=== PATIENT | female | born 1955 | race Caucasian/White ===

== ENCOUNTER 2022-01-04 09:54 | Outpatient (CLI) | payer MEDICARE, SELFPAY ==
[2022-01-04 13:31] LABS: Basophils Absolute Auto 0.03 K/uL (0.00-0.30); Basophils Percent Auto 0.4 % (0.0-3.0); Eosinophils Percent Auto 1.5 % (0.0-7.0); Hematocrit 37.9 % (33.0-51.0); Hemoglobin* 12.3 gm/dL (12.0-16.0); Lymphocytes Absolute Auto 1.83 K/uL (0.90-2.90); Lymphocytes Percent Auto 27.1 % (20-44); Mean Corpuscular HGB Conc 33 gm/dL (32-36); Mean Corpuscular Hemoglobin 31 pg (26-34); Mean Corpuscular Volume 95 fL (80-100); Monocytes Percent Auto 6.8 % (0.0-11.0); Neutrophils Absolute Auto 4.33 K/uL (1.7-7.0); Neutrophils Percent Auto 64.2 % (42.0-72.0); Platelet Count* 259 K/uL (140-440); RDW Coefficient of Variation % 12.2 % (11.5-15.5); Red Blood Count 3.99 m/uL (4.00-5.20); White Blood Count* 6.75 K/uL (4.50-11.00)
[2022-01-04 13:34] LABS: Slide Review Reflex No
== END 2022-01-04 09:55 | disposition home or self-care (01) ==
LOC: KYNREF 10:20
PROVIDERS: PCP Nurse Practitioner Family; Visit Provider Nurse Practitioner Family
DX: R53.83 Other fatigue (principal)
CPT/HCPCS: 36415; 85025

== ENCOUNTER 2022-07-15 11:11 | Outpatient (CLI) | payer MEDICARE, SELFPAY ==
[2022-07-15 13:23] LABS: Chloride* 103 mmol/L (96-114); Potassium* 4.1 mmol/L (3.6-5.1); Sodium* 139 mmol/L (135-149)
[2022-07-15 13:25] LABS: Basophils Absolute Auto 0.07 K/uL (0.00-0.30); Eosinophils Percent Auto 1.4 % (0.0-7.0); Hematocrit 41.1 % (33.0-51.0); Hemoglobin* 13.2 gm/dL (12.0-16.0); Lymphocytes Absolute Auto 2.03 K/uL (0.90-2.90); Lymphocytes Percent Auto 27.9 % (20-44); Mean Corpuscular HGB Conc 32 gm/dL (32-36); Mean Corpuscular Hemoglobin 31 pg (26-34); Mean Corpuscular Volume 96 fL (80-100); Monocytes Percent Auto 8.2 % (0.0-11.0); Neutrophils Absolute Auto 4.48 K/uL (1.7-7.0); Neutrophils Percent Auto 61.5 % (42.0-72.0); Platelet Count* 255 K/uL (140-440); Red Blood Count 4.28 m/uL (4.00-5.20); White Blood Count* 7.28 K/uL (4.50-11.00)
[2022-07-15 13:26] LABS: Carbon Dioxide* 30 mmol/L (20-32); Creatinine* 0.7 mg/dL (0.5-1.5); Estimated Glomerular Filt Rate 95 ml/min
[2022-07-15 13:27] LABS: Blood Urea Nitrogen* 21 mg/dL (7-30); Calcium* 9.7 mg/dL (8.4-10.6); Glucose* 107 mg/dL (60-115)
[2022-07-15 13:36] LABS: Slide Review Reflex No
[2022-07-15 13:43] LABS: Troponin I* < 0.01 ng/mL (0.01-0.04)
[2022-07-15 13:50] LABS: Vitamin D 25 Hydroxy* 15 ng/mL (30-80)
== END 2022-07-15 11:12 | disposition home or self-care (01) ==
PROVIDERS: PCP Nurse Practitioner Family; Visit Provider Nurse Practitioner Family
DX: R53.83 Other fatigue (principal); R07.9 Chest pain, unspecified; E03.9 Hypothyroidism, unspecified; Z79.899 Other long term (current) drug therapy; I10 Essential (primary) hypertension; F41.9 Anxiety disorder, unspecified
CPT/HCPCS: 80048; 82306; 84443; 84484; 85025

== ENCOUNTER 2022-09-01 15:09 | Outpatient (CLI) | payer MEDICARE, SELFPAY ==
--- NOTE | 2022-09-01 15:20 | CRLHL7_ITS ---
For Patients: As a result of the Cures Act, medical imaging exams and procedure reports are released immediately into your electronic medical record. You may view this report before your referring provider. If you have questions, please contact your health care provider. BILATERAL SCREENING MAMMOGRAM WITH COMPUTER-AIDED DETECTION AND TOMOSYNTHESIS TECHNIQUE: CC and MLO views were obtained. These mammographic images have been obtained using full-field digital technique. These mammographic images were interpreted with the benefit of computer-aided detection. Breast tomosynthesis was used in this interpretation. COMPARISON FILM: 06/24/21; 01/17/20; 10/21/17. FINDINGS: There are scattered areas of fibroglandular density. IMPRESSION: There is no radiographic evidence for malignancy. ASSESSMENT: BI-RADS Category 1: Negative RECOMMENDATION: Routine screening mammogram in 1 year. A lay language report of this examination will be provided to the patient. ASCENCION GRAHAM M.D. Diagnostic Radiologist [email or web address] Transcribed: 09/02/2022, 2:[address]/Dictated by: Ascencion Graham MD @ 09/02/2022 8:52:00 AM (Electronically Signed)
== END 2022-09-01 15:10 | disposition home or self-care (01) ==
LOC: MAMMO 15:10
PROVIDERS: PCP Nurse Practitioner Family; Visit Provider Nurse Practitioner Family
DX: Z12.31 Encounter for screening mammogram for malignant neoplasm of breast (principal)
CPT/HCPCS: 77063; 77067

== ENCOUNTER 2023-03-17 09:59 | Outpatient (CLI) | payer MEDICARE, SELFPAY ==
[2023-03-17 14:22] LABS: SARS PCR* Negative SARS-CoV-2 (Negative)
== END 2023-03-17 10:00 | disposition home or self-care (01) ==
LOC: KYNREF 09:59
PROVIDERS: PCP Nurse Practitioner Family; Visit Provider Nurse Practitioner Family
DX: J11.1 Influenza due to unidentified influenza virus with other respiratory manifestations (principal); R53.83 Other fatigue
CPT/HCPCS: 87635

== ENCOUNTER 2023-07-04 14:51 | Outpatient (CLI) | payer MEDICARE, SELFPAY ==
--- OUTSIDE RECORDS SUMMARY | 2023-07-04 14:57 | XMS_ITS | Encounter Summary ---
Author Name Unknown Organization [facility] Address [address] [place] [address] Care Team Providers Care Hoof And Shoe Inspector Name Role Phone Elsewhere, Pcp Primary Care Provider Unavailabl e Reason for Visit * Reason Comments Med Refill Encounter Details Date Type Department Care Team (Late st Contact Info) Description 07/03/2022 Refill Department of Family Medicine, [facility], in [place], [place] [address] [place] [address] Navi Nguyen, Malathi-Trae., P.A. [address] [place] [address] Med Refill Social History Tobacco Use Types Packs/Day Years Used Date Smoking Tobacco: Never Smokeless Tobacco: Never Alcohol Use Standard Drinks/Week Comments No 0 (1 standard drink = 0.6 oz pur e alcohol) rare Humiliation, Afraid, Rape, and Kick questionnair e Answer Date Recorded Within the last year, have y ou been afraid of your partner or ex-partner? No 06/24/2021 Within the last year, have y ou been humiliated or emotionally abused in other ways by your partner or ex-partner? No Within the last year, have y ou been kicked, hit, slapped, or otherwise physically hurt by your partner or ex-partner? No 06/24/2021 Within the last year, have y ou been raped or forced to have any kind of sexual activity by your partner or ex-partner? No 06/24/2021 Social Connection and Isolat ion Panel [NHANES] Answer Date Recorded In a typical week, how many times do you talk on the phone with family, friends, or neighbors? More than three times a week 06/24/2021 How often do you get togethe r with friends or relatives? Three times a week 06/24/2021 How often do you attend chur ch or uatsdin services? More than 4 times per year 06/24/2021 Do you belong to any clubs o r organizations such as cheondoism groups, unions, fraternal or athletic groups, or school groups? Yes 06/24/2021 How often do you attend meet ings of the clubs or organizations you belong to? 1 to 4 times per year 06/24/2021 Are you , , di vorced, , never , or living with a partner? 06/24/2021 AUDIT-C Answer Date Recorded Q1: How often do you have a drink containing alc ohol? Never 06/24/2021 Q2: How many drinks containi ng alcohol do you have on a typical day when you are drinking? 1 or 2 06/24/2021 Q3: How often do you have six or more drinks on one occasion? Never 06/24/2021 Overall Financial Resource Strain (CARDIA) Answe r Date Recorded How hard is it for you to pa y for the very basics like food, housing, medical care, and heating? Not hard at all 06/24/2021 PHQ-2 Answer Date Recorded PHQ-2 Score 1 03/25/2021 [facility] Answer Date Recorded Do you feel stress - tense, restless, nervous, or anxious, or unable to sleep at night because your mind is troubled all the time - these days? To some extent 06/24/2021 Exercise Vital Sign Answer Date Recorde d On average, how many days pe r week do you engage in moderate to strenuous exercise (like a brisk walk)? 3 days 06/24/2021 On average, how many minutes do you engage in exercise at this level? 30 min 06/24/2021 Hunger Vital Sign Answer Date Recorded Within the past 12 months, y ou worried that your food would run out before you got the money to buy more. Never true 06/24/19 Within the past 12 months, t he food you bought just didn't last and you didn't have money to get more. Never true 06/24/2021 PRAPARE - Transportation Answer Date Re corded In the past 12 months, has l ack of transportation kept you from medical appointments or from getting medications? No 06/13 In the past 12 months, has l ack of transportation kept you from meetings, work, or from getting things needed for daily living? No 06/24/2021 Housing Stability Vital Sign Answer Tony e Recorded In the last 12 months, was t here a time when you were not able to pay the mortgage or rent on time? No 06/24/2021 In the last 12 months, how many places have you lived? 1 06/24/2021 In the last 12 months, was t here a time when you did not have a steady place to sleep or slept in a long term (including now)? No 06/24/2021 Depression Answer Date Recor ded PHQ-9 Total Score (max 27) 7 03/25 Nutrition Answer Date Recorded Nutrition: EVOO Fat Source Yes 06/24 On average, how many serving s of fruits and vegetables do you eat per day (serving size is equal to 1 cup or approximately the size of a tennis ball)? 2-3 06/24/2021 Dental Answer Date Recorded Dental: Regular Dentist Yes 12/11/19 Employment Answer Date Recorded Employment status Retired 06/24/2021 Education Answer Date Recorded What is the highest level of school you have completed or the highest degree you have received? 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
--- OUTSIDE RECORDS SUMMARY | 2023-07-04 14:57 | XMS_ITS | Encounter Summary ---
Author Name Unknown Organization [facility] Address [address] [place] [address] Care Team Providers Care Spring Layer Name Role Phone Elsewhere, Pcp Primary Care Provider Unavailabl e Reason for Referral * MRI/CAT/PET Scan (Routine) - Closed Specialty Diagnoses / Procedures Referred By Contac t Referred To Contact Radiology Diagnoses Nodules Pulmonary Multiple Procedures CT Chest without IV Contrast LA CT THORAX WO CNTRST LA 3D WO IND WORKSTATION Sravanthi Atkins M.D. [address] [place] [phone] [facility] Referral ID Status Reason Start Date Expiration Date Visits Re quested Visits Authorized [id number] Closed 08/30/2022 08/30/2023 1 1 Reason for Visit * MRI/CAT/PET Scan (Routine) - Closed Specialty Diagnoses / Procedures Referred By Contac t Referred To Contact Radiology Diagnoses Nodules Pulmonary Multiple Procedures CT Chest without IV Contrast LA CT THORAX WO CNTRST LA 3D WO IND WORKSTATION Sravanthi Atkins M.D. [address] [place] [phone] [facility] Referral ID Status Reason Start Date Expiration Date Visits Re quested Visits Authorized [id number] Closed 08/30/2022 08/30/2023 1 1 Encounter Details Date Type Department Care Team (Latest Contact Info) Description 11/30/2022 8:56 AM CDT - 11/30/2022 11:59 PM CDT Hospital Encounter Department of Radiology, [facility], in [place], [place] [address] [place] [address] Sravanthi Atkins M.D. [address] [place] [address] Nodules Pulmonary Multiple Discharge Disposition: Home or Self Care Social History Tobacco Use Types Packs/Day Years [...] 06/24/2021 How often do you attend chur or bahai services? More than 4 times per year 06/24/2021 Do you belong to any clubs o r organizations such as druze groups, unions, fraternal or athletic groups, or [...] Answer Date Recorded PHQ-2 Score 1 03/25/2021 [facility] - Occupational Stress Questionnaire Answer Date Recorded [...] money to buy more. Never true 06/24/19 22 Within the past 12 months, t he [...] place to sleep or slept in a half-way (including now)? No 06/24/2021 Depression Answer Date [...] Date Recorded Dental: Regular Dentist Yes 12/11/19 21 Employment Answer Date Recorded Employment status Retired 06/24/2021 Education Answer Date Recorded What is the highest level of school you have completed or the highest degree you have received? 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 0 08/27/2014 hydroCHLOROthiazide (HYDRODIURIL) 25 mg tablet Take 1 tablet (25 mg total) by mouth daily. 90 tablet 0 04/07/2022 ibuprofen (for_ADVIL,MOTRIN) 200 mg tablet Take 1-2 tablets by mouth as needed. 0 01/03/2012 levothyroxine (SYNTHROID, LEVOTHROID) 75 mcg tablet Take 1 tablet (75 mcg total) by mouth daily with breakfast. 90 tablet 0 04/07/2022 omeprazole (PriLOSEC) [address] capsule Take 1 capsule (40 mg total) by mouth every morning before breakfast. 90 capsule 0 04/07/2022 sertraline (ZOLOFT) 100 mg tablet Take 1.5 tablets (150 mg total) by mouth daily. 135 tablet 3 07/05/2022 Ventolin HFA inhaler INHALE TWO PUFFS BY MOUTH EVERY 6 HOURS NEEDED FOR WHEEZING 1 Inhaler 3 06/24/2020 documented as of this encounter Plan of Treatment Not on file documented as of this encounter Procedures Procedure Name Priority Date/Time Associated Diagnosis Comments CT CHEST WITHOUT IV CONTRAST RAD - Routine (most inpatients and all outpatients) 11/30/2022 9:09 AM CDT Nodules Pulmonary Multiple documented in this encounter Results * CT Chest without IV Contrast (11/30/2022 9:09 AM CDT) Anatomical Region Laterality Modality Chest, Thoracic RST LOS, Tho racic ARZ LOS, Thoracic FLA LOS N/A Computed Tomography, Compute d Tomography 11/30/2022 2:55 PM CDT Impressions 11/30/2022 3:17 PM CDT Unchanged pulmonary nodules. Narrative 11/30/2022 3:17 PM CDT EXAM: CT CHEST WITHOUT IV CONTRAST COMPARISON: CT chest with IV contrast 08/30/2022. FINDINGS: Multiple bilateral noncalcified solid pulmonary nodules are unchanged in size and number. Nodules measure between sub-3 mm (example in the peripheral left upper lobe anterior segment on series 3, image 184) and 13 mm x 9 mm (average 11 mm in the central right middle lobe medial segment on series 3, image 329 and remeasured as 13 mm x 9 mm on prior series 3, image 342). Unchanged part solid pulmonary nodule measuring 11 mm greatest dimension part solid pulmonary nodule with 4 mm noncalcified solid component in the peripheral anterior right apex (series 3, images 67 and 68). Similar mild diffuse bronchial wall thickening and mosaic attenuation of the lungs compatible with small airway disease, however, no expiratory images obtained today to confirm air trapping. No pleural effusion or pneumothorax. Similar trace simple fluid in the superior pericardial recesses that should be physiologic. Mild multivessel coronary artery calcification by qualitative assessment. Similar fusiform ectasia of the thoracic aorta with mild calcification. Left-sided aortic arch with normal variant common origin of the innominate left common carotid arteries. Similar fusiform ectasia of the thoracic aortic arch branches. Main pulmonary artery measures upper limits of normal in caliber. Similar small sliding esophageal hiatal hernia. Nondilated upstream thoracic esophagus. No pneumomediastinum. No lymphadenopathy. Redemonstration of calcified subcarinal mediastinal lymph nodes consistent with remote granulomatous disease. Negative adrenal glands. Unchanged simple appearing hepatic cyst. Similar mild atrophy of the partially visualized proximal pancreas. Unchanged simple appearing intramuscular lipoma in the medial left pectoralis major muscle. Procedure Note Therese Andrade M.D. - 11/30/2022 EXAM: CT CHEST WITHOUT IV CONTRAST COMPARISON: CT chest with IV contrast 08/30/2022. FINDINGS: Multiple bilateral noncalcified solid pulmonary nodules are unchanged insize and number. Nodules measure between sub-3 mm (example in the peripheral left upper lobeanterior segment on series 3, image 184) and 13 mm x 9 mm (average 11 mm in the central right middlelobe medial segment on series 3, image 329 and remeasured as 13 mm x 9 mm on prior series 3, [id number]). Unchanged part solid pulmonary nodule measuring 11 mm greatest dimensionpart solid pulmonary nodule with 4 mm noncalcified solid component in the peripheral anterior rightapex (series 3, images 67 and 68). Similar mild diffuse bronchial wall thickening and mosaic attenuation ofthe lungs compatible with small airway disease, however, no expiratory images obtained today toconfirm air trapping. No pleural effusion or pneumothorax. Similar trace simple fluid in the superior pericardial recesses thatshould be physiologic. Mild multivessel coronary artery calcification by qualitative assessment.Similar fusiform ectasia of the thoracic aorta with mild calcification. Left-sided aortic arch with normalvariant common origin of the innominate left common carotid arteries. Similar fusiform ectasia ofthe thoracic aortic arch branches. Main pulmonary artery measures upper limits of normal incaliber. Similar small sliding esophageal hiatal hernia. Nondilated upstreamthoracic esophagus. No pneumomediastinum. No lymphadenopathy. Redemonstration of calcified subcarinal mediastinallymph nodes consistent with remote granulomatous disease. Negative adrenal glands. Unchanged simple appearing hepatic cyst. Similarmild atrophy of the partially visualized proximal pancreas. Unchanged simple appearing intramuscular lipoma in the medial leftpectoralis major muscle. IMPRESSION: Unchanged pulmonary nodules. Sravanthi RAYA CT PROCEDURES documented in this encounter Visit Diagnoses Diagnosis Nodules Pulmonary Multiple documented in this encounter Additional Health Concerns Assessment Noted Time PHQ-9 Depression Total Score: 7 03/25/20 21 1:02 PM CDT documented as of this encounter Care Teams Spring Layer Relationship Specialty Start Date End Date Elsewhere, Pcp PCP - General Internal Medicine 02/01/22 documented as of this encounter
--- OUTSIDE RECORDS SUMMARY | 2023-07-04 14:57 | XMS_ITS | Encounter Summary ---
Author Name Unknown Organization [facility] Address [address] [place] [address] Care Team Providers Care Boom Cat Operator Name Role Phone Elsewhere, Pcp Primary Care Provider Unavailabl e Reason for Referral * Outpatient (Routine) - Authorized Specialty Diagnoses / Procedures Referred By Farida arreola Referred To Contact Ophthalmology David Pinon Jr., M.D. [address], [place] [address] [facility] Region Referral ID Status Reason Start Date Expiration Date V isits Requested Visits Authorized [id number] Authorized 01/31/2023 01/30/2026 1 1 Reason for Visit * Reason Comments Eye Exam * Appointment Request (Routine) - Closed Specialty Diagnoses / Procedures Referred By Farida arreola Referred To Contact Ophthalmology Diagnoses Eye Examination Normal Referral ID Status Reason Start Date Expiration Date Visits Re quested Visits Authorized [id number] Closed 2022 2023 1 1 Encounter Details Date Type Department Care Team (Latest Contact Info) Description 01/31/2023 10:45 AM CDT Comprehensive Visit Department of Ophthalmology in [place], [place] [address], [place] [address] David Pinon Jr., M.D. [address], [place] [address] Preglaucoma Bilateral (Primary Dx); Sinusitis Acute Frontal Social History Tobacco Use Types Packs/Day Years [...] week 06/24/2021 How often do you attend [facility] or sikhism services? More than 4 times per year 06/24/2021 Do you belong to any clubs o r organizations such as confucianism groups, unions, fraternal or athletic groups, or [...] Answer Date Recorded PHQ-2 Score 1 03/25/2021 [facility] - Occupational Stress [...] place to sleep or slept in a [place] [facility] [place] (including now)? 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 - 01/31/2023 10:45 AM CDT Margaret Castillo was seen today for Eye Exam #1 Preglaucoma Bilateral #2 Sinusitis Acute Frontal OCT stable, but watch intraocular pressure #2 Keflex 500 QID po x 10 days If not better, new glasses RTO 1 year documented in this encounter Plan of Treatment Scheduled Referrals Name Type Priority Associated Diagnoses Order Schedule Ophthalmology office visit (clinic) Outpatient Referral Routine Expected: 02/01/2024 (Approximate), Expires: 05/03/2024 documented as of this encounter Procedures Procedure Name Priority Date/Time Associated Diagnosis Comments OPTICAL COHERENCE TOMOGRAPHY (OCT) - OPTIC NERVE - OU - BOTH EYES Routine 01/31/2023 11:39 AM CDT Preglaucoma Bilateral documented in this encounter Results * Optical Coherence Tomography - Optic Nerve - OU - Both Eyes (01/31/2023 11:39 AM CDT) Narrative OPHTHALMOLOGY IMAGING EXAM - 01/31/2023 11:39 AM CDT Pattern unchanged, RNFL thickness unchanged, cup-to-disc ratio unchanged. David Pinon Jr., M.D. OPHTH TOMOGRAPH Y OPHTHALMOLOGY IMAGING EXAM documented in this encounter Visit Diagnoses Diagnosis Preglaucoma Bilateral- Primary Sinusitis Acute Frontal documented in this encounter Additional Health Concerns Assessment Noted Time PHQ-9 Depression Total Score: 7 03/25/20 21 1:02 PM CDT documented as of this encounter Care Teams Boom Cat Operator Relationship Specialty Start Date End Date Elsewhere, Pcp PCP - General Internal Medicine 02/01/22 documented as of this encounter
--- OUTSIDE RECORDS SUMMARY | 2023-07-04 14:57 | XMS_ITS ---
Author Name Unknown Organization [facility] Address [address] [place] [address] Care Team Providers Care Assurance Analyst Name Role Phone Unavailable Unavailable Unavailable Surgery Details Not on file Complications Check Surgery Details section. Procedure Estimated Blood Loss Check Surgery Details section. Procedure Findings Check Surgery Details section. Procedure Specimens Taken Check Surgery Details section.
--- OUTSIDE RECORDS SUMMARY | 2023-07-04 14:57 | XMS_ITS | Referral Summary ---
Author Name Unknown Organization [facility] Address [address] [place] [address] Care Team Providers Care Food Safety Specialist Name Role Phone Elsewhere, Pcp Primary Care Provider Unavailabl e Source Comments Patient records contain information from all sites at [facility]. For routine questions regarding patient records, call [phone] during business hours, M-F 8:00 AM - 5:00 PM Central Time. Record requests for emergency care only can be directed to [phone] at any time.[facility] Allergies Active Allergy Reactions Criticality Noted Date Comments Hydrocortisone Other (see comments) Medium 01/31/2012 Throat tightening Triamcinolone Other (see comments) Medium 01/31/2012 Unclear symptoms and many years ago. Has tried other steroid formulations without recurrent or severe intolerances. Medications Medication Sig Dispensed Refills Start Date End Date Status acetaminophen (TYLENOL EXTRA STRENGTH) 500 mg tablet Take 1 tablet by mouth every 6 (six) hours as needed. 0 08/27/2014 Active ibuprofen (for_ADVIL,MOTRIN) 200 mg tablet Take 1-2 tablets by mouth as needed. 0 01/03/2012 Active ipratropium-albute rol (DUO-NEB) 0.5-2.5 mg/3 mL nebulizer solution Take 3 mL by nebulization 4 (four) times a day as needed for wheezing or shortness of breath (shortness of breath, wheezing). 360 mL 11 06/19/2018 Active Ventolin HFA inhaler INHALE TWO PUFFS BY MOUTH EVERY 6 HOURS NEEDED FOR WHEEZING 1 Inhaler 3 06/24/2020 Active hydroCHLOROthiazid e (HYDRODIURIL) 25 mg tablet Take 1 tablet (25 mg total) by mouth daily. 90 tablet 0 04/07/2022 Active levothyroxine (SYNTHROID, LEVOTHROID) 75 mcg tablet Take 1 tablet (75 mcg total) by mouth daily with breakfast. 90 tablet 0 04/07/2022 Active omeprazole (PriLOSEC) [address] capsule Take 1 capsule (40 mg total) by mouth every morning before breakfast. 90 capsule 0 04/07/2022 Active sertraline (ZOLOFT) 100 mg tablet Take 1.5 tablets (150 mg total) by mouth daily. 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, unspecified Asthma NOS 07/08/2009 Overview: Asthma Chronic Asthma Chronic 04/23/2009 Resolved Problems Problem Noted Date Diagnosed Date Resolved Date Nevi Multiple 09/30/2017 01/19/2021 Need Vaccine Immunization 05/26/2017 Hypertension Chronic 06/09/2012 021 Immunizations Name Administration Dates Next Due DTP 03/21/1962,06/13/1956 DTaP (Infanrix, Tripedia) 03/12/2009 HepB, Unspecified 10/06/1992,05/15/1992,04/04/19 92 Influenza (IM) Preservative Free 05/08/2013 Influenza, Seasonal, Injectable 04/30/2008 Influenza, Unspecified 03/12/2009,05/31/2007 OPV 05/09/1973,06/13/1957,06/13/1956 PPSV23 01/19/2021,04/23/2009 SARS-COV-2 (COVID-19) - PFIZ ER (12 years or older) 10/07/2020,09/03/2020 Td (Adult), adsorbed 03/21/1990,06/13/1964 Td Preservative Free (TENIVA C, DECAVAC) 01/02/2020 Td, (Adult) Unspecified 11/25/1997,05/09/1993 Tdap 03/12/2009,04/30/2008 influenza vaccine quad (FLUZONE/FLUARIX) (6 months and older)(PF) 03/26/2020,05/26/2017,07/26/2016,2013 Social History Tobacco Use Types Packs/Day Years Used Date Smoking Tobacco: Never Smokeless Tobacco: Never Tobacco Cessation:Counseling Given: Yes Alcohol Use Standard Drinks/Week Comments No 0 [...] How often do you attend chur or orthodox services? More than 4 times per year 06/24/2021 Do you belong to any clubs o r organizations such as jain groups, unions, fraternal or athletic groups, or [...] Answer Date Recorded PHQ-2 Score 1 03/25/2021 [facility] - Occupational Stress [...] place to sleep or slept in a prison (including now)? 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 Gender Identity Female 01/12/2018 9:08 AM CDT Sexual Orientation Straight 01/12/2018 9: 08 AM CDT Last Filed Vital Signs Vital Sign Reading Time Taken Comments Blood Pressure 121/66 01/19/2021 11:15 AM CDT Pulse 65 01/19/2021 11:15 AM CDT Temperature 36.5 ??C (97.7 ??F) 01/19/2021 11:15 AM C DT Respiratory Rate 16 01/19/2021 11:15 AM CDT Oxygen Saturation 96% 01/19/2021 11:15 AM CDT Inhaled Oxygen Concentration - - Weight 89 kg (196 lb 3.4 oz) 01/19/2021 11:15 AM CDT Height 160 cm (5' 2.99) 01/19/2021 11:15 AM CDT Body Mass Index 34.77 01/19/2021 11:15 AM CDT Plan of Treatment Not on file Care Teams Food Safety Specialist Relationship Specialty Start Date End Date Elsewhere, Pcp PCP - General Internal Medicine 02/01/22
--- OUTSIDE RECORDS SUMMARY | 2023-07-04 14:57 | XMS_ITS | Encounter Summary ---
Author Name Unknown Organization [facility] Address [address] [place] [address] Care Team Providers Care Cinder Worker Name Role Phone Elsewhere, Pcp Primary Care Provider Unavailabl e Encounter Details Date Type Department Care Team (Late st Contact Info) Description 01/31/2023 11:30 AM CDT Silent Schedule Department of Ophthalmology in [place], [place] [address] [phone] David Pinon Jr., M.D. [address] [address] Social History Tobacco Use Types Packs/Day Years [...] often do you attend chur ch or gnosticism services? More than 4 times per year 06/24/2021 Do you belong to any clubs o r organizations such as jainism groups, unions, fraternal or athletic groups, or [...] Answer Date Recorded PHQ-2 Score 1 03/25/2021 [facility] Questionnaire Answer Date Recorded [...] place to sleep or slept in a senior care (including now)? 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
--- OUTSIDE RECORDS SUMMARY | 2023-07-04 14:57 | XMS_ITS | Encounter Summary ---
Author Name Unknown Organization [facility] Address [address] [place] [address] Care Team Providers Care Mine Car Mechanic Name Role Phone Elsewhere, Pcp Primary Care Provider Unavailabl e Reason for Visit * Reason Comments Med Refill Encounter Details Date Type Department Care Team (Late st Contact Info) Description 07/05/2022 Refill Department of Family Medicine, [facility], in [place], [place] [address] [place] [address] Navi Nguyen, Malathi-Trae., P.A. [address] [place] [address] Med Refill Social History Tobacco [...] often do you attend chur ch or judaism services? More than 4 times per year 06/24/2021 Do you belong to any clubs o r organizations such as yarsanism groups, unions, fraternal or athletic groups, or [...] Answer Date Recorded PHQ-2 Score 1 03/25/2021 [facility] Questionnaire Answer Date [...] place to sleep or slept in a [facility] (including now)? 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
--- OUTSIDE RECORDS SUMMARY | 2023-07-04 14:57 | XMS_ITS | Clinical Summary ---
Author Name Unknown Organization [facility] Address [address] [place] [address] Care Team Providers Care Slurry Tank Tender Name Role Phone Elsewhere, Pcp Primary Care Provider Unavailabl e Source Comments Patient records contain information from all sites at [facility]. For routine questions regarding patient records, call [phone] during business hours, M-F 8:00 AM - 5:00 PM Central Time. Record requests for emergency care only can be directed to [phone] at any time.[facility] Allergies Active Allergy Reactions Criticality Noted Date [...] quad (FLUZONE/FLUARIX) (6 months and older)(PF) 03/26/2020,05/26/2017,07/26/2016,2013 Family History Medical History Relation Name Comments No Known Problems Brother 1 Colon cancer Brother 2 Diabetes Brother 3 Lung cancer Brother 4 Smoker Brother 4 No Known Problems Brother 5 COPD Father Diabetes Father Hypertension Father Smoker Father Stroke Father Breast cancer Father's Sister Cataracts Mother Coronary artery disease Mother Diabetes Mother Endometrial cancer Mother Heart attack Mother stents Hip fracture Mother Hypertension Mother Lung cancer Mother secondhand smok e exposure No Known Problems Sister 1 No Known Problems Sister 2 Relation Name Status Comments Brother 1 (Age 42) Brother 2 Alive Brother 3 Alive Brother 4 Alive Brother 5 Alive Father (Age 81) Father's Sister Maternal Grandfather Maternal Grandmother Mother (Age 83) Paternal Grandfather Paternal Grandmother Sister 1 Alive Sister 2 Alive Social History Tobacco Use Types Packs/Day Years [...] often do you attend chur ch or episcopal services? More than 4 times per year 06/24/2021 Do you belong to any clubs o r organizations such as jew groups, unions, fraternal or athletic groups, or [...] Answer Date Recorded PHQ-2 Score 1 03/25/2021 [facility] - Occupational [...] Sex Assigned at Female 06/24/2021 3:47 PM BODY HANGER Gender Identity Female 01/12/2018 9:08 AM CDT [...] 01/19/2021 11:15 AM CDT Plan of Treatment Health Maintenance Due Date Last Done Comments Bone Density Scan (Osteoporo sis Screen) 1955 CT Colonography 1955 Cologuard 1955 Office Visit for Blood Press ure Check / Re-check 1955 Zoster Vaccines (1 of 2) 08/23/2005 Colonoscopy 07/14/2017 07/14/2012 (Perf ormed elsewhere), 05/14/2008 Colorectal Cancer Surveillance 07/14/2017 Mammogram 01/16/2021 01/17/2020, 05/0 06/2017, 07/22/2016, Additional history exists Depression Monitoring (PHQ-9) 07/26/2021 03/25/2021 Creatinine Level (Kidney Fun ction Test) 12/18/2021 12/18/2020, 05/12/2020, 01/17/2020, Additional history exists Lipid (Cholesterol) Screening 12/18/2021, 01/17/2020, 09/29/2017, Additional history exists Potassium Level 12/18/2021 12/18/2020, 04/15, 01/17/2020, Additional history exists Sodium Level 12/18/2021 12/18/2020, 04/15, 01/17/2020, Additional history exists Thyroid Stimulating Hormone (TSH) test for thyroid function 12/18/2021 12/18/2020, 01/17/2020, 09/29/2017, Additional history exists Pneumococcal vaccine (65+ ye ars) (2 of 2 - PCV) 01/19/2022 01/19/2021, 04/23/2009 COVID-19 Vaccine (4 - 2022-2 4 season) 2023 05/09/2021, 10/07/2020, 09/03/2020 Influenza Vaccine (#1) 2023 , 03/26/2020, 05/26/2017, Additional history exists Fall Risk Screen (Annual) 06/13/2023 Fasting Glucose for Diabetes Screening 12/19/2023 12/18/2020, 05/12/2020, 01/17/2020, Additional history exists DTaP,Tdap,and Td Vaccines (9 - Td or Tdap) 04/16/2031 04/16/2021, 01/02/2020, 03/12/2009, Additional history exists Hepatitis B Vaccines Completed 10/06/1992, 05/15/1992, 04/04/1992 Hepatitis C Screening Completed 09/29/2017 Care Teams Slurry Tank Tender Relationship Specialty Start Date End Date Elsewhere, Pcp PCP - General Internal Medicine 02/01/22
--- OUTSIDE RECORDS SUMMARY | 2023-07-04 14:57 | XMS_ITS | Encounter Summary ---
Author Name Unknown Organization [facility] Address [address] [place] [address] Care Team Providers Care Credit And Collections Analyst Name Role Phone Elsewhere, Pcp Primary Care Provider Unavailabl e Reason for Referral * MRI/CAT/PET Scan (Routine) - Closed Specialty Diagnoses / Procedures Referred By Elinaac t Referred To Contact Radiology Diagnoses Nodules Pulmonary Multiple Procedures CT Chest without IV Contrast Sravanthi Atkins M.D. [address] [place] [phone] [facility] Referral ID Status Reason Start Date Expiration Date Visits Re quested Visits Authorized [id number] Closed 02/08/2022 02/08/2023 1 1 Reason for Visit * MRI/CAT/PET Scan (Routine) - Closed Specialty Diagnoses / Procedures Referred By Farida arreola Referred To Contact Radiology Diagnoses Nodules Pulmonary Multiple Procedures CT Chest without IV Contrast Sravanthi Atkins M.D. [address] [place] [phone] [facility] Referral ID Status Reason Start Date Expiration Date Visits Re quested Visits Authorized [id number] Closed 02/08/2022 02/08/2023 1 1 Encounter Details Date Type Department Care Team (Latest Contact Info) Description 08/30/2022 9:48 AM CDT - 08/30/2022 11:59 PM CDT Hospital Encounter Department of Radiology, [facility] in [place], [place] [address] [place] [phone] Sravanthi Atkins M.D. [address] [place] [address] Nodules Pulmonary Multiple Discharge Disposition: Home or [...] week 06/24/2021 How often do you attend [facility] or [facility] services? More than 4 times per year 06/24/2021 Do you belong to any clubs o r organizations such as episcopal groups, unions, fraternal or athletic groups, or [...] Answer Date Recorded PHQ-2 Score 1 03/25/2021 [facility] - Occupational Stress Questionnaire Answer Date Recorded [...] place to sleep or slept in a assisted (including now)? 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 2. ??Slow increase in size of part solid nodule in the right apex, suspicious for low-grade adenocarcinoma. Continued CT follow-up suggested. 3. ??Multiple other bilateral lung nodules are unchanged from recent prior exams, but have increased in size since 2012. Narrative 08/30/2022 10:48 AM CDT EXAM: CT CHEST WITHOUT IV CONTRAST COMPARISON: CT chest 02/08/2022, 06/16/2021 and 2012 FINDINGS: Multiple noncalcified pulmonary solid nodules bilaterally, overall not significantly changed since outside exam 02/08/2022. For example a 12 x 9 mm nodule in the right middle lobe (series 3, image 346), a 5 mm nodule in the right lower lobe (series 3, images 294) and a 4 mm nodule in the left lower lobe (series 3, image 251). Several of the nodules have increased in size compared with the earlier exam from 2012. Slow increase in size of the part solid pulmonary nodule in the right apex. It now measures 11 x 6 mm with a 4 mm solid component (series 3, image 84) compared to 6 x 5 mm with a 3 mm solid component on 06/16/2021 and a 5 mm groundglass nodule on 2012. A 7 x 5 mm nodule in the right lower lobe anteriorly near the major fissure (3/279) has increased from 5 x 4 mm in 2013. A 12 x 9 mm nodule In the right middle lobe medially (3/346) has increased from 10 x 6 mm in 2013. A 5 mm nodule in the right lower lobe laterally (3/294) has increased from 3 mm in 2013. No definite new nodule. Bilateral calcified granulomas with calcified mediastinal node Stable subtle bronchial wall thickening. Mosaic attenuation with moderate air trapping on expiratory images. No pleural effusion. Mild coronary artery calcifications. Unchanged left pectoralis major intramuscular lipoma. Mild degenerative changes of the spine. No suspicious osseous lesions. Small esophageal hiatal hernia. Normal adrenal glands. Stable hepatic cyst. Left renal cyst. Procedure Note Anil Lopes M.D. - 08/30/2022 EXAM: CT CHEST WITHOUT IV CONTRAST COMPARISON: CT chest 02/08/2022, 06/16/2021 and 2012 FINDINGS: Multiple noncalcified pulmonary solid nodules bilaterally, overall notsignificantly changed since outside exam 02/08/2022. For example a 12 x 9 mm nodule in the right middlelobe (series 3, image 346), a 5 mm nodule in the right lower lobe (series 3, images 294) and a 4mm nodule in the left lower lobe (series 3, image 251). Several of the nodules have increased in size compared with the earlierexam from 2012. Slow increase in size of the part solid pulmonary nodule in the right apex. Itnow measures 11 x 6 mm with a 4 mm solid component (series 3, image 84) compared to 6 x 5 mm witha 3 mm solid component on 06/16/2021 and a 5 mm groundglass nodule on 2012. A 7 x 5 mm nodulein the right lower lobe anteriorly near the major fissure (3/279) has increased from 5 x 4 mm [id number]. A 12 x 9 mm nodule In the right middle lobe medially (3/346) has increased from 10 x 6 mm [id number]. A 5 mm nodule in the right lower lobe laterally (3/294) has increased from 3 mm in 2013. No definite new nodule. Bilateral calcified granulomas with calcifiedmediastinal node Stable subtle bronchial wall thickening. Mosaic attenuation with moderateair trapping on expiratory images. No pleural effusion. Mild coronary artery calcifications. Unchanged left pectoralis major intramuscular lipoma. Mild degenerativechanges of the spine. No suspicious osseous lesions. Small esophageal hiatal hernia. Normal adrenal glands. Stable hepaticcyst. Left renal cyst. IMPRESSION: 1. 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 2. Slow increase in size of part solid nodule in the right apex,suspicious for low-grade adenocarcinoma. Continued CT follow-up suggested. 3. Multiple other bilateral lung nodules are unchanged from recent priorexams, but have increased in size since 2013. Sravanthi Atkins M.D. IMG CT PROCEDURES documented in this encounter Visit Diagnoses Diagnosis Nodules Pulmonary Multiple documented in this encounter Additional Health Concerns Assessment Noted Time PHQ-9 Depression Total Score: 7 03/25/20 21 1:02 PM CDT documented as of this encounter Care Teams Credit And Collections Analyst Relationship Specialty Start Date End Date Elsewhere, Pcp PCP - General Internal Medicine 02/01/22 documented as of this encounter
--- OUTSIDE RECORDS SUMMARY | 2023-07-04 14:58 | XMS_ITS | Clinical Summary ---
Author Name Unknown Organization [facility] Address [place], [place] [address] Care Team Providers Care Certified Nurses Aide Name Role Phone Tiffany Fowler NP Primary Care Provider [phone] Allergies No known active allergies Medications Medication Sig Dispensed Refills Start Date End Date Status Levothyroxine 75 mcg cap Take by mouth. 0 Active omeprazole (PRILOSEC) 40 mg Delayed-Release capsuleIndications: heartburn Take 40 mg by mouth once daily. Indications: HEARTBURN 0 Active metoprolol (LOPRESSOR) 25 mg tabletIndications:h ypertension Take 25 mg by mouth 2 times daily. Indications: HYPERTENSION 0 Active hydrochlorothiazide (HCTZ) 25 mg tabletIndications:e angela Take 25 mg by mouth once daily. Indications: EDEMA 0 Active predniSONE (DELTASONE) 10 mg tablet Take 4 pills today and then decrease by 1 pill each day. 10 tablet 0 09/23/2014 Active rx albuterol HFA (PROVENTIL; VENTOLIN) (90 mcg each actuation) inhaler (ED DC MED) Inhale 2 Puffs by mouth 4 times daily. 1 canister 0 09/23/2014 Active rx albuterol HFA (PROVENTIL; VENTOLIN) (90 mcg each actuation) inhaler (ED DC MED)Indications:Mil d persistent asthma without complication Inhale 2 Puffs by mouth 4 times daily. 1 canister 0 02/20/2016 Active albuterol HFA 90 mcg/actuation inhalerIndications: Mild persistent asthma without complication Inhale 2 Puffs by mouth 4 times daily if needed. 1 Inhaler 0 02/20/2016 Active cyclobenzaprine (FLEXERIL) 5 mg tabletIndications:D orsalgia Take 1 tablet by mouth at bedtime if needed for muscle spasms. 30 tablet 0 03/27/2018 Active famotidine (PEPCID) 20 mg tabletIndications:G astroesophageal reflux disease, unspecified whether esophagitis present Take 1 Tablet (20 mg) by mouth 2 times daily if needed for GI Upset or Heartburn. 60 Tablet 0 07/03/2023 Active Active Problems Problem Noted Date Diagnosed Date Personal history of colonic polyps 07/13/2012 Encounters Date Type Department Care Team Description 07/03/2023 10:34 PM HOT KETTLE TENDER - 07/03/2023 11:30 PM HOT KETTLE TENDER Emergency [facility] [address] [place] [address] L[address] [place] PA Gastroesophageal reflux disease, unspecified whether esophagitis present (Primary Dx) Discharge Disposition: Home Self Care 07/03/2023 Travel from Last 3 Months Social History Tobacco Use Types Packs/Day Years Used Date Smoking Tobacco: Never Alcohol Use Standard Drinks/Week Comments No 0 (1 standard drink = 0.6 oz pur e alcohol) Sex and Gender Information Value Date Recorded Sex Assigned at Not on file Gender Identity Not on file Sexual Orientation Not on file Obstetrics History Last Filed Vital Signs Vital Sign Reading Time Taken Comments Blood Pressure 122/84 07/03/2023 11:20 PM HOT KETTLE TENDER Pulse 71 07/03/2023 11:20 PM HOT KETTLE TENDER Temperature 36.6 ??C (97.8 ??F) 07/03/2023 10:[address] Respiratory Rate 16 07/03/2023 10:39 PM HOT KETTLE TENDER Oxygen Saturation 94% 07/03/2023 11:20 PM HOT KETTLE TENDER Inhaled Oxygen Concentration - - Weight 86.4 kg (190 lb 7.6 oz) 07/03/2023 10:39 PM HOT KETTLE TENDER Height 162.6 cm (5' 4) 07/03/2023 10:39 PM HOT KETTLE TENDER Body Mass Index 32.7 07/03/2023 10:39 PM HOT KETTLE TENDER Plan of Treatment Health Maintenance Due Date Last Done Comments Tdap 08/23/1966 Depression screening for age 12+ 1967 BMI (ht and wt on same day) for age 18+ 08/23/1973 Hepatitis C screening for age 18-79 08/23/1973 Tetanus booster 1975 Lipids for age 45-75 08/23/2000 Mammogram for age 45-75 08/23/2000 Zoster (shingles) series for age 50+ (1 of 2) 08/23/2005 Colonoscopy through age 75 07/04/2017 07/04/2012, DEXA/DXA scan for age 65+ 08/23/2020 Pneumococcal series for age 65+ (1 of 1 - PCV) 08/23/2020 COVID-19 vaccine series ( season) 2023 05/09/2021, 10/07/2020, 09/03/2020 Influenza for age 65+ 02/11/2023 Care Teams Certified Nurses Aide Relationship Specialty Start Date End Date Tiffany Fowler NP [address] [place], [place] [address] PCP - General Emergency Medicine 07/03/23
== END 2023-07-04 14:52 | disposition home or self-care (01) ==
PROVIDERS: PCP Nurse Practitioner Family; Visit Provider Nurse Practitioner Family
DX: R10.13 Epigastric pain (principal); K62.5 Hemorrhage of anus and rectum
CPT/HCPCS: 80053; 82150; 83690; 84484

== ENCOUNTER 2023-07-14 07:39 | Outpatient (CLI) | payer MEDICARE, SELFPAY ==
--- OUTSIDE RECORDS SUMMARY | 2023-07-14 07:42 | XMS_ITS | Encounter Summary ---
Author Name Unknown Organization [facility] Address [address] [place] [address] Care Team Providers Care Loader Name Role Phone Elsewhere, Pcp Primary Care Provider Unavailabl e Reason for Referral * MRI/CAT/PET Scan (Routine) - Closed Specialty Diagnoses / Procedures Referred By Elinaac t Referred To Contact Radiology Diagnoses Nodules Pulmonary Multiple Procedures CT Chest without IV Contrast Sravanthi Atkins M.D. [address] [place] [phone] [facility] Referral ID Status Reason Start Date Expiration Date Visits Re quested Visits Authorized [id number] Closed 02/08/2022 02/08/2023 1 1 Reason for Visit * MRI/CAT/PET Scan (Routine) - Closed Specialty Diagnoses / Procedures Referred By Farida arreola Referred To Contact Radiology Diagnoses Nodules Pulmonary Multiple Procedures CT Chest without IV Contrast Sravanthi Atkins M.D. [address] [place] [phone] [facility] Referral ID Status Reason Start Date Expiration Date Visits Re quested Visits Authorized [id number] Closed 02/08/2022 02/08/2023 1 1 Encounter Details Date Type Department Care Team (Latest Contact Info) Description 08/30/2022 9:48 AM CDT - 08/30/2022 11:59 PM CDT Hospital Encounter Department of Radiology, [facility] in [address] [place] [phone] Sravanthi Atkins M.D. [address] [place] [address] Nodules Pulmonary Multiple Discharge Disposition: Home or [...] week 06/24/2021 How often do you attend [facility] or mormon services? More than 4 times per year 06/24/2021 Do you belong to any clubs o r organizations such as scientologist groups, unions, fraternal or athletic groups, or [...] Answer Date Recorded PHQ-2 Score 1 03/25/2021 [facility] - Occupational Stress Questionnaire Answer Date [...] place to sleep or slept in a chcf (including now)? 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 A 12 x 9 mm nodule In the right middle lobe medially (3/346) has increased from 10 x 6 mm [id number]. A 5 mm nodule in the right [...] documented as of this encounter Care Teams Loader Relationship Specialty Start Date End Date Elsewhere, Pcp PCP - General Internal Medicine 02/01/22 documented as of this encounter
--- OUTSIDE RECORDS SUMMARY | 2023-07-14 07:42 | XMS_ITS | Encounter Summary ---
Author Name Unknown Organization [facility] Address [address] [place] [address] Care Team Providers Care Assistant Drafter Name Role Phone Elsewhere, Pcp Primary Care Provider Unavailabl e Reason for Referral * Outpatient (Routine) - Authorized Specialty Diagnoses / Procedures Referred By Farida arreola Referred To Contact Ophthalmology David Pinon Jr., M.D. [address], [place] [address] [facility] Region Referral ID Status Reason Start Date Expiration Date V isits Requested Visits Authorized [id number] Authorized 01/31/2023 01/30/2026 1 1 Reason for Visit * Reason Comments Eye Exam * Appointment Request (Routine) - Closed Specialty Diagnoses / Procedures Referred By Farida arreola Referred To Contact Ophthalmology Diagnoses Eye Examination Normal Referral ID Status Reason Start Date Expiration Date Visits Re quested Visits Authorized [id number] Closed 2022 2023 1 1 Encounter Details Date Type Department Care Team (Latest Contact Info) Description 01/31/2023 10:45 AM CDT Comprehensive Visit Department of Ophthalmology in [place], [place] [address], [place] [address] David Pinon Jr., M.D. [address], [place] [address] Preglaucoma Bilateral (Primary Dx); Sinusitis [...] week 06/24/2021 How often do you attend [facility] or buddhist services? 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
--- OUTSIDE RECORDS SUMMARY | 2023-07-14 07:42 | XMS_ITS ---
Author Name Unknown Organization [facility] Address [address] [place] [address] Care Team Providers Care Sales Representative Girls' Apparel Name Role Phone Unavailable Unavailable Unavailable Surgery Details Not on file Complications Check Surgery Details section. Procedure Estimated Blood Loss Check Surgery Details section. Procedure Findings Check Surgery Details section. Procedure Specimens Taken Check Surgery Details section.
--- OUTSIDE RECORDS SUMMARY | 2023-07-14 07:42 | XMS_ITS | Referral Summary ---
Author Name Unknown Organization [facility] Address [address] [place] [address] Care Team Providers Care Sheet Metal Duct Installer Helper Name Role Phone Elsewhere, Pcp Primary Care Provider Unavailabl e Source Comments Patient records contain information from all sites at [facility]. For routine questions regarding patient records, call [phone] during business hours, M-F 8:00 AM - 5:00 PM Central Time. Record requests for emergency care only can be directed to [phone] at any time.[facility] Allergies Active Allergy Reactions Criticality Noted Date [...] Injectable 04/30/2008 Influenza, Unspecified 03/12/2009,05/31/2007 OPV 05/09/1973,06/13/1957,06/13/1956 PPSV23(Discontinued) 01/19/2021,04/23/2009 SARS-COV-2 (COVID-19) - PFIZ ER (Discontinued)(12 years or older) 10/07/2020,09/03/2020 Td (Adult), adsorbed [...] often do you attend chur ch or congregational services? More than 4 times per year 06/24/2021 Do you belong to any clubs o r organizations such as tenriism groups, unions, fraternal or athletic groups, or [...] Answer Date Recorded PHQ-2 Score 1 03/25/2021 [facility] of Occupat ional Health - Occupational Stress [...] place to sleep or slept in a fdc (including now)? No 06/24/2021 Depression Answer Date [...] Sex Assigned at Female 06/24/2021 3:47 PM DIGITAL PHOTOGRAPHIC PRINTER Gender Identity Female 01/12/2018 9:08 AM CDT [...] of Treatment Not on file Care Teams Sheet Metal Duct Installer Helper Relationship Specialty Start Date End Date Elsewhere, Pcp PCP - General Internal Medicine 02/01/22
--- OUTSIDE RECORDS SUMMARY | 2023-07-14 07:42 | XMS_ITS | Clinical Summary ---
Author Name Unknown Organization [facility] Address [address] [place] [address] Care Team Providers Care Grinding Room Supervisor Name Role Phone Elsewhere, Pcp Primary Care Provider Unavailabl e Source Comments Patient records contain information from all sites at [facility]. For routine questions regarding patient records, call [phone] during business hours, M-F 8:00 AM - 5:00 PM Central Time. Record requests for emergency care only can be directed to [phone] at any time.[facility] Allergies Active Allergy Reactions Criticality Noted [...] often do you attend chur ch or islam services? More than 4 times per year 06/24/2021 Do you belong to any clubs o r organizations such as evangelical groups, unions, fraternal or athletic groups, or [...] Answer Date Recorded PHQ-2 Score 1 03/25/2021 [facility] of Occupat ional Health - Occupational [...] place to sleep or slept in a detention (including now)? No 06/24/2021 Depression Answer Date [...] Sex Assigned at Female 06/24/2021 3:47 PM FURNACE COMBUSTION ANALYST Gender Identity Female 01/12/2018 9:08 AM CDT [...] Colorectal Cancer Surveillance 07/14/2017 Mammogram 01/16/2021 01/17/2020, 06/2017, 07/22/2016, Additional history exists Depression Monitoring [...] Hepatitis C Screening Completed 09/29/2017 Care Teams Grinding Room Supervisor Relationship Specialty Start Date End Date Elsewhere, Pcp PCP - General Internal Medicine 02/01/22
--- OUTSIDE RECORDS SUMMARY | 2023-07-14 07:42 | XMS_ITS | Encounter Summary ---
Author Name Unknown Organization [facility] Address [address] [place] [address] Care Team Providers Care Fisher Diver Net Name Role Phone Elsewhere, Pcp Primary Care Provider Unavailabl e Reason for Visit * Reason Comments Med Refill Encounter Details Date Type Department Care Team (Late st Contact Info) Description 07/03/2022 Refill Department of Family Medicine, [facility], in [place], [place] [address] [place] [address] Navi Nguyen, Malathi-Trae., P.A. [address] [place] [address] Med Refill Social History Tobacco [...] often do you attend chur ch or amish services? More than 4 times per year 06/24/2021 Do you belong to any clubs o r organizations such as taoism groups, unions, fraternal or athletic groups, or [...] Answer Date Recorded PHQ-2 Score 1 03/25/2021 [facility] Questionnaire Answer Date [...] place to sleep or slept in a intermediate (including now)? No 06/24/2021 Depression Answer Date [...] Sex Assigned at Female 06/24/2021 3:47 PM HOME HEALTH CLINICIAN Gender Identity Female 01/12/2018 9:08 AM CDT Sexual Orientation Straight 01/12/2018 9: 08 AM CDT documented as of this encounter Plan of Treatment Not on file documented as of this encounter Visit Diagnoses Not on filedocumented in this encounter Additional Health Concerns Assessment Noted Time PHQ-9 Depression Total Score: 7 03/25/20 21 1:02 PM CDT documented as of this encounter Care Teams Fisher Diver Net Relationship Specialty Start Date End Date Elsewhere, Pcp PCP - General Internal Medicine 02/01/22 documented as of this encounter
--- OUTSIDE RECORDS SUMMARY | 2023-07-14 07:42 | XMS_ITS | Encounter Summary ---
Author Name Unknown Organization [facility] Address [address] [place] [address] Care Team Providers Care Membership Administrator Name Role Phone Elsewhere, Pcp Primary Care Provider Unavailabl e Encounter Details Date Type Department Care Team (Late st Contact Info) Description 01/31/2023 11:30 AM CDT Silent Schedule Department of Ophthalmology in [place], [place] [address] [address] David Pinon Jr., M.D. [address], [place] [address] Social History Tobacco Use Types [...] often do you attend chur ch or quaker services? More than 4 times per year 06/24/2021 Do you belong to any clubs o r organizations such as scientology groups, unions, fraternal or athletic groups, or [...] Answer Date Recorded PHQ-2 Score 1 03/25/2021 [facility] Questionnaire Answer Date [...] place to sleep or slept in a nursing home (including now)? No 06/24/2021 Depression Answer Date [...] Sex Assigned at Female 06/24/2021 3:47 PM HAND CLOTH CUTTER Gender Identity Female 01/12/2018 9:08 AM CDT [...] documented as of this encounter Care Teams Membership Administrator Relationship Specialty Start Date End Date Elsewhere, Pcp PCP - General Internal Medicine 02/01/22 documented as of this encounter
--- OUTSIDE RECORDS SUMMARY | 2023-07-14 07:42 | XMS_ITS | Encounter Summary ---
Author Name Unknown Organization [facility] Address [address] [place] [address] Care Team Providers Care Stake Setter Name Role Phone Elsewhere, Pcp Primary Care Provider Unavailabl e Reason for Referral * MRI/CAT/PET Scan (Routine) - Closed Specialty Diagnoses / Procedures Referred By Contac t Referred To Contact Radiology Diagnoses Nodules Pulmonary Multiple Procedures CT Chest without IV Contrast IL CT THORAX WO CNTRST IL 3D WO IND WORKSTATION Sravanthi Atkins M.D. [address] [place] [phone] [facility] Referral ID Status Reason Start Date Expiration Date Visits Re quested Visits Authorized [id number] Closed 08/30/2022 08/30/2023 1 1 Reason for Visit * MRI/CAT/PET Scan (Routine) - Closed Specialty Diagnoses / Procedures Referred By Contac t Referred To Contact Radiology Diagnoses Nodules Pulmonary Multiple Procedures CT Chest without IV Contrast IL CT THORAX WO CNTRST IL 3D WO IND WORKSTATION Sravanthi Atkins M.D. [address] [place] [phone] [facility] Referral ID Status Reason Start Date Expiration Date Visits Re quested Visits Authorized [id number] Closed 08/30/2022 08/30/2023 1 1 Encounter Details Date Type Department Care Team (Latest Contact Info) Description 11/30/2022 8:56 AM CDT - 11/30/2022 11:59 PM CDT Hospital Encounter Department of Radiology, [facility], in [place], [place] [address] [place] [address] Sravanthi Atkins M.D. [address] [place] [address] Nodules Pulmonary Multiple Discharge Disposition: Home or [...] How often do you attend chur or faith services? More than 4 times per year 06/24/2021 Do you belong to any clubs o r organizations such as christianity groups, unions, fraternal or athletic groups, or [...] Answer Date Recorded PHQ-2 Score 1 03/25/2021 [facility] of Occupat ional Health - Occupational Stress [...] Sex Assigned at Female 06/24/2021 3:47 PM DYER HELPER Gender Identity Female 01/12/2018 9:08 AM CDT [...] x 9 mm on prior series 3, [id number]). Unchanged part solid pulmonary nodule measuring 11 [...] documented as of this encounter Care Teams Stake Setter Relationship Specialty Start Date End Date Elsewhere, Pcp PCP - General Internal Medicine 02/01/22 documented as of this encounter
--- OUTSIDE RECORDS SUMMARY | 2023-07-14 07:43 | XMS_ITS | Clinical Summary ---
Author Name Unknown Organization [facility] Address [place], [place] [address] Care Team Providers Care Stock Dealer Name Role Phone Tiffany Fowler NP Primary Care Provider [phone] Allergies No known active allergies Medications Medication [...] Department Care Team Description 07/03/2023 10:34 PM SUPERVISOR VEGETABLE FARMING - 07/03/2023 11:30 PM SUPERVISOR VEGETABLE FARMING Emergency [facility] [address] [place] [address] Ld Dalal PA Gastroesophageal reflux disease, unspecified [...] Comments Blood Pressure 122/84 07/03/2023 11:20 PM SUPERVISOR VEGETABLE FARMING Pulse 71 07/03/2023 11:20 PM SUPERVISOR VEGETABLE FARMING Temperature 36.6 ??C (97.8 ??F) 07/03/2023 10:[address] Respiratory Rate 16 07/03/2023 10:39 PM SUPERVISOR VEGETABLE FARMING Oxygen Saturation 94% 07/03/2023 11:20 PM SUPERVISOR VEGETABLE FARMING Inhaled Oxygen Concentration - - Weight 86.4 kg (190 lb 7.6 oz) 07/03/2023 10:39 PM SUPERVISOR VEGETABLE FARMING Height 162.6 cm (5' 4) 07/03/2023 10:39 PM SUPERVISOR VEGETABLE FARMING Body Mass Index 32.7 07/03/2023 10:39 PM SUPERVISOR VEGETABLE FARMING Plan of Treatment Health Maintenance Due Date [...] Influenza for age 65+ 02/11/2023 Care Teams Stock Dealer Relationship Specialty Start Date End Date Tiffany Fowler NP [address] [place], [place] [phone] PCP - General Emergency Medicine 07/03/23
--- NOTE | 2023-07-14 09:52 | W.ANESCHARGE ---
Anesthesia Charges Start Date/Time Anesthesia Start Date: 07/14/23 Anesthesia Start Time: 08:49 Stop Date/Time Anesthesia Stop Date: 07/14/23 Anesthesia Stop Time: 09:48
--- NOTE | 2023-07-14 12:39 | W.ANESCHARGE ---
Anesthesia Charges Start Date/Time Anesthesia Start Date: 07/14/23 Anesthesia Start Time: 08:49 Stop Date/Time Anesthesia Stop Date: 07/14/23 Anesthesia Stop Time: 09:48
== END 2023-07-14 07:40 | disposition home or self-care (01) ==
LOC: OP CLINIC 07:40
PROVIDERS: PCP Nurse Practitioner Family; Visit Provider Surgery
DX: Z12.11 Encounter for screening for malignant neoplasm of colon (principal); K64.9 Unspecified hemorrhoids; K63.5 Polyp of colon; Z80.0 Family history of malignant neoplasm of digestive organs; K44.9 Diaphragmatic hernia without obstruction or gangrene; K31.89 Other diseases of stomach and duodenum; K21.9 Gastro-esophageal reflux disease without esophagitis; R10.13 Epigastric pain
CPT/HCPCS: 00813; 43239; 45385; 88305; J2704

== ENCOUNTER 2023-07-29 08:59 | Outpatient (CLI) | payer MEDICARE, SELFPAY ==
--- OUTSIDE RECORDS SUMMARY | 2023-07-29 09:04 | XMS_ITS | Encounter Summary ---
Author Name Unknown Organization [facility] Address [address] [place] [address] Care Team Providers Care Grader Meat Name Role Phone Elsewhere, Pcp Primary Care Provider Unavailabl e Encounter Details Date Type Department Care Team (Late st Contact Info) Description 01/31/2023 11:30 AM CDT Silent Schedule Department of Ophthalmology in [place], [place] [address] [address] David Pinon Jr., M.D. [address], [place] [address] Social History Tobacco Use Types [...] often do you attend chur ch or taoism services? More than 4 times per year [...] Answer Date Recorded PHQ-2 Score 1 03/25/2021 [facility]ational [facility] Questionnaire Answer Date [...] place to sleep or slept in a mcc (including now)? No 06/24/2021 Depression Answer Date [...] Sex Assigned at Female 06/24/2021 3:47 PM HEALTH ANALYTICS CONSULTANT Gender Identity Female 01/12/2018 9:08 AM CDT [...] documented as of this encounter Care Teams Grader Meat Relationship Specialty Start Date End Date Elsewhere, Pcp PCP - General Internal Medicine 02/01/22 documented as of this encounter
--- OUTSIDE RECORDS SUMMARY | 2023-07-29 09:04 | XMS_ITS | Clinical Summary ---
Author Name Unknown Organization [facility] Address [address] [place] [address] Care Team Providers Care Account Executive Sales Representative Name Role Phone Elsewhere, Pcp Primary Care Provider Unavailabl e Source Comments Patient records contain information from all sites at [facility]. For routine questions regarding patient records, call [phone] during business hours, M-F 8:00 AM - 5:00 PM Central Time. Record requests for emergency care only can be directed to [phone] at any time.[facility] Allergies Active Allergy Reactions Criticality Noted [...] often do you attend chur ch or roman catholic services? More than 4 times per year 06/24/2021 Do you belong to any clubs o r organizations such as jewish groups, unions, fraternal or athletic groups, or [...] Answer Date Recorded PHQ-2 Score 1 03/25/2021 [facility] of Occupat ional Health - [...] Sex Assigned at Female 06/24/2021 3:47 PM BOW MACHINE OPERATOR Gender Identity Female 01/12/2018 9:08 [...] Hepatitis C Screening Completed 09/29/2017 Care Teams Account Executive Sales Representative Relationship Specialty Start Date End Date Elsewhere, Pcp PCP - General Internal Medicine 02/01/22
--- OUTSIDE RECORDS SUMMARY | 2023-07-29 09:04 | XMS_ITS | Clinical Summary ---
Author Name Unknown Organization [facility] Address [place], [place] [address] Care Team Providers Care Wheelchair Driver Name Role Phone Tiffany Fowler NP Primary Care Provider [phone]- [phone] Allergies No known active allergies Medications Medication [...] Encounters Date Type Department Care Team Description 07/14/2023 Lab Requisition [facility] [phone] Rashad Sanchez MD 07/03/2023 10:34 PM HUMAN MACHINE INTERFACE ENGINEER - 07/03/2023 11:30 PM HUMAN MACHINE INTERFACE ENGINEER Emergency [address] [address] dL [place] Gastroesophageal reflux disease, unspecified whether [...] Comments Blood Pressure 122/84 07/03/2023 11:20 PM HUMAN MACHINE INTERFACE ENGINEER Pulse 71 07/03/2023 11:20 PM HUMAN MACHINE INTERFACE ENGINEER Temperature 36.6 ??C (97.8 ??F) 07/03/2023 10:[address] Respiratory Rate 16 07/03/2023 10:39 PM HUMAN MACHINE INTERFACE ENGINEER Oxygen Saturation 94% 07/03/2023 11:20 PM HUMAN MACHINE INTERFACE ENGINEER Inhaled Oxygen Concentration - - Weight 86.4 kg (190 lb 7.6 oz) 07/03/2023 10:39 PM HUMAN MACHINE INTERFACE ENGINEER Height 162.6 cm (5' 4) 07/03/2023 10:39 PM HUMAN MACHINE INTERFACE ENGINEER Body Mass Index 32.7 07/03/2023 10:39 PM HUMAN MACHINE INTERFACE ENGINEER Plan of Treatment Health Maintenance Due Date [...] - PCV) 08/23/2020 COVID-19 vaccine series ( - 2022- season) 2023 05/09/2021, 10/07/2020, 09/03/2020 Influenza for age 65+ 02/11/2023 Procedures Procedure Name Priority Date/Time Associated Diagnosis Comments LAB TRACKING EVENT Routine 07/14/2023 9: 10 AM HUMAN MACHINE INTERFACE ENGINEER PATH TISSUE EXAM Routine 07/14/2023 9:10 AM HUMAN MACHINE INTERFACE ENGINEER from Last 3 Months Results * LAB TRACKING EVENT (07/14/2023 9:10 AM HUMAN MACHINE INTERFACE ENGINEER) Other (Other) Client Collect / Unknown 07/14/2023 9:10 AM HUMAN MACHINE INTERFACE ENGINEER 07/14/2023 9:00 PM HUMAN MACHINE INTERFACE ENGINEER Rashad Sanchez MD LAB BILL ONLY [facility] [address] [place] [address], * PATH TISSUE EXAM (07/14/2023 9:10 AM HUMAN MACHINE INTERFACE ENGINEER) Case Report Pathology Report ?Case: [id number] ? Authorizing Provider: ??Rashad Sanchez MD ?Collected: ? 07/14/2023 0910 ? Ordering Location: ? [facility] ?Received: ?07/14/2023 2108 ? Pathologist: ? Eriberto, Stiven Boyd ? IV, MD ? Specimens: ?? A) - Stomach Biopsy ? B) - Distal Esophagus Biopsy ? C) - Mid Esophagus Biopsy ? D) - Cecal Polyp ? E) - Cecal Polyp ? F) - Ascending Colon Polyp ? 07/15/2023 11:03 AM HUMAN MACHINE INTERFACE ENGINEER [facility] ENTRAL LABORATORY Final Diagnosis A) STOMACH, BIOPSY: 1. Normal gastric antral and body mucosae 2. Negative for Helicobacter B) ESOPHAGUS, DISTAL, BIOPSY: 1. Inflammatory changes consistent with reflux esophagitis 2. Negative for eosinophilic esophagitis 3. Negative for columnar mucosa C) ESOPHAGUS, MID, BIOPSY: 1. Inflammatory changes consistent with reflux esophagitis 2. Negative for eosinophilic esophagitis 3. Negative for columnar mucosa D) COLON, APPENDICEAL ORIFICE, POLYPECTOMY: 1. Tubular adenoma 2. Negative for high grade dysplasia 3. Per the colonoscopy report: ?? a. Polyp size: 3 mm ?? b. Resection: Complete ?? c. Retrieval: Complete E) COLON, CECUM, BIOPSY: 1. Normal colonic mucosa; a lymphoid aggregate is present (clinically,1 polyp) 2. Negative for serrated change, dysplasia, and malignancy F) COLON, ASCENDING, POLYPECTOMY: 1. Tubular adenoma 2. Negative for high grade dysplasia 3. Per the colonoscopy report: ?? a. Polyp size: 3 mm ?? b. Resection: Complete ?? c. Retrieval: Complete 07/15/2023 11:03 AM HUMAN MACHINE INTERFACE ENGINEER [facility] LABORAT[facility] Clinical Information Ms. Castillo is a 67 y.o. who presents with dysphagia, as well as reflux symptoms. EGD findings include: -Irregular Z-line at 32 cm - Small hiatus hernia -Antral erythema -Normal duodenum Colonoscopy, done for screening shows: -1, 3 mm appendiceal orifice polyp -1, 2 mm cecal polyp -1, 3 mm ascending polyp 07/15/2023 11:03 AM HUMAN MACHINE INTERFACE ENGINEER [facility] LAB[facility]AT[facility] Gross Description A) Received in formalin are 6 carpenter mucosal fragments averaging 3 mm in greatest dimension, which are entirely submitted in one cassette. It is labeled with the patient's name and designated random stomach. B) Received in formalin are 5 carpenter mucosal fragments averaging 2 mm in greatest dimension, which are entirely submitted in one cassette. It is labeled with the patient's name and designated distal esophagus. C) Received in formalin are 5 carpenter mucosal fragments averaging 3 mm in greatest dimension, which are entirely submitted in one cassette. It is labeled with the patient's name and designated mid esophagus. D) Received in formalin is a carpenter mucosal fragment measuring 13 mm in greatest dimension, which is entirely submitted in one cassette. It is labeled with the patient's name and designated appendiceal orifice polyp. E) Received in formalin is a 25 x 3 mm aggregate of carpenter mucosa. Submitted in one cassette. It is labeled with the patient's name and designated colon-cecum. F) Received in formalin are 4 carpenter mucosal fragments averaging 2 mm in greatest dimension, which are entirely submitted in one cassette. It is labeled with the patient's name and designated colon-ascendin g. Kevyn Napoles 07/14/2023 9:10 PM 07/15/2023 11:03 AM HUMAN MACHINE INTERFACE ENGINEER [facility]AL LABORATORY Microscopic Description The final diagnosis is based on microscopic examination of appropriate sections of all specimens. 07/15/2023 11:03 AM HUMAN MACHINE INTERFACE ENGINEER [facility] LAB[facility]AT[facility] Additional Information Interpreted at [facility], Central Laboratory - [address], [place] [address] 07/15/2023 11:03 AM HUMAN MACHINE INTERFACE ENGINEER [facility] Other (Stomach Biopsy) 07/14/2023 9:10 AM HUMAN MACHINE INTERFACE ENGINEER 07/14/2023 9:08 PM HUMAN MACHINE INTERFACE ENGINEER Specimen (specimen) (Distal Esophagus Biopsy) 07/14/2023 9:10 AM HUMAN MACHINE INTERFACE ENGINEER 07/14/2023 9:08 PM HUMAN MACHINE INTERFACE ENGINEER Specimen (specimen) (Mid Esophagus Biopsy) 07/14/2023 9:10 AM HUMAN MACHINE INTERFACE ENGINEER 07/14/2023 9:08 PM HUMAN MACHINE INTERFACE ENGINEER Specimen (specimen) (Cecal Polyp) 07/14/2023 9:10 AM HUMAN MACHINE INTERFACE ENGINEER 07/14/2023 9:08 PM HUMAN MACHINE INTERFACE ENGINEER Specimen (specimen) (Cecal Polyp) 07/14/2023 9:10 AM HUMAN MACHINE INTERFACE ENGINEER 07/14/2023 9:08 PM HUMAN MACHINE INTERFACE ENGINEER Specimen (specimen) (Ascending Colon Polyp) 07/14/2023 9:10 AM HUMAN MACHINE INTERFACE ENGINEER 07/14/2023 9:08 PM HUMAN MACHINE INTERFACE ENGINEER Rashad Sanchez MD PATHOLOGY/CYTOLOGY [facility]-CENTRAL LABORATORY [address] [place] [address], from Last 3 Months Care Teams Wheelchair Driver Relationship Specialty Start Date End Date Tiffany Fowler NP [address] [place] [address] PCP - General Emergency Medicine 07/03/23
--- OUTSIDE RECORDS SUMMARY | 2023-07-29 09:04 | XMS_ITS | Encounter Summary ---
Author Name Unknown Organization [facility] Address [address] [place] [address] Care Team Providers Care Forestry Technician Name Role Phone Elsewhere, Pcp Primary Care Provider Unavailabl e Reason for Visit * Reason Comments Med Refill Encounter Details Date Type Department Care Team (Late st Contact Info) Description 07/03/2022 Refill Department of Family Medicine, [facility], in [place], [place] [address] [place] [address] Navi Nguyen, Malathi-Trae., P.A. [address] [place] [address] Med Refill Social History Tobacco [...] often do you attend chur ch or jainism services? More than 4 times per year 06/24/2021 Do you belong to any clubs o r organizations such as shinto groups, unions, fraternal or athletic groups, or [...] Recorded PHQ-2 Score 1 03/25/2021 [facility] Answer Date [...] place to sleep or slept in a long-term (including now)? No 06/24/2021 Depression Answer Date [...] Sex Assigned at Female 06/24/2021 3:47 PM REHABILITATION PHYSICIAN Gender Identity Female 01/12/2018 9:08 AM CDT Sexual Orientation Straight 01/12/2018 9: 08 AM CDT documented as of this encounter Plan of Treatment Not on file documented as of this encounter Visit Diagnoses Not on filedocumented in this encounter Additional Health Concerns Assessment Noted Time PHQ-9 Depression Total Score: 7 03/25/20 21 1:02 PM CDT documented as of this encounter Care Teams Forestry Technician Relationship Specialty Start Date End Date Elsewhere, Pcp PCP - General Internal Medicine 02/01/22 documented as of this encounter
--- OUTSIDE RECORDS SUMMARY | 2023-07-29 09:04 | XMS_ITS | Encounter Summary ---
Author Name Unknown Organization [facility] Address [address] [place] [address] Care Team Providers Care Tie Tape Machine Operator Name Role Phone Elsewhere, Pcp Primary Care Provider Unavailabl e Reason for Referral * MRI/CAT/PET Scan (Routine) - Closed Specialty Diagnoses / Procedures Referred By Elinaac t Referred To Contact Radiology Diagnoses Nodules Pulmonary Multiple Procedures CT Chest without IV Contrast Sravanthi Atkins M.D. [address] [place] [phone] [facility] Referral ID Status Reason Start Date Expiration Date Visits Re quested Visits Authorized [id number] Closed 02/08/2022 02/08/2023 1 1 Reason for Visit * MRI/CAT/PET Scan (Routine) - Closed Specialty Diagnoses / Procedures Referred By Farida arreola Referred To Contact Radiology Diagnoses Nodules Pulmonary Multiple Procedures CT Chest without IV Contrast Sravanthi Atkins M.D. [address] [place] [phone] [facility] Referral ID Status Reason Start Date Expiration Date Visits Re quested Visits Authorized [id number] Closed 02/08/2022 02/08/2023 1 1 Encounter Details Date Type Department Care Team (Latest Contact Info) Description 08/30/2022 9:48 AM CDT - 08/30/2022 11:59 PM CDT Hospital Encounter Department of Radiology, [facility] in [place], [place] [address] [place] [phone] Sravanthi Atkins M.D. [address] [place] [address] Nodules Pulmonary Multiple Discharge Disposition: Home or [...] week 06/24/2021 How often do you attend [facility] or religion services? More than 4 times per year 06/24/2021 Do you belong to any clubs o r organizations such as yarsani groups, unions, fraternal or athletic groups, or [...] Answer Date Recorded PHQ-2 Score 1 03/25/2021 [facility] - Occupational Stress Questionnaire Answer Date [...] place to sleep or slept in a correction (including now)? No 06/24/2021 Depression Answer Date [...] Sex Assigned at Female 06/24/2021 3:47 PM MUSIC SPECIALIST Gender Identity Female 01/12/2018 9:08 AM CDT [...] has increased from 5 x 4 mm [id number]. A 12 x 9 mm nodule In the right middle lobe medially (3/346) has increased from 10 x 6 mm [id number]. A 5 mm nodule in the right [...] documented as of this encounter Care Teams Tie Tape Machine Operator Relationship Specialty Start Date End Date Elsewhere, Pcp PCP - General Internal Medicine 02/01/22 documented as of this encounter
--- OUTSIDE RECORDS SUMMARY | 2023-07-29 09:04 | XMS_ITS | Encounter Summary ---
Author Name Unknown Organization [facility] Address [address] [place] [address] Care Team Providers Care Heat And Frost Insulator Helper Name Role Phone Elsewhere, Pcp Primary Care Provider Unavailabl e Reason for Referral * Outpatient (Routine) - Authorized Specialty Diagnoses / Procedures Referred By Farida arreola Referred To Contact Ophthalmology David Pinon Jr., M.D. [address], [place] [address] [facility] Region Referral ID Status Reason Start Date Expiration Date V isits Requested Visits Authorized [id number] Authorized 01/31/2023 01/30/2026 1 1 Reason for Visit * Reason Comments Eye Exam * Appointment Request (Routine) - Closed Specialty Diagnoses / Procedures Referred By Farida arreola Referred To Contact Ophthalmology Diagnoses Eye Examination Normal Referral ID Status Reason Start Date Expiration Date Visits Re quested Visits Authorized [id number] Closed 2022 2023 1 1 Encounter Details Date Type Department Care Team (Latest Contact Info) Description 01/31/2023 10:45 AM CDT Comprehensive Visit Department of Ophthalmology in [place], [place] [address], [place] [address] David Pinon Jr., M.D. [address], [place] [address] Preglaucoma Bilateral (Primary Dx); Sinusitis [...] week 06/24/2021 How often do you attend [facility] or church services? More than 4 times per year 06/24/2021 Do you belong to any clubs o r organizations such as worship groups, unions, fraternal or athletic groups, or [...] Answer Date Recorded PHQ-2 Score 1 03/25/2021 [facility]at ional Health - [...] Sex Assigned at Female 06/24/2021 3:[address] WORKER Gender Identity Female 01/12/2018 9:08 AM [...] documented as of this encounter Care Teams Heat And Frost Insulator Helper Relationship Specialty Start Date End Date Elsewhere, Pcp PCP - General Internal Medicine 02/01/22 documented as of this encounter
--- OUTSIDE RECORDS SUMMARY | 2023-07-29 09:04 | XMS_ITS | Encounter Summary ---
Author Name Unknown Organization [facility] Address [address] [place] [address] Care Team Providers Care Dimensional Integration Engineer Name Role Phone Elsewhere, Pcp Primary Care Provider Unavailabl e Reason for Referral * MRI/CAT/PET Scan (Routine) - Closed Specialty Diagnoses / Procedures Referred By Contac t Referred To Contact Radiology Diagnoses Nodules Pulmonary Multiple Procedures CT Chest without IV Contrast HI CT THORAX WO CNTRST HI 3D WO IND WORKSTATION Sravanthi Atkins M.D. [address] [place] [phone] [facility] Referral ID Status Reason Start Date Expiration Date Visits Re quested Visits Authorized [id number] Closed 08/30/2022 08/30/2023 1 1 Reason for Visit * MRI/CAT/PET Scan (Routine) - Closed Specialty Diagnoses / Procedures Referred By Contac t Referred To Contact Radiology Diagnoses Nodules Pulmonary Multiple Procedures CT Chest without IV Contrast HI CT THORAX WO CNTRST HI 3D WO IND WORKSTATION Sravanthi Atkins M.D. [address] [place] [phone] [facility] Referral ID Status Reason Start Date Expiration Date Visits Re quested Visits Authorized [id number] Closed 08/30/2022 08/30/2023 1 1 Encounter Details Date Type Department Care Team (Latest Contact Info) Description 11/30/2022 8:56 AM CDT - 11/30/2022 11:59 PM CDT Hospital Encounter Department of Radiology, [facility], in [place], [place] 200 [place] [address] Sravanthi Atkins M.D. [address] [place] [address] Nodules Pulmonary Multiple Discharge Disposition: Home or [...] How often do you attend chur or taoist services? More than 4 times per year [...] Answer Date Recorded PHQ-2 Score 1 03/25/2021 [facility] ional [facility] - Occupational [...] Sex Assigned at Female 06/24/2021 3:47 PM AUTOMATIC GLOVE FORMER Gender Identity Female 01/12/2018 9:08 AM CDT [...] x 9 mm on prior series 3, ). Unchanged part solid pulmonary nodule measuring 11 [...] documented as of this encounter Care Teams Dimensional Integration Engineer Relationship Specialty Start Date End Date Elsewhere, Pcp PCP - General Internal Medicine 02/01/22 documented as of this encounter
--- OUTSIDE RECORDS SUMMARY | 2023-07-29 09:04 | XMS_ITS ---
Author Name Unknown Organization [facility] Address [address] [place] [address] Care Team Providers Care Extractor Tender Raw Stock Name Role Phone Unavailable Unavailable Unavailable Surgery Details Not on file Complications Check Surgery Details section. Procedure Estimated Blood Loss Check Surgery Details section. Procedure Findings Check Surgery Details section. Procedure Specimens Taken Check Surgery Details section.
--- OUTSIDE RECORDS SUMMARY | 2023-07-29 09:04 | XMS_ITS | Referral Summary ---
Author Name Unknown Organization [facility] Address [address] [place] [address] Care Team Providers Care Cloth Neutralizer Name Role Phone Elsewhere, Pcp Primary Care Provider Unavailabl e Source Comments Patient records contain information from all sites at [facility]. For routine questions regarding patient records, call [phone] during business hours, M-F 8:00 AM - 5:00 PM Central Time. Record requests for emergency care only can be directed to [phone] at any time.[facility] Allergies Active Allergy Reactions Criticality Noted [...] often do you attend chur ch or shinto services? More than 4 times per year 06/24/2021 Do you belong to any clubs o r organizations such as sikh groups, unions, fraternal or athletic groups, or [...] Answer Date Recorded PHQ-2 Score 1 03/25/2021 [facility] Occupat ional Health - Occupational Stress [...] place to sleep or slept in a usp (including now)? No 06/24/2021 Depression Answer Date [...] Sex Assigned at Female 06/24/2021 3:47 PM ENGRAVER COPPERPLATE Gender Identity Female 01/12/2018 9:08 AM CDT [...] of Treatment Not on file Care Teams Cloth Neutralizer Relationship Specialty Start Date End Date Elsewhere, Pcp PCP - General Internal Medicine 02/01/22
== END 2023-07-29 09:00 | disposition home or self-care (01) ==
PROVIDERS: PCP Nurse Practitioner Family; Visit Provider Nurse Practitioner Family
DX: R07.89 Other chest pain (principal); R10.13 Epigastric pain
CPT/HCPCS: 80053; 82150; 83690; 84484; 85025

== ENCOUNTER 2023-08-03 16:42 | Outpatient (CLI) | payer MEDICARE, SELFPAY ==
--- OUTSIDE RECORDS SUMMARY | 2023-08-03 16:44 | XMS_ITS | Encounter Summary ---
Author Name Unknown Organization [facility] Address [address] [place] [address] Care Team Providers Care Production Welder Name Role Phone Elsewhere, Pcp Primary Care Provider Unavailabl e Reason for Referral * Outpatient (Routine) - Authorized Specialty Diagnoses / Procedures Referred By Farida arreola Referred To Contact Ophthalmology David Pinon Jr., M.D. [address] [address] [facility] Region Referral ID Status Reason Start Date Expiration Date V isits Requested Visits Authorized [id number] Authorized 01/31/2023 01/30/2026 1 1 Reason for Visit * Reason Comments Eye Exam * Appointment Request (Routine) - Closed Specialty Diagnoses / Procedures Referred By Farida arreola Referred To Contact Ophthalmology Diagnoses Eye Examination Normal Referral ID Status Reason Start Date Expiration Date Visits Re quested Visits Authorized [id number] Closed 2022 2023 1 1 Encounter Details Date Type Department Care Team (Latest Contact Info) Description 01/31/2023 10:45 AM CDT Comprehensive Visit Department of Ophthalmology in [place], [place] [address], [place] [address] David Pinon Jr., M.D. [address] [address] Preglaucoma Bilateral (Primary Dx); Sinusitis [...] week 06/24/2021 How often do you attend [facility] or latter day services? More than 4 times per year 06/24/2021 Do you belong to any clubs o r organizations such as gnosticism groups, unions, fraternal or athletic groups, or [...] Answer Date Recorded PHQ-2 Score 1 03/25/2021 [facility] of Occupat ional Health - Occupational [...] place to sleep or slept in a care home (including now)? No 06/24/2021 Depression Answer [...] Sex Assigned at Female 06/24/2021 3:47 PM LEAK INSPECTOR Gender Identity Female 01/12/2018 9:08 AM CDT [...] documented as of this encounter Care Teams Production Welder Relationship Specialty Start Date End Date Elsewhere, Pcp PCP - General Internal Medicine 02/01/22 documented as of this encounter
--- OUTSIDE RECORDS SUMMARY | 2023-08-03 16:44 | XMS_ITS | Encounter Summary ---
Author Name Unknown Organization [facility] Address [address] [place] [address] Care Team Providers Care Photograph Finisher Name Role Phone Elsewhere, Pcp Primary Care Provider Unavailabl e Encounter Details Date Type Department Care Team (Late st Contact Info) Description 01/31/2023 11:30 AM CDT Silent Schedule Department of Ophthalmology in [place], [place] [address] [phone] David Pinon Jr., M.D. [address] [address] Social History Tobacco Use Types [...] often do you attend chur ch or latter-day services? More than 4 times per year 06/24/2021 Do you belong to any clubs o r organizations such as rastafarian groups, unions, fraternal or athletic groups, or [...] Answer Date Recorded PHQ-2 Score 1 03/25/2021 [facility] Answer [...] place to sleep or slept in a fci (including now)? No 06/24/2021 Depression Answer Date [...] Sex Assigned at Female 06/24/2021 3:47 PM ORNAMENT STITCHER Gender Identity Female 01/12/2018 9:08 AM CDT [...] documented as of this encounter Care Teams Photograph Finisher Relationship Specialty Start Date End Date Elsewhere, Pcp PCP - General Internal Medicine 02/01/22 documented as of this encounter
--- OUTSIDE RECORDS SUMMARY | 2023-08-03 16:44 | XMS_ITS ---
Author Name Unknown Organization [facility] Address [address] [place] [address] Care Team Providers Care Infantry Assaultman Name Role Phone Unavailable Unavailable Unavailable Surgery Details Not on file Complications Check Surgery Details section. Procedure Estimated Blood Loss Check Surgery Details section. Procedure Findings Check Surgery Details section. Procedure Specimens Taken Check Surgery Details section.
--- OUTSIDE RECORDS SUMMARY | 2023-08-03 16:44 | XMS_ITS | Clinical Summary ---
Author Name Unknown Organization [facility] Address [address] [place] [address] Care Team Providers Care Jd Edwards Name Role Phone Elsewhere, Pcp Primary Care Provider Unavailabl e Source Comments Patient records contain information from all sites at [facility]. For routine questions regarding patient records, call [phone] during business hours, M-F 8:00 AM - 5:00 PM Central Time. Record requests for emergency care only can be directed to [phone] at any time.[facility] Allergies Active Allergy Reactions Criticality Noted Date [...] often do you attend chur ch or muslim services? More than 4 times per year [...] Answer Date Recorded PHQ-2 Score 1 03/25/2021 [facility] of Occupat ional Health - [...] Sex Assigned at Female 06/24/2021 3:47 PM PSYCHOLOGY TEACHER Gender Identity Female 01/12/2018 9:08 AM CDT [...] Hepatitis C Screening Completed 09/29/2017 Care Teams Jd Edwards Relationship Specialty Start Date End Date Elsewhere, Pcp PCP - General Internal Medicine 02/01/22
--- OUTSIDE RECORDS SUMMARY | 2023-08-03 16:44 | XMS_ITS | Referral Summary ---
Author Name Unknown Organization [facility] Address [address] [place] [address] Care Team Providers Care Winch Truck Operator Name Role Phone Elsewhere, Pcp Primary Care Provider Unavailabl e Source Comments Patient records contain information from all sites at [facility]. For routine questions regarding patient records, call [phone] during business hours, M-F 8:00 AM - 5:00 PM Central Time. Record requests for emergency care only can be directed to [phone] at any time.[facility] Allergies Active Allergy Reactions Criticality Noted [...] often do you attend chur ch or buddhist services? More than 4 times per year 06/24/2021 Do you belong to any clubs o r organizations such as christian groups, unions, fraternal or athletic groups, or [...] Answer Date Recorded PHQ-2 Score 1 03/25/2021 [facility] [place] [facility] Occupat [facility] - Occupational Stress [...] Assigned at Female 06/24/2021 3:47 PM HOME CARE SPECIALIST Gender Identity Female 01/12/2018 9:08 AM [...] of Treatment Not on file Care Teams Winch Truck Operator Relationship Specialty Start Date End Date Elsewhere, Pcp PCP - General Internal Medicine 02/01/22
--- OUTSIDE RECORDS SUMMARY | 2023-08-03 16:45 | XMS_ITS | Encounter Summary ---
Author Name Unknown Organization [facility] Address [address] [place] [id number] Care Team Providers Care Instructional Support Technician Name Role Phone Elsewhere, Pcp Primary Care Provider Unavailabl e Reason for Referral * MRI/CAT/PET Scan (Routine) - Closed Specialty Diagnoses / Procedures Referred By Contac t Referred To Contact Radiology Diagnoses Nodules Pulmonary Multiple Procedures CT Chest without IV Contrast MD CT THORAX WO CNTRST MD 3D WO IND WORKSTATION Sravanthi Atkins M.D. [address] [place] [phone] [facility] Referral ID Status Reason Start Date Expiration Date Visits Re quested Visits Authorized [id number] Closed 08/30/2022 08/30/2023 1 1 Reason for Visit * MRI/CAT/PET Scan (Routine) - Closed Specialty Diagnoses / Procedures Referred By Contac t Referred To Contact Radiology Diagnoses Nodules Pulmonary Multiple Procedures CT Chest without IV Contrast MD CT THORAX WO CNTRST MD 3D WO IND WORKSTATION Sravanthi Atkins M.D. [address] [place] [phone] [facility] Referral ID Status Reason Start Date Expiration Date Visits Re quested Visits Authorized [id number] Closed 08/30/2022 08/30/2023 1 1 Encounter Details Date Type Department Care Team (Latest Contact Info) Description 11/30/2022 8:56 AM CDT - 11/30/2022 11:59 PM CDT Hospital Encounter Department of Radiology, [facility], in [place], [place] 200 [place] [address] Sravanthi Atkins M.D. 200 [place] [address] Nodules Pulmonary Multiple Discharge Disposition: Home or [...] How often do you attend chur or synagogue services? More than 4 times per year 06/24/2021 Do you belong to any clubs o r organizations such as samaritan groups, unions, fraternal or athletic groups, or [...] Answer Date Recorded PHQ-2 Score 1 03/25/2021 [facility]at ional [facility] - [...] Sex Assigned at Female 06/24/2021 3:47 PM HEAT AND VENT AIRCRAFT MECHANIC Gender Identity Female 01/12/2018 9:08 AM CDT [...] documented as of this encounter Care Teams Instructional Support Technician Relationship Specialty Start Date End Date Elsewhere, Pcp PCP - General Internal Medicine 02/01/22 documented as of this encounter
--- OUTSIDE RECORDS SUMMARY | 2023-08-03 16:45 | XMS_ITS | Encounter Summary ---
Author Name Unknown Organization [facility] Address [address] [place] [address] Care Team Providers Care Drop Wire Aliner Name Role Phone Elsewhere, Pcp Primary Care Provider Unavailabl e Reason for Referral * MRI/CAT/PET Scan (Routine) - Closed Specialty Diagnoses / Procedures Referred By Elinaac t Referred To Contact Radiology Diagnoses Nodules Pulmonary Multiple Procedures CT Chest without IV Contrast Sravanthi Atkins M.D. [address] [place] [phone] [facility] Referral ID Status Reason Start Date Expiration Date Visits Re quested Visits Authorized [id number] Closed 02/08/2022 02/08/2023 1 1 Reason for Visit * MRI/CAT/PET Scan (Routine) - Closed Specialty Diagnoses / Procedures Referred By Farida arreola Referred To Contact Radiology Diagnoses Nodules Pulmonary Multiple Procedures CT Chest without IV Contrast Sravanthi Atkins M.D. [address] [place] [phone] [facility] Referral ID Status Reason Start Date Expiration Date Visits Re quested Visits Authorized [id number] Closed 02/08/2022 02/08/2023 1 1 Encounter Details Date Type Department Care Team (Latest Contact Info) Description 08/30/2022 9:48 AM CDT - 08/30/2022 11:59 PM CDT Hospital Encounter Department of Radiology, [facility] in [place], [place] [address] [place] [phone] Sravanthi Atkins M.D. [address] [place] [address] Nodules Pulmonary Multiple Discharge Disposition: Home or [...] week 06/24/2021 How often do you attend [facility] or buddhism services? More than 4 times per year 06/24/2021 Do you belong to any clubs o r organizations such as islam groups, unions, fraternal or athletic groups, or [...] Answer Date Recorded PHQ-2 Score 1 03/25/2021 [facility] - Occupational Stress Questionnaire Answer Date [...] place to sleep or slept in a alf (including now)? No 06/24/2021 Depression Answer Date [...] Sex Assigned at Female 06/24/2021 3:47 PM LOOM SETTER FOURDRINIER Gender Identity Female 01/12/2018 9:08 AM CDT [...] has increased from 5 x 4 mm [id number]. A 12 x 9 mm nodule In the right middle lobe medially (3/346) has increased from 10 x 6 mm [id number]. A 5 mm nodule in the right [...] documented as of this encounter Care Teams Drop Wire Aliner Relationship Specialty Start Date End Date Elsewhere, Pcp PCP - General Internal Medicine 02/01/22 documented as of this encounter
--- OUTSIDE RECORDS SUMMARY | 2023-08-03 16:45 | XMS_ITS | Encounter Summary ---
Author Name Unknown Organization [facility] Address [address] [place] [address] Care Team Providers Care Horse Trainer Name Role Phone Elsewhere, Pcp Primary Care Provider Unavailabl e Reason for Visit * Reason Comments Med Refill Encounter Details Date Type Department Care Team (Late st Contact Info) Description 07/03/2022 Refill Department of Family Medicine, [facility], in [place], [place] [address] [place] [address] Navi Nguyen, Malathi-Trae., P.A. [address] [place] [address] Med Refill Social History Tobacco [...] often do you attend chur ch or temple services? More than 4 times per year 06/24/2021 Do you belong to any clubs o r organizations such as latter day groups, unions, fraternal or athletic groups, or [...] Answer Date Recorded PHQ-2 Score 1 03/25/2021 [facility] Questionnaire Answer Date [...] place to sleep or slept in a halfway (including now)? No 06/24/2021 Depression Answer Date [...] Sex Assigned at Female 06/24/2021 3:47 PM TELEVISION MAINTENANCE MAN Gender Identity Female 01/12/2018 9:08 AM CDT Sexual Orientation Straight 01/12/2018 9: 08 AM CDT documented as of this encounter Plan of Treatment Not on file documented as of this encounter Visit Diagnoses Not on filedocumented in this encounter Additional Health Concerns Assessment Noted Time PHQ-9 Depression Total Score: 7 03/25/20 21 1:02 PM CDT documented as of this encounter Care Teams Horse Trainer Relationship Specialty Start Date End Date Elsewhere, Pcp PCP - General Internal Medicine 02/01/22 documented as of this encounter
--- OUTSIDE RECORDS SUMMARY | 2023-08-03 16:45 | XMS_ITS | Clinical Summary ---
Author Name Unknown Organization [facility] Address [place], [place] [address] Care Team Providers Care Guest Services Ambassador Name Role Phone Tiffany Fowler NP Primary Care Provider [phone]- [phone] Allergies No known active allergies Medications Medication [...] Department Care Team Description 07/14/2023 Lab Requisition [facility] [phone] Rashad Sanchez MD 07/03/2023 10:34 PM DIRECTOR COLLEGE - 07/03/2023 11:30 PM DIRECTOR COLLEGE Emergency [address] [address] [place] Gastroesophageal reflux disease, unspecified [...] Comments Blood Pressure 122/84 07/03/2023 11:20 PM DIRECTOR COLLEGE Pulse 71 07/03/2023 11:20 PM DIRECTOR COLLEGE Temperature 36.6 ??C (97.8 ??F) 07/03/2023 10:[address] Respiratory Rate 16 07/03/2023 10:39 PM DIRECTOR COLLEGE Oxygen Saturation 94% 07/03/2023 11:20 PM DIRECTOR COLLEGE Inhaled Oxygen Concentration - - Weight 86.4 kg (190 lb 7.6 oz) 07/03/2023 10:39 PM DIRECTOR COLLEGE Height 162.6 cm (5' 4) 07/03/2023 10:39 PM DIRECTOR COLLEGE Body Mass Index 32.7 07/03/2023 10:39 PM DIRECTOR COLLEGE Plan of Treatment Health Maintenance Due Date [...] TRACKING EVENT Routine 07/14/2023 9: 10 AM DIRECTOR COLLEGE PATH TISSUE EXAM Routine 07/14/2023 9:10 AM DIRECTOR COLLEGE from Last 3 Months Results * LAB TRACKING EVENT (07/14/2023 9:10 AM DIRECTOR COLLEGE) Other (Other) Client Collect / Unknown 07/14/2023 9:10 AM DIRECTOR COLLEGE 07/14/2023 9:00 PM DIRECTOR COLLEGE Rashad Sanchez MD LAB BILL ONLY [facility] [address] [place] [address], * PATH TISSUE EXAM (07/14/2023 9:10 AM DIRECTOR COLLEGE) Case Report Pathology Report ?Case: [id number] ? Authorizing Provider: ??Rashad Sanchez MD ?Collected: ? 07/14/2023 0910 ? Ordering Location: ? [facility] ?Received: ?07/14/2023 2108 ? Pathologist: ? [place], Stiven Boyd ? IV, MD ? Specimens: ?? A) - Stomach Biopsy ? B) - Distal Esophagus Biopsy ? C) - Mid Esophagus Biopsy ? D) - Cecal Polyp ? E) - Cecal Polyp ? F) - Ascending Colon Polyp ? 07/15/2023 11:03 AM DIRECTOR COLLEGE [facility] Final Diagnosis A) STOMACH, [...] ?? c. Retrieval: Complete 07/15/2023 11:03 AM DIRECTOR COLLEGE [facility] Clinical Information Ms. Castillo is a 67 y.o. who presents with dysphagia, as well as reflux symptoms. EGD findings include: -Irregular Z-line at 32 cm - Small hiatus hernia -Antral erythema -Normal duodenum Colonoscopy, done for screening shows: -1, 3 mm appendiceal orifice polyp -1, 2 mm cecal polyp -1, 3 mm ascending polyp 07/15/2023 11:03 AM DIRECTOR COLLEGE [facility] Gross Description A) Received [...] Napoles 07/14/2023 9:10 PM 07/15/2023 11:03 AM DIRECTOR COLLEGE [facility] Microscopic Description The final diagnosis is based on microscopic examination of appropriate sections of all specimens. 07/15/2023 11:03 AM DIRECTOR COLLEGE [facility] Additional [facility] - [address] [address] 07/15/2023 11:03 AM DIRECTOR COLLEGE [facility] Other (Stomach Biopsy) 07/14/2023 9:10 AM DIRECTOR COLLEGE 07/14/2023 9:08 PM DIRECTOR COLLEGE Specimen (specimen) (Distal Esophagus Biopsy) 07/14/2023 9:10 AM DIRECTOR COLLEGE 07/14/2023 9:08 PM DIRECTOR COLLEGE Specimen (specimen) (Mid Esophagus Biopsy) 07/14/2023 9:10 AM DIRECTOR COLLEGE 07/14/2023 9:08 PM DIRECTOR COLLEGE Specimen (specimen) (Cecal Polyp) 07/14/2023 9:10 AM DIRECTOR COLLEGE 07/14/2023 9:08 PM DIRECTOR COLLEGE Specimen (specimen) (Cecal Polyp) 07/14/2023 9:10 AM DIRECTOR COLLEGE 07/14/2023 9:08 PM DIRECTOR COLLEGE Specimen (specimen) (Ascending Colon Polyp) 07/14/2023 9:10 AM DIRECTOR COLLEGE 07/14/2023 9:08 PM DIRECTOR COLLEGE Rashad Sanchez MD PATHOLOGY/CYTOLOGY [facility] LAB[facility] [address] [place] [phone], from Last 3 Months Care Teams Guest Services Ambassador Relationship Specialty Start Date End Date Tiffany Fowler NP [address] [facility] [place] [address] PCP - General Emergency Medicine 07/03/23
--- NOTE | 2023-08-03 17:00 | US_ITS ---
Final Report Patient: SINDY HANKINS Facility:?[facility] Patient ID:?[id number] Site Patient ID:?[id number] Site :?[id number] Study:?US Abdomen RUQ-08/03/2023 8:39:29 AM Ordering Physician:JAMESON JOVEL Final Report: INDICATION: Right upper quadrant and chest pain COMPARISON: 06/16/2021 TECHNIQUE: Real time arguello scale imaging and color Doppler analysis was performed of the right upper quadrant. FINDINGS: Simple circumscribed cyst within the right hepatic lobe measures 3.4 x 3.6 x 4.0 cm. No suspicious intrahepatic mass. The liver measures 16.7 cm additional smaller cyst within the left hepatic lobe measuring 7 x 10 x 8 millimeters. There is a normal appearance of the hepatic IVC and proximal abdominal aorta. There is no evidence of ascites. The gallbladder is of normal size and there is an echogenic focus associated with the non dependent wall measuring 8 x 7 x 9 millimeters. Layering sludge is also present. The gallbladder wall measures 1 mm in thickness. The common bile duct is of normal size and measures 5.2 mm in diameter at the level of the kymberly hepatis. The pancreas appears normal. There is a hyperechoic focus within the right kidney measuring 8 millimeters x 5 millimeters x 10 millimeters. 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 No hydronephrosis. The right kidney measures 11.8 cm in length. IMPRESSION: Simple intrahepatic cysts. No suspicious hepatic mass or ascites. 9 millimeter gallbladder polyp. Layering sludge in the gallbladder lumen. Surgical consultation suggested. Dictated by Ascencion Borges MD @ 08/04/2023 8:46:05 AM (Electronic Signature)
== END 2023-08-03 16:43 | disposition home or self-care (01) ==
LOC: US 16:43
PROVIDERS: PCP Nurse Practitioner Family; Visit Provider Nurse Practitioner Family
DX: R07.89 Other chest pain (principal); K76.89 Other specified diseases of liver; K82.4 Cholesterolosis of gallbladder; R10.11 Right upper quadrant pain
CPT/HCPCS: 76705

== ENCOUNTER 2023-08-18 07:03 | Day surgery (SDC) | payer MEDICARE, SELFPAY ==
[2023-08-18] VITALS (12 sets, daily range): BP systolic 113–151; BP diastolic 69–88; PULSE 58–68; RESP 16; TEMP 36.6–36.8; O2SAT 92–100; BMI 32.8
[2023-08-18] MEDS: SODIUM CHLORIDE 0.9 % (FLUSH) 10 ML SYRINGE IVF (07:29)
[2023-08-18] MEDS: LACTATED RINGERS 1000 ML 1,000 ML 100 ML IV (07:29)
--- NOTE | 2023-08-18 08:27 | W.PM.H&PU ---
History & Physical Update History & Physical Update H&P Reviewed and patient assessed: No changes noted
[2023-08-18] MEDS: CLINDAMYCIN 900 MG/50 ML-D5W IVPB (09:01)
[2023-08-18] MEDS: BUPIVACAINE 0.5% 30 ML INJECTION (09:44)
--- NOTE | 2023-08-18 09:54 | PM.GSPRC ---
Operative Note Date of procedure: 08/18/23 Pre-op diagnosis: Biliary colic Post-op diagnosis: Same Type of Procedure: Laparoscopic cholecystectomy Indications: Patient is a 67-year-old female who presented to clinic with complaints and clinical workup consistent with biliary colic. Risks and benefits of operative intervention were discussed at length with the patient. Risks included but was not limited to: Bleeding, infection, risk of damage to surrounding structures, possible need for additional procedures, possible need to convert to an open operation and postoperative complications such as pneumonia, pulmonary emboli or DC. All questions and concerns were addressed with the patient agreeing to proceed. Procedure Description: After discussing the risks and benefits of the procedure, the patient signed informed consent.? The operative site was marked and the patient was brought to the operating room and placed on the operating table in supine position.? Care was taken to pad the patient's pressure points.?? The patient was then intubated by anesthesia.?? The operative site was then prepped and draped in the usual sterile fashion.? A time-out was then performed. Entrance to the abdomen was gained via a 5 mm Visiport in the left upper quadrant. The abdomen was insufflated and briefly surveyed for signs of injury. There was none. 11 mm umbilical port was placed as well as 2 working ports along the right costal margin. Patient was then placed in reverse Trendelenburg position with the right side up. The liver was very fatty in appearance. The gallbladder fundus was grasped and retracted cephalad. The infundibulum was grasped. A combination of hook cautery and blunt dissection was used to carefully dissect out the cystic duct and artery until they could clearly be seen entering the gallbladder without any intervening structures. The gallbladder was dissected off the cystic plate to achieve the critical view. Once this was achieved the cystic duct and artery were each clipped with 2 clips proximally and 1 clip distally and transected with the scissors. The gallbladder was then taken off of the liver bed. A small tear of the liver was appreciated just medial to the gallbladder fossa. No underlying hematoma or injury to the parenchyma identified. This likely occurred with retraction. This was evaluated under decreased insufflation with no evidence of active bleeding. The gallbladder was then removed from the abdomen using an Endo-Catch bag. The gallbladder bed was again surveyed for hemostasis, which was excellent. The umbilical port fascia was closed with 0 Vicryl via the Jeremi-Bao. All other ports removed under direct visualization. The skin was closed with absorbable subcuticular suture. Sterile dressings were applied. Instrument sponge and needle counts were correct at the end of the case. The patient was then woken and transferred to the PACU in stable condition. Findings: Cholelithiasis. Anesthesia: GETA Surgeon: Sarita Alvarez MD Estimated blood loss (mL): 5 Specimen: Gallbladder Condition: stable Disposition: PACU
--- NOTE | 2023-08-18 10:06 | W.ANESCHARGE ---
Anesthesia Charges Start Date/Time Anesthesia Start Date: 08/18/23 Anesthesia Start Time: 08:47 Stop Date/Time Anesthesia Stop Date: 08/18/23 Anesthesia Stop Time: 10:02
--- NOTE | 2023-08-18 12:36 | SUR.PHASEII ---
right upper site steri strip dropped. site was quite wet underneath, incision intact. replaced steri strips
== END 2023-08-18 12:40 | disposition home or self-care (01) ==
PROVIDERS: PCP Nurse Practitioner Family; Visit Provider Surgery
PROC: 0FT44ZZ Resection of Gallbladder, Percutaneous Endoscopic Approach (ICD-10-PCS; CPT 47562; principal; 2023-08-18 08:30)
DX: K80.20 Calculus of gallbladder without cholecystitis without obstruction (principal)
CPT/HCPCS: 47562; 00790; 88304; J0665; J0736; J1100; J1630; J1885; J2405; J2704; J3010; J3490; J7120

== ENCOUNTER 2023-08-30 16:34 | Outpatient (CLI) | payer MEDICARE, SELFPAY | END 2023-08-30 16:35 | disposition home or self-care (01) | PROVIDERS: PCP Nurse Practitioner Family; Visit Provider Nurse Practitioner Family | DX: R00.2 Palpitations (principal); R19.7 Diarrhea, unspecified; E55.9 Vitamin D deficiency, unspecified; E78.5 Hyperlipidemia, unspecified; R53.83 Other fatigue; E03.9 Hypothyroidism, unspecified; I10 Essential (primary) hypertension | CPT/HCPCS: 80053; 80061; 82306; 83735; 84443; 84484; 85025; 87493 ==

== ENCOUNTER 2023-09-07 09:50 | Outpatient (CLI) | payer MEDICARE, SELFPAY | END 2023-09-07 09:51 | disposition home or self-care (01) | LOC: RAD 09:51 | PROVIDERS: PCP Nurse Practitioner Family; Visit Provider Nurse Practitioner Family | DX: R00.2 Palpitations (principal) | CPT/HCPCS: 93225; 93226; 93306 ==

== ENCOUNTER 2023-11-04 13:16 | Outpatient (CLI) | payer MEDICARE, SELFPAY ==
--- OUTSIDE RECORDS SUMMARY | 2023-11-04 13:18 | XMS_ITS | Clinical Summary ---
Author Organization [facility] Address [address] [place] [address] Care Team Providers Care Mine Motor Operator Name Role Phone Elsewhere, Pcp Primary Care Provider Unavailabl e Source Comments Patient records contain information from all sites at [facility]. For routine questions regarding patient records, call [phone] during business hours, M-F 8:00 AM - 5:00 PM Central Time. Record requests for emergency care only can be directed to [phone] at any time.[facility] Allergies Active Allergy Reactions Criticality Noted Date [...] mouth every 6 (six) hours as needed. 08/27/2014 Active ibuprofen (for_ADVIL,MOTRIN) 200 mg tablet Take 1-2 tablets by mouth as needed. 01/03/2012 Active ipratropium-albute rol (DUO-NEB) 0.5-2.5 mg/3 [...] mg total) by mouth daily. 90 tablet 04/07/2022 Active levothyroxine (SYNTHROID, LEVOTHROID) 75 mcg tablet Take 1 tablet (75 mcg total) by mouth daily with breakfast. 90 tablet 04/07/2022 Active omeprazole (PriLOSEC) [address] capsule Take 1 capsule (40 mg total) by mouth every morning before breakfast. 90 capsule 04/07/2022 Active sertraline (ZOLOFT) 100 mg tablet [...] Vaccine Immunization 05/26/2017 Hypertension Chronic 06/09/2012 021 Encounters Date Type Department Care Team Description 09/21/2023 Refill Department of Family Medicine, [facility], in [address] [phone] Navi Nguyen, PMarkA.-Trae., P.A. Med Refill from Last 3 Months Immunizations Name Administration Dates Next Due DTP 03/21/1962,06/13/1956 DTaP (Infanrix, Tripedia) 03/12/2009 HepB, Unspecified 10/06/1992,05/15/1992,04/04/19 92 Influenza (IM) Preservative Free 05/08/2013 Influenza, Seasonal, Injectable 04/30/2008 Influenza, Unspecified 03/12/2009,05/31/2007 OPV 05/09/1973,06/13/1957,06/13/1956 PPSV23 01/19/2021,04/23/2009 SARS-COV-2 (COVID-19) - PFIZ ER (Discontinued)(12 [...] How often do you attend chur or jewish services? More than 4 times per year 06/24/2021 Do you belong to any clubs o r organizations such as hoahaoism groups, unions, fraternal or athletic groups, or [...] Score 1 03/25/2021 [facility] - Occupational [...] Assigned at Female 06/24/2021 3:47 PM BODY ARTIST Gender Identity Female 01/12/2018 9:08 AM CDT [...] ure Check / Re-check 1955 Zoster Vaccines (2 of 2) 01/25/2017 11/30/2016 Colonoscopy 07/14/2017 07/14/2012 (Perf ormed elsewhere), 05/14/2008, 05/14/2008 Colorectal Cancer Surveillance 07/14/2017 Mammogram 01/16/2021 [...] 05/15/1992, 04/04/1992 Hepatitis C Screening Completed 09/29/2017 Procedures Procedure Name Priority Date/Time Associated Diagnosis Comments LIPID PANEL, S Routine 12/18/2020 9:24 AM CDT Hypertension Essential Primary Hyperlipidemia Hypothyroidism Insomnia THYROID-STIMULATING HORMONE-SENSITIVE (S-TSH) Routine 12/18/2020 9:24 AM CDT Hypertension Essential Primary Hyperlipidemia Hypothyroidism Insomnia COMPREHENSIVE METABOLIC PANEL, S/P Routine 12/18/2020 9:24 AM CDT Hypertension Essential Primary Hyperlipidemia Hypothyroidism Insomnia BI BREAST SCREENING BILATERAL WITH TOMOSYNTHESIS RAD - Routine (most inpatients and all outpatients) 01/17/2020 8:32 AM CDT Screening Mammogram Average Risk Patient HCV AB SCRN W/REFLEX TO HCV PCR, S Routine 09/29/2017 10:53 AM CDT Screening Test Laboratory from Last 3 Months or Most Recently Relevant to Health Maintenance Results * (ABNORMAL) Lipid Panel (12/18/2020 9:24 AM CDT) Pathologist [facility] Cholesterol, Total 224(H) mg/dL 2020 11:14 AM CDT [facility] Comment: ----REFERENCE VALUE---- Desirable: < 200 Borderline high: 200 - 239 High: > or = 240 Triglycerides 147 mg/dL 12/18/2020 11:14 AM CDT [facility] Comment: ----REFERENCE VALUE---- Normal: <150 Borderline high: 150-199 High: 200-499 Very high: > or =500 Cholesterol, HDL 41(L) >=50 mg/dL 12/19/19 11:14 AM CDT [facility] Calculated LDL 154(H) mg/dL 12/18/2020 11:14 AM CDT [facility] Comment: ----REFERENCE VALUE---- Desirable: <100 Above Desirable: 100-129 Borderline high: 130-159 High: 160-189 Very high: > or =190 Cholesterol, Non-HDL, Calculated 183(H) mg/dL 12/18/2020 11:14 AM CDT [facility] Comment: ----REFERENCE VALUE---- Desirable: <130 Above Desirable: 130-159 Borderline high: 160-189 High: 190-219 Very high: > or =220 Blood (Blood, Venous) 12/18/2020 9:24 AM CDT 12/18/2020 10:29 AM CDT Navi Nguyen P.A.-C., P.A. LAB BLOO D ADD-ON Performing Organization Address City/[facility]/ZIP Co de Phone Number [facility] [address] [place] [address], [facility] OWAT [facility] [place] [address] [place] [address] * S-TSH (Thyroid-Stimulating Hormone - Sensitive) (12/18/2020 9:24 AM CDT) TSH, Sensitive 1.2 0.3 - 4.2 mIU/L 12/18/2020 11:04 AM CDT [facility] Blood (Blood, Venous) 12/18/2020 9:24 AM CDT 12/18/2020 10:30 AM CDT Navi Nguyen P.A.-C., P.A. LAB BLOO D ADD-ON [facility] [address] [place], [place] [address], [place] [address], [place] OWAT [facility] [place] [address] [place] [address] * (ABNORMAL) Comprehensive Metabolic Panel (12/18/2020 9:24 AM CDT) Potassium, P 4.0 3.6 - 5.2 mmol/L 12/18/2020 11:14 AM CDT [facility] Sodium, P 140 135 - 145 mmol/L 12/18/2020 11:14 AM CDT [facility] Chloride, P 101 98 - 107 mmol/L 12/18/2020 11:14 AM CDT [facility] Bicarbonate, P 30(H) 22 - 29 mmol/L 12/18/2020 11:14 AM CDT [facility] Anion Gap, P 9 7 - 15 12/18/2020 11:14 AM CDT [facility] BUN (Blood Urea Nitrogen), P 20 6 - 21 mg/dL 12/18/2020 11:14 AM CDT [facility] Creatinine 0.82 0.59 - 1.04 mg/dL 12/18/2020 11:14 AM CDT [facility] eGFR-Black/ 87 >=60 mL/min/BS A 12/18/2020 11:14 AM CDT [facility] Comment: ----ADDITIONAL INFORMATION---- Estimated GFR calculated using the 2009 CKD_EPI creatinine equation. eGFR Non-Black/ 75 >=60 mL/min/BS A 12/18/2020 11:14 AM CDT [facility] Comment: ----ADDITIONAL INFORMATION---- Estimated GFR calculated using the 2009 CKD_EPI creatinine equation. Calcium, Total, P 9.5 8.8 - 10.2 mg/dL 12/18/2020 11:14 AM CDT [facility] Glucose, P 89 70 - 140 mg/dL 12/18/2020 11:14 AM CDT [facility] Protein, Total, P 6.7 6.3 - 7.9 g/dL 12/18/2020 11:14 AM CDT [facility] Albumin, P 4.3 3.5 - 5.0 g/dL 12/18/2020 11:14 AM CDT [facility] Aspartate Aminotransferase (AST), P 40 8 - 43 U/L 12/18/2020 11:14 AM CDT [facility] Alkaline Phosphatase, P 64 35 - 104 U/L 12/18/2020 11:14 AM CDT [facility] Alanine Aminotransferase (ALT), P 16 7 - 45 U/L 12/18/2020 11:14 AM CDT [facility] Bilirubin, Total, P 0.4 <=1.2 mg/dL 12/18/2020 11:14 AM CDT [facility] Blood (Blood, Venous) 12/18/2020 9:24 AM CDT 12/18/2020 10:29 AM CDT Navi Nguyen P.A.-C., PKarli LAB BLOO D ADD-ON [facility] [address] [place] [address], [facility] OWAT [facility] [place] [address] [place] [address] * BI Breast Screening Bilateral with Tomosynthesis (01/17/2020 8:32 AM CDT) Anatomical Region Laterality Modality Breast, Breast Imaging RST L OS, Breast Imaging ARZ LOS, Breast Imaging FLA LOS Bilateral Mammography 01/17/2020 8:51 AM CDT Impressions 01/17/2020 8:52 AM CDT Negative. RECOMMENDATION: ??Annual Screening Mammogram ASSESSMENT: ??BI-RADS: 1: Negative. Narrative 01/17/2020 8:52 AM CDT EXAM: ??BI BREAST SCREENING BILATERAL WITH TOMOSYNTHESIS Current study was evaluated with a Computer Aided Detection (CAD) system. INDICATION: ??Screening mammogram. COMPARISON: ??Prior exam(s) were available and reviewed for comparison. DENSITY: ??c. The breast(s) are heterogeneously dense, which may obscure small masses. FINDINGS: ??No mammographic findings of malignancy. Procedure Note Bernabe Wilks M.D. - 01/17/2020 EXAM: BI BREAST SCREENING BILATERAL WITH TOMOSYNTHESIS Current study was evaluated with a Computer Aided Detection (CAD) system. INDICATION: Screening mammogram. COMPARISON: Prior exam(s) were available and reviewed for comparison. DENSITY: c. The breast(s) are heterogeneously dense, which may obscuresmall masses. FINDINGS: No mammographic findings of malignancy. IMPRESSION: Negative. RECOMMENDATION: Annual Screening Mammogram ASSESSMENT: BI-RADS: 1: Negative. Agustin Stuart M.D. IMG BI PROCEDURES * HCV Ab Scrn w/Reflex to HCV PCR (09/29/2017 10:53 AM CDT) HCV Ab Screen, S Negative Negative 09/30/2017 8:33 AM CDT [facility] Comment:Levicr-fs-gbbtxg rat io is <1.00. Blood (Blood, Venous) 09/29/2017 10:53 AM CDT 09/30/2017 7:24 AM CDT Agustin Stuart M.D. LAB MICROBIOLOGY - B LOOD ORDERABLES [facility] [address] [place] [address] from Last 3 Months or Most Recently Relevant to Health Maintenance Care Teams Mine Motor Operator Relationship Specialty Start Date End Date Elsewhere, Pcp PCP - General Internal Medicine 02/01/22
--- OUTSIDE RECORDS SUMMARY | 2023-11-04 13:18 | XMS_ITS | Referral Summary ---
Author Organization [facility] Address [address] [place] [address] Care Team Providers Care Device Sales Consultant Name Role Phone Elsewhere, Pcp Primary Care Provider Unavailabl e Source Comments Patient records contain information from all sites at [facility]. For routine questions regarding patient records, call [phone] during business hours, M-F 8:00 AM - 5:00 PM Central Time. Record requests for emergency care only can be directed to [phone] at any time.[facility] Encounters Date Type Department Care Team Description 09/21/2023 Refill Department of Family Medicine, [facility], in [place] [address] [place] [address] Navi Nguyen, PLoulou.-Trae., P.A. Med Refill from Last 3 Months Allergies Active Allergy Reactions Criticality Noted Date [...] How often do you attend [facility] or protestant services? More than 4 times per year 06/24/2021 Do you belong to any clubs o r organizations such as mandaeism groups, unions, fraternal or athletic groups, or [...] Answer Date Recorded PHQ-2 Score 1 03/25/2021 [facility] - Occupational Stress Questionnaire Answer Date Recorded [...] Sex Assigned at Female 06/24/2021 3:47 PM FIELD CAPTAIN Gender Identity Female 01/12/2018 9:08 AM CDT [...] CDT Plan of Treatment Not on file Procedures Procedure Name Priority Date/Time Associated Diagnosis [...] (ABNORMAL) Lipid Panel (12/18/2020 9:24 AM CDT) Cholesterol, Total 224(H) mg/dL 2020 11:14 AM [...] LAB BLOO D ADD-ON Performing Organization Address [facility] Co de Phone Number [facility] [address] [address], [facility] OWAT [facility] [place] [address] [place] [address] * S-TSH (Thyroid-Stimulating Hormone - Sensitive) (12/18/2020 9:24 AM CDT) TSH, Sensitive 1.2 0.3 - 4.2 mIU/L 12/18/2020 11:04 AM CDT [facility] Blood (Blood, Venous) 12/18/2020 9:24 AM CDT 12/18/2020 10:30 AM CDT Navi Nguyen P.A.-C., P.A. LAB BLOO D ADD-ON Performing Organization Address [facility] Co de Phone Number [facility] [address] [place] [address], [facility] [place] [address] [place] [address] * (ABNORMAL) Comprehensive Metabolic Panel (12/18/2020 9:24 [...] Nguyen P.A.-C., P.A. LAB BLOO D ADD-ON [facility] [address] [place] [address], [facility] [place] [address] [place] [address] * BI Breast Screening Bilateral with Tomosynthesis [...] S Negative Negative 09/30/2017 8:33 AM CDT [facility] Comment:Pbnurg-oi-cnldwa rat io is <1.00. Blood (Blood, Venous) 09/29/2017 10:53 AM CDT 09/30/2017 7:24 AM CDT Agustin Stuart M.D. LAB MICROBIOLOGY - B LOOD ORDERABLES [facility] [address] [place] [address] from Last 3 Months or Most Recently Relevant to Health Maintenance Care Teams Device Sales Consultant Relationship Specialty Start Date End Date Elsewhere, Pcp PCP - General Internal Medicine 02/01/22
--- OUTSIDE RECORDS SUMMARY | 2023-11-04 13:18 | XMS_ITS ---
Author Organization [facility] Address [address] [place] [address] Care Team Providers Care Grain Sampler Name Role Phone Unavailable Unavailable Unavailable Surgery Details Not on file Complications Check Surgery Details section. Procedure Estimated Blood Loss Check Surgery Details section. Procedure Findings Check Surgery Details section. Procedure Specimens Taken Check Surgery Details section.
--- OUTSIDE RECORDS SUMMARY | 2023-11-04 13:18 | XMS_ITS | Clinical Summary ---
Author Organization [facility] Address [place], [place] [address] Care Team Providers Care Caramel Cutter Helper Name Role Phone Lilly Fowler NP Primary Care Provider [phone]- [phone] Allergies No known active allergies Medications Medication Sig Dispensed Refills Start Date End Date Status Levothyroxine 75 mcg cap Take by mouth. Active omeprazole (PRILOSEC) 40 mg Delayed-Release capsuleIndications: heartburn Take 40 mg by mouth once daily. Indications: HEARTBURN Active metoprolol (LOPRESSOR) 25 mg tabletIndications:h ypertension Take 25 mg by mouth 2 times daily. Indications: HYPERTENSION Active hydrochlorothiazide (HCTZ) 25 mg tabletIndications:e angela Take 25 mg by mouth once daily. Indications: EDEMA Active predniSONE (DELTASONE) 10 mg tablet Take [...] if needed for muscle spasms. 30 tablet 03/27/2018 Active famotidine (PEPCID) 20 mg tabletIndications:G astroesophageal reflux disease, unspecified whether esophagitis present Take 1 Tablet (20 mg) by mouth 2 times daily if needed for GI Upset or Heartburn. 60 Tablet 07/03/2023 Active Active Problems Problem Noted Date Diagnosed Date Personal history of colonic polyps 07/13/2012 Encounters Date Type Department Care Team Description 09/23/2023 10:43 AM CDT - 09/23/2023 11:59 PM CDT Hospital Encounter [facility] [address] [place] [address] Farrah Fowler, Lilly Trujillo, MARVIN 09/23/[address] [facility] [address] [place] [address] Brandy Gates 1 scan: (1-Ord) Holter Report ([id number]) 09/07/2023 10:00 AM CDT Ancillary Procedure [address] [address] 08/18/2023 Lab Requisition [facility] [phone] Sarita Alvarez MD from Last 3 Months Social History Tobacco [...] Comments Blood Pressure 122/84 07/03/2023 11:20 PM OCEAN FORWARDER Pulse 71 07/03/2023 11:20 PM OCEAN FORWARDER Temperature 36.6 ??C (97.8 ??F) 07/03/2023 10:[address] Respiratory Rate 16 07/03/2023 10:39 PM OCEAN FORWARDER Oxygen Saturation 94% 07/03/2023 11:20 PM OCEAN FORWARDER Inhaled Oxygen Concentration - - Weight 86.4 kg (190 lb 7.6 oz) 07/03/2023 10:39 PM OCEAN FORWARDER Height 162.6 cm (5' 4) 07/03/2023 10:39 PM OCEAN FORWARDER Body Mass Index 32.7 07/03/2023 10:39 PM OCEAN FORWARDER Plan of Treatment Health Maintenance Due Date [...] 1 - PCV) 08/23/2020 COVID-19 vaccine series (4 - 2022- season) 2023 05/09/2021, 10/07/2020, 09/03/2020 Influenza for age 65+ 02/12/2024 Procedures Procedure Name Priority Date/Time Associated Diagnosis Comments HOLTER MONITOR 48 HOURS Routine 09/23/2023 12:00 AM CDT Palpitations ECHO TTE COMPLETE WO CONTRAST Routine 09/07/2023 10:31 AM CDT Palpitations LAB TRACKING EVENT Routine 08/18/2023 12 :00 PM OCEAN FORWARDER PATH TISSUE EXAM Routine 08/18/2023 9:36 AM OCEAN FORWARDER SCAN-COLONOSCOPY 05/14/2008 12:0 0 AM OCEAN FORWARDER from Last 3 Months or Most Recently Relevant to Health Maintenance Results * HOLTER MONITOR 48 HOURS (09/23/2023 12:00 AM CDT) Lilyl Fowler NP CARDIAC SERVICES O RD * ECHO TTE COMPLETE WO CONTRAST (09/07/2023 10:31 AM CDT) AORTIC VALVE MEAN PG 5 mmHg EJECTION FRACTION 68 % PEAK TR VELOCITY 2.2 m/s LVEDD 3.7 cm Anatomical Region Laterality Modality Ultrasound 09/07/2023 10:0 7 AM CDT Narrative 09/07/2023 11:38 AM CDT ECHOCARDIOGRAM SINDY CASTILLO ? Accession#: ?? [id number] : ?1955 68 years Study Date: ?? 09/07/2023 10:07:05 AM Gender: F ?BP: ? 137/80 mmHg Height: 163.00 cm ?BSA: ?1.90 m? ? ? Weight: 84.00 kg ? Tech: ? MJS ? Referring MD: LILLY FOWLER Site: ? [facility] Reading Location: Mobile OP Patient Location: Outpatient. Procedure: 2D, Color Doppler and Spectral Doppler. Indication for study: Palpitations Cardiac Rhythm: Normal sinus.Study quality: Good. Final Impressions: 1. Normal left ventricular size, normal wall thickness, normal global systolic function, calculated EF of 68 %. 2. Right ventricular cavity size is normal, global systolic RV function is normal. Comparison There are no prior studies on this patient for comparison purposes. Chamber Sizes and Function Normal left ventricular size, normal wall thickness, normal global systolic function, calculated EF of 68 %. Left atrial size is normal. Left atrial pressure is normal. Right ventricular cavity size is normal, global systolic RV function is normal. The right atrium is normal. Right atrial area is 13 cm? ? ?. The pulmonary artery is of normal size and origin. The sinus of Valsalva is normal sized. The ascending aorta is normal sized. Valves, RV Pressures and Diastolic Function The aortic valve is normal in structure and trileaflet, no stenosis and mild regurgitation. The mitral valve is normal in structure, trace mitral regurgitation. Normal diastolic function. The tricuspid valve is normal in structure. Tricuspid regurgitation is mild regurgitation. The tricuspid regurgitant velocity is 2.2 m/s, the estimated right ventricular systolic pressure is 19 mmHg plus right atrial pressure. There is normal estimated pulmonary pressure by tricuspid regurgitation velocity and right atrial pressure. The pulmonic valve is normal. No pulmonary regurgitation. TTE images do not appear adequate for transcather intervention with patient supine. Masses, Effusion, Shunts There is no pericardial effusion. The inferior vena cava is normal sized, respiratory size variation greater than 50%. No left to right shunting was detected by limited color flow Doppler interrogation of the interatrial septum. MEASUREMENTS AND CALCULATIONS 2-D Measurements and LV Function: LVID (d) 3.7 cm Planimetered EF 68 % LVID (s) 2.5 cm LV FS% (2D) ? 31 % IVS (d) ??1.0 cm LVOT diameter ?? 2.1 cm LVPW (d) 1.0 cm HR ?61 bpm Ao Sinus 3.6 cm LA Vol index ?23 ml/m2 Asc Ao ?? 3.9 cm RA area ? 13 cm?RV Max 4C (d) ?? 3.8 cm Diastology: Mitral ?Tissue Doppler E Peak 0.9 m/s ??e', Septum ? 0.08 m/s A Peak 0.8 m/s ??e', Lateral ?0.11 m/s E/A ?1.1 ?E/e' Average ?? 9.25 DT ? 211 msec Aortic Valve: Vmax ? 1.4 m/s ??VANESA (V) ?? 3.16 cm? ? ? VTI ?0.37 m ?? VANESA (I) ?? 2.99 cm? ? ? LVOT V max 1.3 m/s ??Max PG ?8 mmHg LVOT VTI ?? 0.32 m ?? Mean PG ?? 5 mmHg SV ? 109 ml ?? Dim Index 0.87 SV index ?? 58 ml/m? ? ? CO ?6.7 l/min ?CI ?3.5 l/min/m? ? ? Mitral Valve: MVA ?3.6 cm? ? ? MV P 1/2 61 msec Tricuspid Valve and estimated PA pressures: TR Vmax 2.2 m/s TAPSE 2.4 cm TR maxG 19 mmHg . This study was interpreted by an [facility] accredited facility. CC: HIM (med records) [facility]. ??Final ?? Procedure Note Sheng Nagel MD - 09/07/2023 ECHOCARDIOGRAM SINDY CASTILLO : 1955 68 years Study Date: 09/07/2023 10:07:05 AM Gender: F BP: 137/80 mmHg Height: 163.00 cm BSA: 1.90 m? ? ? Weight: 84.00 kg Tech: [facility] Referring MD: LILLY FOWLER Site: [facility] Reading Location: Mobile OP Patient Location: Outpatient. Procedure: 2D, Color Doppler and Spectral Doppler. Indication for study: Palpitations Cardiac Rhythm: Normal sinus.Study quality: Good. Final Impressions: 1. Normal left ventricular size, normal wall thickness, normal globalsystolic function, calculated EF of 68 %. 2. Right ventricular cavity size is normal, global systolic RV functionis normal. Comparison There are no prior studies on this patient for comparison purposes. Chamber Sizes and Function Normal left ventricular size, normal wall thickness, normal globalsystolic function, calculated EF of 68 %. Left atrial size is normal. Leftatrial pressure is normal. Right ventricular cavity size is normal, globalsystolic RV function is normal. The right atrium is normal. Right atrialarea is 13 cm? ? ?. The pulmonary artery is of normal size and origin. Thesinus of Valsalva is normal sized. The ascending aorta is normal sized. Valves, RV Pressures and Diastolic Function The aortic valve is normal in structure and trileaflet, no stenosis andmild regurgitation. The mitral valve is normal in structure, trace mitralregurgitation. Normal diastolic function. The tricuspid valve is normal instructure. Tricuspid regurgitation is mild regurgitation. The tricuspidregurgitant velocity is 2.2 m/s, the estimated right ventricular systolicpressure is 19 mmHg plus right atrial pressure. There is normal estimatedpulmonary pressure by tricuspid regurgitation velocity and right atrialpressure. The pulmonic valve is normal. No pulmonary regurgitation. TTEimages do not appear adequate for transcather intervention with patientsupine. Masses, Effusion, Shunts There is no pericardial effusion. The inferior vena cava is normal sized,respiratory size variation greater than 50%. No left to right shunting wasdetected by limited color flow Doppler interrogation of the interatrialseptum. MEASUREMENTS AND CALCULATIONS 2-D Measurements and LV Function: LVID (d) 3.7 cm Planimetered EF 68 % LVID (s) 2.5 cm LV FS% (2D) 31 % IVS (d) 1.0 cm LVOT diameter 2.1 cm LVPW (d) 1.0 cm HR 61 bpm Ao Sinus 3.6 cm LA Vol index 23 ml/m2 Asc Ao 3.9 cm RA area 13 cm? ? ? RV Max 4C (d) 3.8 cm Diastology: Mitral Tissue Doppler E Peak 0.9 m/s e', Septum 0.08 m/s A Peak 0.8 m/s e', Lateral 0.11 m/s E/A 1.1 E/e' Average 9.25 DT 211 msec Aortic Valve: Vmax 1.4 m/s VANESA (V) 3.16 cm? ? ? VTI 0.37 m VANESA (I) 2.99 cm? ? ? LVOT V max 1.3 m/s Max PG 8 mmHg LVOT VTI 0.32 m Mean PG 5 mmHg SV 109 ml Dim Index 0.87 SV index 58 ml/m? ? ? CO 6.7 l/min CI 3.5 l/min/m? ? ? Mitral Valve: MVA 3.6 cm? ? ? MV P 1/2 61 msec Tricuspid Valve and estimated PA pressures: TR Vmax 2.2 m/s TAPSE 2.4 cm TR maxG 19 mmHg . This study was interpreted by an [facility] accredited facility. CC: HIM (med records) [facility]. Final Lilly Fowler INCLUSION SPECIALIST ECHO ORD * LAB TRACKING EVENT (08/18/2023 12:00 PM OCEAN FORWARDER) Other (Other) Client Collect / Unknown 08/18/2023 12:00 PM OCEAN FORWARDER 08/18/2023 8:56 PM OCEAN FORWARDER Sarita Alvarez MD LAB BILL ONLY [facility] [address] [place] [address], * PATH TISSUE EXAM (08/18/2023 9:36 AM OCEAN FORWARDER) Case Report Pathology Report ?Case: [id number] ? Authorizing Provider: ??Sarita Alvarez MD ??Collected: ? 08/18/2023 0936 ? Ordering Location: ? [facility] ?Received: ?08/19/2023 0944 ? Pathologist: ? Roldan Bliss, ? MD ? Specimen: ?Gallbladder ? 08/22/2023 1:39 PM CDT [facility] Final Diagnosis A) GALLBLADDER, CHOLECYSTECTOMY: 1. Chronic cholecystitis 2. Cholelithiasis 3. Negative for dysplasia and malignancy 08/22/2023 1:39 PM CDT [facility] Clinical Information Cholecystectomy left 08/22/2023 1:39 PM CDT [facility] Gross Description A) Received in formalin, labeled with the patient's name and gallbladder, is a 9.0 x 4.5 x 3.2 cm intact gallbladder. ??There are multiple black gallstones identified. There are no mucosal lesions identified. The average wall thickness is 0.3 cm. There is no abnormal wall thickening identified. No cystic duct lymph node is identified. Outcome Analyst sections are submitted in one cassette. TMO 08/19/2023 08/22/2023 1:39 PM CDT [facility] Microscopic Description The final diagnosis is based on microscopic examination of appropriate sections of all specimens. 08/22/2023 1:39 PM CDT [facility] Additional Information Interpreted at [facility] - [address], [place] [address] 08/22/2023 1:39 PM CDT [facility] Other SPECIMEN FROM GALLBLADDER / Unknown 08/18/2023 9:36 AM OCEAN FORWARDER 08/19/2023 9:44 AM OCEAN FORWARDER Sarita Alvarez MD PATHOLOGY/CYTOLO G[facility] [address] [place] [address], * SCAN-COLONOSCOPY (05/14/2008 12:00 AM OCEAN FORWARDER) Narrative Procedure Note Scanner - 05/14/2008 12:00 AM OCEAN FORWARDER Scanner OTHER from Last 3 Months or Most Recently Relevant to Health Maintenance Care Teams Caramel Cutter Helper Relationship Specialty Start Date End Date Lilly Fowler NP [address] [place] [address] PCP - General Emergency Medicine 07/03/23
--- OUTSIDE RECORDS SUMMARY | 2023-11-04 13:18 | XMS_ITS | Encounter Summary ---
Author Organization [facility] Address [address] [place] [address] Care Team Providers Care Conveyor Feeder Offbearer Name Role Phone Elsewhere, Pcp Primary Care Provider Unavailabl e Reason for Visit * Reason Comments Med Refill Encounter Details Date Type Department Care Team (Late st Contact Info) Description 09/21/2023 Refill Department of [facility] in [place], [place] [address] [place] [address] Navi Nguyen, Quinn., P.A. [address] [place] [address] Med Refill Social History Tobacco [...] any clubs o r organizations such as religion groups, unions, fraternal or athletic groups, or [...] Answer Date Recorded PHQ-2 Score 1 03/25/2021 [facility] Answer Date Recorded [...] place to sleep or slept in a jail (including now)? No 06/24/2021 Depression Answer Date [...] Sex Assigned at Female 06/24/2021 3:47 PM ARMATURE WINDER HELPER REPAIR Gender Identity Female 01/12/2018 9:08 AM CDT Sexual Orientation Straight 01/12/2018 9: 08 AM CDT documented as of this encounter Miscellaneous Notes * Telephone Encounter - Margaret Adair - 09/22/2023 7:50 AM CDT No PCP listed at [facility] documented in this encounter Plan of Treatment Not on file documented as of this encounter Visit Diagnoses Not on filedocumented in this encounter Additional Health Concerns Assessment Noted Time PHQ-9 Depression Total Score: 7 03/25/20 21 1:02 PM CDT documented as of this encounter Care Teams Conveyor Feeder Offbearer Relationship Specialty Start Date End Date Elsewhere, Pcp PCP - General Internal Medicine 02/01/22 documented as of this encounter
--- NOTE | 2023-11-04 13:20 | CRLHL7_ITS ---
For Patients: As a result of the Century Cures Act, medical imaging exams and procedure reports are released immediately into your electronic medical record. You may view this report before your referring provider. If you have questions, please contact your health care provider. BILATERAL SCREENING MAMMOGRAM WITH COMPUTER-AIDED DETECTION AND TOMOSYNTHESIS TECHNIQUE: CC and MLO views were obtained. These mammographic images have been obtained using full-field digital technique. These mammographic images were interpreted with the benefit of computer-aided detection. Breast Tomosynthesis was used in this interpretation. COMPARISON FILM: 09/01/2022, 06/24/2021, 01/17/2020. FINDINGS: There are scattered areas of fibroglandular density IMPRESSION: There is no radiographic evidence for malignancy. ASSESSMENT: BI-RADS Category 2: Benign RECOMMENDATION: Routine screening mammogram in 1 year. A lay language report of this examination will be provided to the patient. Ascencion Borges M.D. Diagnostic Radiologist [email or web address] RORY/Dictated by: Ascencion Borges MD @ 11/09/2023 10:09:00 AM (Electronically Signed)
== END 2023-11-04 13:17 | disposition home or self-care (01) ==
LOC: MAMMO 13:17
PROVIDERS: PCP Nurse Practitioner Family; Visit Provider Nurse Practitioner Family
DX: Z12.31 Encounter for screening mammogram for malignant neoplasm of breast (principal)
CPT/HCPCS: 77063; 77067

== ENCOUNTER 2024-01-10 08:42 | Emergency (ER) | payer MEDICARE, SELFPAY ==
[2024-01-10 08:45] VITALS: BP 115/75; PULSE 72; RESP 18; TEMP 36.4; O2SAT 95; BMI 30.9
--- NOTE | 2024-01-10 09:27 | CRLHL7_ITS ---
For Patients: As a result of the Cures Act, medical imaging exams and procedure reports are released immediately into your electronic medical record. You may view this report before your referring provider. If you have questions, please contact your health care provider. INDICATION: Cough. TECHNIQUE: Chest 2 views. COMPARISON: Chest radiographs dated 07/04/2023. FINDINGS: Cardiovascular and mediastinum: Heart size is normal. Unremarkable mediastinum. Lungs and pleural spaces: Lungs are clear. No sign of infiltrate or mass. No sign of pleural effusion. No pneumothorax. Bones and soft tissues: No significant findings. IMPRESSION: No acute findings and no significant changes from the prior exam. Dictated by Fidel Costa MD @ 01/10/2024 9:52:15 AM (Electronically Signed)
--- NOTE | 2024-01-10 10:27 | ED.GENADULT ---
HPI - General Adult General Date Seen: 01/10/24 Chief complaint: Cough Stated complaint: cough 1 month Time Seen by Provider: 01/10/24 10:27 History of Present Illness HPI narrative: This is a 68-year-old female with a past medical history of GERD, previous GI bleeding, anxiety/depression, hypertension, hypothyroidism, who presents to the ER this morning with concern for cough. It is productive of yellow sputum. She has had a cough ongoing for more than 3 weeks. She has already been seen by her doctor and put on a course of Azithromycin about a week ago but is not feeling any better. She is not having any fevers. She has already tested for COVID and was negative. Medical record indicates that she was seen 5 days ago on 01/04. She complained of productive cough, also some vomiting and diarrhea. Prescribed a Z-Giovanni, codeine with guaifenesin. She took the Z-Giovanni but is not getting better. She did not fill the prescription for codeine. She has had ongoing cough. Her doctor told her that if she does not get better after the Z-Giovanni they may have to get a chest x-ray so she came here to the ER to get the x-ray today. She is not having any worsening cough. No high fevers. No shortness of breath. No chest pain. No sore throat. No nasal congestion. She notes that her has dementia and is in the intermediate and some broad and they have been having COVID there. She tested for COVID at home last week or the week before and was negative. Related Data Home Medications ?Medication ?Instructions ?Recorded ?Confirmed melatonin 3 mg capsule 3 mg PO QDAY 01/04/22 01/05/24 Previous Rx's ?Medication ?Instructions ?Recorded levothyroxine 75 mcg tablet 75 mcg PO QDAY 90 days #90 tabs 07/04/23 esomeprazole magnesium 40 mg 40 mg PO QDAY #90 caps 07/29/23 capsule,delayed release (Nexium) sertraline 100 mg tablet 150 mg (1.5 x 100 mg) PO DAILY 09/26/23 #135 tabs codeine 10 mg-guaifenesin 100 mg/5 10 ml PO Q4-6H PRN cough #200 mL 01/05/24 mL oral liquid benzonatate 100 mg capsule 100 mg PO TID PRN cough #14 caps 01/10/24 prednisone 20 mg tablet 40 mg (2 x 20 mg) PO DAILY 5 days 01/10/24 #10 tabs Allergies Allergy/AdvReac Type Severity Reaction Status Date / Time amoxicillin Allergy Intermediate Rash Verified 01/05/24 11:09 hydrocortisone Allergy Unknown throat Verified 01/05/24 11:09 tightening triamcinolone Allergy Unknown Verified 01/05/24 11:09 clavulanic acid Allergy Verified 01/05/24 11:09 [facility] Medical History (Updated 01/10/24 @ 10:46 by Doc Mora MD) Hyperlipidemia ?E78.5 - Hyperlipidemia, unspecified (ICD-10) Subarachnoid hemorrhage ?I60.9 - Nontraumatic subarachnoid hemorrhage, unspecified (ICD-10) Stress ?F43.9 - Reaction to severe stress, unspecified (ICD-10) Onychomycosis ?B35.1 - Tinea unguium (ICD-10) Lytic lesion of bone on x-ray ?M89.9 - Disorder of bone, unspecified (ICD-10) Insomnia ?G47.00 - Insomnia, unspecified (ICD-10) Hypothyroidism ?E03.9 - Hypothyroidism, unspecified (ICD-10) Hypertension ?I10 - Essential (primary) hypertension (ICD-10) History of simple renal cyst ?Z87.448 - Personal history of other diseases of urinary system (ICD-10) History of panic attacks ?Z86.59 - Personal history of other mental and behavioral disorders (ICD-10) History of gastroesophageal reflux (GERD) ?Z87.19 - Personal history of other diseases of the digestive system (ICD-10) History of gastric ulcer ?Z87.11 - Personal history of peptic ulcer disease (ICD-10) History of eczema ?Z87.2 - Personal history of diseases of the skin and subcutaneous tissue (ICD-10) History of depression ?Z86.59 - Personal history of other mental and behavioral disorders (ICD-10) Fracture of temporal bone ?S02.19XA - Other fracture of base of skull, initial encounter for closed fracture (ICD-10) Fatigue ?R53.83 - Other fatigue (ICD-10) Cataract of both eyes ?H26.9 - Unspecified cataract (ICD-10) Anxiety ?F41.9 - Anxiety disorder, unspecified (ICD-10) Surgical History (Updated 08/30/23 @ 10:50 by Sarita Alvarez MD) History of esophagogastroduodenoscopy (EGD) ?Z98.890 - Other specified postprocedural states (ICD-10) History of colonoscopy ?Z98.890 - Other specified postprocedural states (ICD-10) History of hysterectomy ?Z90.710 - Acquired absence of both cervix and uterus (ICD-10) Family History (Updated 08/16/23 @ 11:37 by Sravanthi Fields MD) Aunt Breast cancer Mother Cataract Diabetes Fracture of hip Heart disease High blood pressure Malignant neoplasm of endometrium Lung cancer Father COPD (chronic obstructive pulmonary disease) Diabetes High blood pressure Stroke Brother Diabetes Colon cancer, Onset Age: 42 Lung cancer Social History (Updated 08/16/23 @ 11:38 by Sravanthi Fields MD) Narrative: 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 No tobacco use. What is your current living situation?: I presently have a place to live Problems where you live: no known problems In the past 12 months, utilities in danger of being shut off: no In past 12 months, lack of transportation kept you from medical appts, meetings, work, or getting things needed for daily living: no In the past 12 mos, have been you worried that your food would run out before you had money to buy more?: never true In the past 12 mos, the food you bought just didn't last and you didn't have money to buy more?: never true Smoking Status: Never smoker Do you use any of these nicotine containing products: None How often do you have a drink containing alcohol: never How often do you have six or more drinks on one occasion: Never AUDIT-C Alcohol total score: 0 Non-prescribed substance use: denies use Caffeine: No How often does anyone, including family, friends and others, physically hurt you: never How often does anyone, including family, friends and others, insult or talk down to you: never How often does anyone, including family, friends and others, threaten you with harm: never How often does anyone, including family, friends and others, scream or curse at you: never Little interest or pleasure in doing things: not at all Feeling down, depressed, or hopeless: not at all Are you using contraception or practicing any form of control: No Exam Narrative: Exam Narrative: Constitutional: Appears well-developed and well-nourished. Alert. Conversant. Non toxic. HENT: Head: Atraumatic. Nose: Nose normal. Right ear: Mastoid, pinna, canal, TM normal. Left ear: Mastoid, pinna, canal, TM normal. Mouth/Throat: Oral mucosa is clear and moist. no trismus. Pharynx normal. Tonsils surgically absent. No erythema. Eyes: Conjunctivae normal. EOM normal. Pupils equal, round, and reactive to light. No scleral icterus. Neck: Normal range of motion. Neck supple. No tracheal deviation present. Cardiovascular: Normal rate, regular rhythm. No gallop. No friction rub. No murmur heard. Symmetric radial artery pulses Pulmonary/Chest: Effort normal. No stridor. No respiratory distress. No wheezes. No rales. No rhonchi . No tenderness. Musculoskeletal: RUE: Normal range of motion. No tenderness. No deformity LUE: Normal range of motion. No tenderness. No deformity RLE: Normal range of motion. No edema. No tenderness. No deformity LLE: Normal range of motion. No edema. No tenderness. No deformity Lymph: No cervical adenopathy. Neurological: Alert and oriented to person, place, and time. Normal strength. CN II-VII intact. No sensory deficit. GCS eye subscore is 4. GCS verbal subscore is 5. GCS motor subscore is 6. Normal coordination Skin: Skin is warm and dry. No rash noted. No pallor. Normal capillary refill. Psychiatric: Normal mood. Normal affect. Const: Vital Signs, click to edit/add: Vital Signs - 24 hr 01/10/24 08:45 Temperature 97.5 F L Pulse Rate [Right Pulse Oximeter] 72 Respiratory Rate 18 Blood Pressure [Ri ght Upper Arm] 115/75 Pulse Oximetry 95 Oxygen Delivery Me thod Room Air Course Vital Signs Vital signs: Initial Vital Signs Temperature 97.5 F L 01/10/24 08:45 Temperature Source Temporal Artery Scan 01/10/24 08:45 Pulse Rate 72 01/10/24 08:45 Respiratory Rate 18 01/10/24 08:45 Blood Pressure 115/75 01/10/24 08:45 Blood Pressure Mean 88 01/10/24 08:45 Blood Pressure Position Sitting 01/10/24 08:45 Pulse Oximetry 95 07/30/24 08:45 Oxygen Delivery Method Room Air 01/10/24 08:45 Vital Signs Temperature 97.5 F L 01/10/24 08:45 Pulse Rate 72 01/10/24 08:45 Respiratory Rate 18 01/10/24 08:45 Blood Pressure 115/75 01/10/24 08:45 Pulse Oximetry 95 01/10/24 08:45 Oxygen Delivery Method Room Air 01/10/24 08:45 Temperature 97.5 F L 01/10/24 08:45 Pulse Rate 72 01/10/24 08:45 Respiratory Rate 18 01/10/24 08:45 Blood Pressure 115/75 01/10/24 08:45 Pulse Oximetry 95 01/10/24 08:45 Oxygen Delivery Method Room Air 01/10/24 08:45 Medical Decision Making MDM Narrative Medical decision making narrative: This patient presents for evaluation of a through history of cough that has been productive for the past couple of we weeks. This is consistent with an upper respiratory tract infection. Viral testing was negative for coronavirus at home. She has already been put on a course of his the mycin but has not been improving on that so came to the ER today to be rechecked. We did obtain chest x-ray today based on duration of cough and is normal. No evidence for pneumonia, lung abscess, pleural effusion, empyema, other abnormality.. There is no signs at this point of serious bacterial infection such as OM, RPA, epiglottitis, EQUIPMENT HIRE MANAGER, strep pharyngitis, pneumonia, sinusitis, meningitis, bacteremia, serious bacterial infection. She is not having any wheezing or bronchospasm. She is a nonsmoker. No history of asthma/COPD. Suspect this may be a protracted post viral cough or possibly bronchitis. Would not benefit from additional course of antibiotics at this time. She did have some vomiting and diarrhea a week ago but has no ongoing gastrointestinal symptoms at this point and no signs of dehydration. Close followup with primary care physician is indicated. Return to ED for fever > 103, protracted vomiting, confusion, or other worsening. The prescription for prednisone 40 mg daily for 5 days, Tessalon for symptomatic support. Discharge Plan Discharge Clinical Impression: Cough Patient Disposition: Home, Self-Care Condition: Stable Instructions: Acute Cough (ED) Additional Instructions: As we discussed, if you have worsening cough, trouble breathing, chest pain, or fever, please come back to the ER see your doctor right away Try the steroids for 5 days and use the cough medicine, Tessalon, if needed to help suppress your cough. Prescriptions: New prednisone 20 mg tablet 40 mg PO DAILY 5 Days Qty: 10 0RF benzonatate 100 mg capsule 100 mg PO TID PRN (Reason: cough) Qty: 14 0RF No Action esomeprazole magnesium [Nexium] 40 mg capsule,delayed release(DR/EC) 40 mg PO QDAY Qty: 90 3RF melatonin 3 mg capsule 3 mg PO QDAY codeine-guaifenesin 10-100 mg/5 mL liquid 10 ml PO Q4-6H PRN (Reason: cough) Qty: 200 0RF levothyroxine 75 mcg tablet 75 mcg PO QDAY 90 Days Qty: 90 3RF sertraline 100 mg tablet 150 mg PO DAILY Qty: 135 3RF Follow Up/Referrals: Tiffany Fowler, SENIOR PRODUCT DEVELOPMENT MANAGER, BREAD BAKER [Primary Care Provider] - Stand Alone Forms: [facility] Info Instructions
--- OUTSIDE RECORDS SUMMARY | 2024-01-10 10:49 | XMS_ITS | Encounter Summary ---
Author Organization [facility] Address [address] [place] [address] Care Team Providers Care Airport Location Manager Name Role Phone Elsewhere, Pcp Primary Care Provider Unavailabl e Encounter Details Date Type Department Care Team (Latest Contact Info) Description 11/17/2023 Clinical Communication Department of Otorhinolaryngology in [place], [place] [address] [place] [address] Provider, Unknown Social History Tobacco Use Types Packs/Day Years [...] often do you attend chur ch or druze services? More than 4 times per year 06/24/2021 Do you belong to any clubs o r organizations such as lutheran groups, unions, fraternal or athletic groups, or [...] a drink containing alc ohol? Never 06/24/2021 Average Number of Drinks Not on file 022 Frequency of Binge Drinking Not on file 06/13 Overall Financial Resource Strain (CARDIA) Answe r Date Recorded How hard is it for you to pa y for the very basics like food, housing, medical care, and heating? 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
--- OUTSIDE RECORDS SUMMARY | 2024-01-10 10:49 | XMS_ITS | Referral Summary ---
Author Organization [facility] Address [address] [place] [address] Care Team Providers Care Fire Protection Engineering Technician Name Role Phone Elsewhere, Pcp Primary Care Provider Unavailabl e Source Comments Patient records contain information from all sites at [facility]. For routine questions regarding patient records, call [phone] during business hours, M-F 8:00 AM - 5:00 PM Central Time. Record requests for emergency care only can be directed to [phone] at any time.[facility] Encounters Date Type Department Care Team Description 12/21/2023 2:09 PM CDT - 12/21/2023 11:59 PM CDT Hospital Encounter Department of Radiology, [facility], in [place], [place] [address] [place] [address] Sravanthi Atkins M.D. Nodules Pulmonary Multiple Discharge Disposition: Home or Self Care 11/17/2023 Clinical Communication Department of Otorhinolaryngology in [place], [place] [address] [place] [address] Provider, Unknown 11/15/2023 [facility] [address] [place] [address] Tiffany Fowler C.N.P. 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 More than 4 times per year [...] Answer Date Recorded PHQ-2 Score 1 03/[facility]/2021 [facility] Answer [...] place to sleep or slept in a penitentiary (including now)? 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 ??Multiple bilateral solid lung nodules are stable. 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 2. ??The part solid nodule with 4 mm solid component in the apical right upper lobe is stable. Narrative 12/21/2023 3:25 PM CDT EXAM: CT CHEST WITHOUT IV CONTRAST COMPARISON: 11/30/2022, 08/30/2022 FINDINGS: Airways, lungs, pleura: Multiple solid and part solid nodules scattered throughout both lungs are stable. The largest solid nodule is a 13 mm x 9 mm nodule in the medial right middle lobe (series 201, image 359). The largest part solid nodule is an 11 mm x 5 mm nodule with 4 mm solid component in the apical right upper lobe (series 201, image 100). No new lung nodules identified. Mild bronchial wall thickening persists. Mosaic attenuation of the lung parenchyma is compatible with air trapping from small airways disease. No pleural effusion is present. Cardiovascular: ??Mild coronary artery calcification. Right and left atrial enlargement. Mild descending thoracic aortic calcification. Lymph nodes: No enlarged lymph nodes. Calcified lymph nodes are associated with calcified lung nodules, compatible with sequelae of prior granulomatous disease. Mediastinum: Small hiatal hernia. Bones: Bones are demineralized. Lower neck: Low-attenuation of the thyroid is compatible with hypothyroidism. Upper abdomen: Liver and renal cysts are incompletely evaluated. Procedure Note Ld Maxwell M.D. - 12/21/2023 EXAM: CT CHEST WITHOUT IV CONTRAST COMPARISON: 11/30/2022, 08/30/2022 FINDINGS: Airways, lungs, pleura: Multiple solid and part solid nodules scatteredthroughout both lungs are stable. The largest solid nodule is a 13 mm x 9mm nodule in the medial right middle lobe (series 201, image 359). Thelargest part solid nodule is an 11 mm x 5 mm nodule with 4 mm solid component in the apical right upper lobe(series 201, image 100). No new lung nodules identified. Mild bronchial wall thickening persists. Mosaic attenuation of the lungparenchyma is compatible with air trapping from small airways disease. Nopleural effusion is present. Cardiovascular: Mild coronary artery calcification. Right and left atrialenlargement. Mild descending thoracic aortic calcification. Lymph nodes: No enlarged lymph nodes. Calcified lymph nodes are associatedwith calcified lung nodules, compatible with sequelae of priorgranulomatous disease. Mediastinum: Small hiatal hernia. Bones: Bones are demineralized. Lower neck: Low-attenuation of the thyroid is compatible withhypothyroidism. Upper abdomen: Liver and renal cysts are incompletely evaluated. IMPRESSION: 1. Multiple bilateral solid lung nodules are stable. The presence ofmultiple lung nodules and signs of air trapping are compatible withdiffuse idiopathic pulmonary neuroendocrine cell hyperplasia. 2. The part solid nodule with 4 mm solid component in the apical rightupper lobe is stable. Sravanthi Atkins M.D. IMG CT PROCEDURES * (ABNORMAL) Lipid Panel (12/18/2020 9:24 AM [...] CDT 12/18/2020 10:29 AM CDT Navi Nguyen P.A.-C. LAB BLOOD ADD- ON [facility] [address] [place] [address], [facility] [place] [address] [place] [address] * S-TSH (Thyroid-Stimulating Hormone - Sensitive) (12/18/2020 9:24 AM CDT) TSH, Sensitive 1.2 0.3 - 4.2 mIU/L 12/18/2020 11:04 AM CDT [facility] Blood (Blood, Venous) 12/18/2020 9:24 AM CDT 12/18/2020 10:30 AM CDT Navi Nguyen P.A.-C. LAB BLOOD ADD- ON [facility] [address] [place] [address], [facility] [place] [address] [place] [address] * (ABNORMAL) Comprehensive Metabolic Panel (12/18/2020 9:24 [...] CDT 12/18/2020 10:29 AM CDT Navi Nguyen P.A.-C. LAB BLOOD ADD- ON [facility] [address] [place] [address], [facility] [place] [address] [place] [address] * BI Breast Screening Bilateral with Tomosynthesis [...] S Negative Negative 09/30/2017 8:33 AM CDT [facility] Comment:[id number] rat io is <1.00. Blood (Blood, Venous) 09/29/2017 10:53 AM CDT 09/30/2017 7:24 AM CDT Agustin Stuart M.D. LAB MICROBIOLOGY - B LOOD ORDERABLES [facility] [address] [place] [address] from Last 3 Months or Most Recently Relevant to Health Maintenance Care Teams Fire Protection Engineering Technician Relationship Specialty Start Date End Date Elsewhere, Pcp PCP - General Internal Medicine 02/01/22
--- OUTSIDE RECORDS SUMMARY | 2024-01-10 10:49 | XMS_ITS | Clinical Summary ---
Author Organization [facility] Address [address] [place] [address] Care Team Providers Care Manager Hris Name Role Phone Elsewhere, Pcp Primary Care Provider Unavailabl e Source Comments Patient records contain information from all sites at [facility]. For routine questions regarding patient records, call [phone] during business hours, M-F 8:00 AM - 5:00 PM Central Time. Record requests for emergency care only can be directed to [phone] at any time.[facility] Allergies [...] PM CDT Hospital Encounter Department of Radiology, [facility], in [place], [place] [address] [place] [address] Sravanthi Atkins M.D. [facility] Pulmonary Multiple Discharge Disposition: Home or Self Care 11/17/2023 Clinical Communication Department of Otorhinolaryngology in [place], [place] [address] [place] [address] Provider, Unknown 11/15/2023 [facility] AND [facility] [address] [place] [address] Tiffany Fowler C.NMarkP. Pain Ear Left (Primary Dx); Hemorrhage Subarachnoid Nontraumatic (HCC); Other Abnormalities Of Gait And Mobility from Last 3 Months Immunizations Name Administration [...] How often do you attend [facility] or congregation services? More than 4 times per year 06/24/2021 Do you belong to any clubs o r organizations such as zoroastrianism groups, unions, fraternal or athletic groups, or [...] Date Recorded PHQ-2 Score 1 03/25/2021 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 Sravanthi RAYA CT PROCEDURES * (ABNORMAL) Lipid Panel (12/18/2020 9:24 AM CDT) Pathologist [facility] Cholesterol, Total 224(H) mg/dL 2020 11:14 AM [...] Navi Nguyen P.A.-C. LAB BLOOD ADD- ON Performing Organization Address [facility] Co de Phone Number [facility] [address] [address], [facility] in [place] [address] [place] [address] * S-TSH (Thyroid-Stimulating Hormone - Sensitive) (12/18/2020 9:24 AM CDT) TSH, Sensitive 1.2 0.3 - 4.2 mIU/L 12/18/2020 11:04 AM CDT OWAT Blood (Blood, Venous) 12/18/2020 9:24 AM CDT 12/18/2020 10:30 AM CDT Navi Nguyen P.A.-C. LAB BLOOD ADD- ON Performing Organization Address [facility] Co de Phone Number [facility] [address] [place] [address], [facility] in [place] [address] [place] [address] * (ABNORMAL) Comprehensive Metabolic Panel (12/18/2020 9:24 [...] Navi Nguyen P.A.-C. LAB BLOOD ADD- ON [facility] [address] [place] [address], [place] [facility] in [place] [address] [place] [address] * BI Breast Screening Bilateral with Tomosynthesis [...] S Negative Negative 09/30/2017 8:33 AM CDT [facility] Comment:Ahpyro-nt-urmqxu rat io is <1.00. Blood (Blood, Venous) 09/29/2017 10:53 AM CDT 09/30/2017 7:24 AM CDT Agustin Stuart M.D. LAB MICROBIOLOGY - B LOOD ORDERABLES [facility] [address] [place] [address] from Last 3 Months or Most Recently Relevant to Health Maintenance Care Teams Manager Hris Relationship Specialty Start Date End Date Elsewhere, Pcp PCP - General Internal Medicine 02/01/22
--- OUTSIDE RECORDS SUMMARY | 2024-01-10 10:49 | XMS_ITS ---
Author Organization [facility] Address [address] [place] [address] Care Team Providers Care Operating Theatre Technician Name Role Phone Unavailable Unavailable Unavailable Surgery Details Not on file Complications Check Surgery Details section. Procedure Estimated Blood Loss Check Surgery Details section. Procedure Findings Check Surgery Details section. Procedure Specimens Taken Check Surgery Details section.
--- OUTSIDE RECORDS SUMMARY | 2024-01-10 10:49 | XMS_ITS | Encounter Summary ---
Author Organization [facility] Address [address] [place] [address] Care Team Providers Care Building Operator Name Role Phone Elsewhere, Pcp Primary Care Provider Unavailabl e Reason for Referral * MRI/CAT/PET Scan (Routine) - Closed Specialty Diagnoses / Procedures Referred By Contac t Referred To Contact Radiology Diagnoses Nodules Pulmonary Multiple Procedures CT Chest without IV Contrast Sravanthi Atkins M.D. [address] [place] [address] [facility] Referral ID Status Reason Start Date Expiration Date Visits Re quested Visits Authorized [id number] Closed 11/30/2022 12/21/2023 1 3 Reason for Visit * MRI/CAT/PET Scan (Routine) - Closed Specialty Diagnoses / Procedures Referred By Farida arreola Referred To Contact Radiology Diagnoses Nodules Pulmonary Multiple Procedures CT Chest without IV Contrast Sravanthi Atkins M.D. [address] [place] [address] [facility] Referral ID Status Reason Start Date Expiration Date Visits Re quested Visits Authorized [id number] Closed 11/30/2022 12/21/2023 1 3 Encounter Details Date Type Department Care Team (Latest Contact Info) Description 12/21/2023 2:09 PM CDT - 12/21/2023 11:59 PM CDT Hospital Encounter Department of Radiology, [facility], in [place], [place] [address] [place] [address] Sravanthi Atkins M.D. [address] [place] [address] Nodules Pulmonary Multiple Discharge Disposition: Home or [...] How often do you attend chur or restorationism services? More than 4 times per year 06/24/2021 Do you belong to any clubs o r organizations such as mu-ism groups, unions, fraternal or athletic groups, or [...] Frequency of Binge Drinking Not on file 01/1 07/2021 Overall Financial Resource Strain (CARDIA) Answe r Date Recorded How hard is it for you to pa y for the very basics like food, housing, medical care, and heating? Not hard at all 06/24/2021 PHQ-2 Answer Date Recorded PHQ-2 Score 1 03/25/2021 [facility] - Occupational Stress Questionnaire Answer Date [...] place to sleep or slept in a fpc (including now)? No 06/24/2021 Depression Answer Date [...] Sex Assigned at Female 06/24/2021 3:47 PM RATING OFFICER Gender Identity Female 01/12/2018 9:08 AM CDT Sexual Orientation Straight 01/12/2018 9: 08 AM CDT documented as of this encounter Medications at Time of Discharge Medication Sig Dispensed Refills Start Date End Date acetaminophen (TYLENOL EXTRA STRENGTH) 500 mg tablet Take 1 tablet by mouth every 6 (six) hours as needed. 08/27/2014 hydroCHLOROthiazide (HYDRODIURIL) 25 mg tablet Take 1 tablet (25 mg total) by mouth daily. 90 tablet 04/07/2022 ibuprofen (for_ADVIL,MOTRIN) 200 mg tablet Take 1-2 tablets by mouth as needed. 01/03/2012 levothyroxine (SYNTHROID, LEVOTHROID) 75 mcg tablet Take 1 tablet (75 mcg total) by mouth daily with breakfast. 90 tablet 04/07/2022 omeprazole (PriLOSEC) [address] capsule Take 1 capsule (40 mg total) by mouth every morning before breakfast. 90 capsule 04/07/2022 sertraline (ZOLOFT) 100 mg tablet Take [...] 12/21/2023 2:50 PM CDT [facility] Pulmonary Multiple documented in this [...] lobe is stable. Sravanthi RAYA CT PROCEDURES documented in this encounter Visit Diagnoses Diagnosis Nodules Pulmonary Multiple documented in this encounter Additional Health Concerns Assessment Noted Time PHQ-9 Depression Total Score: 7 03/25/20 21 1:02 PM CDT documented as of this encounter Care Teams Building Operator Relationship Specialty Start Date End Date Elsewhere, Pcp PCP - General Internal Medicine 02/01/22 documented as of this encounter
--- OUTSIDE RECORDS SUMMARY | 2024-01-10 10:50 | XMS_ITS | Encounter Summary ---
Author Organization [facility] Address [address] [place] [address] Care Team Providers Care House Registry Rn Name Role Phone Elsewhere, Pcp Primary Care Provider Unavailabl e Encounter Details Date Type Department Care Team (Late st Contact Info) Description 11/15/2023 [facility] AND [facility] [address] [place] [address] Tiffany Fowler, C.N.P. [address] [place] [phone] Pain Ear Left (Primary Dx); Hemorrhage Subarachnoid Nontraumatic (HCC); Other Abnormalities Of Gait And Mobility Social History Tobacco Use Types Packs/Day Years [...] often do you attend chur ch or baptist services? More than 4 times per year 06/24/2021 Do you belong to any clubs o r organizations such as yazidism groups, unions, fraternal or athletic groups, or [...] 1 03/25/2021 [facility] - [...] Sex Assigned at Female 06/24/2021 3:47 PM TRUCK SPOTTER Gender Identity Female 01/12/2018 9:08 AM CDT Sexual Orientation Straight 01/12/2018 9: 08 AM CDT documented as of this encounter Plan of Treatment Not on file documented as of this encounter Visit Diagnoses Diagnosis Pain Ear Left- Primary Hemorrhage Subarachnoid Nontraumatic (HCC) Other Abnormalities Of Gait And Mobility documented in this encounter Additional Health Concerns Assessment Noted Time PHQ-9 Depression Total Score: 7 03/25/20 21 1:02 PM CDT documented as of this encounter Care Teams House Registry Rn Relationship Specialty Start Date End Date Elsewhere, Pcp PCP - General Internal Medicine 02/01/22 documented as of this encounter
--- OUTSIDE RECORDS SUMMARY | 2024-01-10 10:50 | XMS_ITS | Clinical Summary ---
Author Organization [facility] [place], [place] [address] Care Team Providers Care Combat Systems Operator Name Role Phone Tiffany Fowler NP Primary Care Provider [phone] Allergies No known active allergies Medications Medication [...] Date Personal history of colonic polyps 07/13/2012 Social History Tobacco Use Types Packs/Day Years [...] Comments Blood Pressure 122/84 07/03/2023 11:20 PM WATERPROOFING SUPERVISOR Pulse 71 07/03/2023 11:20 PM WATERPROOFING SUPERVISOR Temperature 36.6 ??C (97.8 ??F) 07/03/2023 10:[address] Respiratory Rate 16 07/03/2023 10:39 PM WATERPROOFING SUPERVISOR Oxygen Saturation 94% 07/03/2023 11:20 PM WATERPROOFING SUPERVISOR Inhaled Oxygen Concentration - - Weight 86.4 kg (190 lb 7.6 oz) 07/03/2023 10:39 PM WATERPROOFING SUPERVISOR Height 162.6 cm (5' 4) 07/03/2023 10:39 PM WATERPROOFING SUPERVISOR Body Mass Index 32.7 07/03/2023 10:39 PM WATERPROOFING SUPERVISOR Plan of Treatment Health Maintenance Due Date [...] 1 - PCV) 08/23/2020 COVID-19 vaccine series (2022-24 season) 2023 05/09/2021, 10/07/2020, 09/03/2020 Influenza for age 65+ 02/12/2024 Procedures Procedure Name Priority Date/Time Associated Diagnosis Comments SCAN-COLONOSCOPY 05/14/2008 12:0 0 AM WATERPROOFING SUPERVISOR from Last 3 Months or Most Recently Relevant to Health Maintenance Results * SCAN-COLONOSCOPY (05/14/2008 12:00 AM WATERPROOFING SUPERVISOR) Narrative Procedure Note Scanner - 05/14/2008 12:00 AM WATERPROOFING SUPERVISOR Scanner OTHER from Last 3 Months or Most Recently Relevant to Health Maintenance Care Teams Combat Systems Operator Relationship Specialty Start Date End Date Tiffany oFwler NP [address] [place] [address] MARCELO Rosales [address] PCP - General Emergency Medicine 07/03/23
== END 2024-01-10 10:52 | disposition home or self-care (01) ==
PROVIDERS: Emergency Provider Emergency Medicine; PCP Nurse Practitioner Family
DX: R05.9 Cough, unspecified (principal)
CPT/HCPCS: 71046; 99282; 99283; 99284

== ENCOUNTER 2024-08-07 08:09 | Outpatient (CLI) | payer MEDICARE, SELFPAY | END 2024-08-07 08:10 | disposition home or self-care (01) | PROVIDERS: PCP Nurse Practitioner Family; Visit Provider Nurse Practitioner Family | DX: E78.5 Hyperlipidemia, unspecified (principal); E55.9 Vitamin D deficiency, unspecified; R73.03 Prediabetes; I10 Essential (primary) hypertension; E03.9 Hypothyroidism, unspecified; Z13.1 Encounter for screening for diabetes mellitus | CPT/HCPCS: 80053; 80061; 82306; 84443; 85025 ==

== ENCOUNTER 2024-11-21 09:01 | Emergency (ER) | payer MEDICARE, SELFPAY ==
[2024-11-21] VITALS (8 sets, daily range): BP systolic 128–154; BP diastolic 77–114; PULSE 62–76; RESP 9–16; TEMP 36.4; O2SAT 94–98; BMI 33.1
--- NOTE | 2024-11-21 09:20 | CRLHL7_ITS ---
For Patients: As a result of the Century Cures Act, medical imaging exams and procedure reports are released immediately into your electronic medical record. You may view this report before your referring provider. If you have questions, please contact your health care provider. Indication: Chest pain Technique: Chest 1 view Comparison: Chest x-ray 01/26/2024 Findings/Impression: Cardiovascular and mediastinum: Heart size and vasculature are normal in caliber and appearance. Lungs and pleural space: Lungs are clear. No sign of infiltrate or mass. No sign of pleural effusion. No pneumothorax. Bones and soft tissues: No acute findings. Dictated by Dejuan Dunn MD @ 11/21/2024 9:58:34 AM (Electronically Signed)
--- NOTE | 2024-11-21 09:21 | ED.GENADULT ---
HPI - General Adult General Chief complaint: Chest Pain Stated complaint: heart problems and bleeding Time Seen by Provider: 11/21/24 09:10 History of Present Illness HPI narrative: [age] year white female woke up this morning with palpitations. Then felt some pressure in her upper chest. She has been under lot of stress with her apparently entering hospice. She also noticed some rectal bleeding. She has had that intermittently over the last few months. She had a colonoscopy a year ago where they felt that she did have a great prep but the test was completed and she reports there was no abnormalities noted. She has had no fever, chills, denies any significant is significant chest pain at this time, no shortness of breath no diaphoresis nausea or vomiting. She has had no rectal pain. Related Data Home Medications ?Medication ?Instructions ?Recorded ?Confirmed melatonin 3 mg capsule 3 mg PO QDAY 01/04/22 11/21/24 Previous Rx's ?Medication ?Instructions ?Recorded hydrochlorothiazide 25 mg tablet 25 mg PO QDAY #90 tabs 04/10/24 omeprazole 40 mg capsule,delayed 40 mg PO QDAY 90 days #90 caps 06/26/24 release levothyroxine 75 mcg tablet 75 mcg PO QDAY 90 days #90 tabs 08/07/24 sertraline 100 mg tablet 150 mg (1.5 x 100 mg) PO DAILY 08/07/24 #135 tabs Allergies Allergy/AdvReac Type Severity Reaction Status Date / Time amoxicillin Allergy Intermediate Rash Verified 08/07/24 11:22 hydrocortisone Allergy Unknown throat Verified 08/07/24 11:22 tightening triamcinolone Allergy Unknown Verified 08/07/24 11:22 clavulanic acid Allergy Verified 08/07/24 11:22 Review of Systems Status of ROS: Reports: 6 or more systems reviewed and unremarkable except as noted in History and below [facility] Medical History Hyperlipidemia ?E78.5 - Hyperlipidemia, unspecified (ICD-10) Subarachnoid hemorrhage ?I60.9 - Nontraumatic subarachnoid hemorrhage, unspecified (ICD-10) Stress ?F43.9 - Reaction to severe stress, unspecified (ICD-10) Onychomycosis ?B35.1 - Tinea unguium (ICD-10) Lytic lesion of bone on x-ray ?M89.9 - Disorder of bone, unspecified (ICD-10) Insomnia ?G47.00 - Insomnia, unspecified (ICD-10) Hypothyroidism ?E03.9 - Hypothyroidism, unspecified (ICD-10) Hypertension ?I10 - Essential (primary) hypertension (ICD-10) History of simple renal cyst ?Z87.448 - Personal history of other diseases of urinary system (ICD-10) History of panic attacks ?Z86.59 - Personal history of other mental and behavioral disorders (ICD-10) History of gastroesophageal reflux (GERD) ?Z87.19 - Personal history of other diseases of the digestive system (ICD-10) History of gastric ulcer ?Z87.11 - Personal history of peptic ulcer disease (ICD-10) History of eczema ?Z87.2 - Personal history of diseases of the skin and subcutaneous tissue (ICD-10) History of depression ?Z86.59 - Personal history of other mental and behavioral disorders (ICD-10) Fracture of temporal bone ?S02.19XA - Other fracture of base of skull, initial encounter for closed fracture (ICD-10) Fatigue ?R53.83 - Other fatigue (ICD-10) Cataract of both eyes ?H26.9 - Unspecified cataract (ICD-10) Anxiety ?F41.9 - Anxiety disorder, unspecified (ICD-10) Surgical History Status post laparoscopic cholecystectomy ?Z90.49 - Acquired absence of other specified parts of digestive tract (ICD-10) History of esophagogastroduodenoscopy (EGD) ?Z98.890 - Other specified postprocedural states (ICD-10) History of colonoscopy ?Z98.890 - Other specified postprocedural states (ICD-10) History of hysterectomy ?Z90.710 - Acquired absence of both cervix and uterus (ICD-10) Family History Aunt Breast cancer Mother Cataract Diabetes Fracture of hip Heart disease High blood pressure Malignant neoplasm of endometrium Lung cancer Father COPD (chronic obstructive pulmonary disease) Diabetes High blood pressure Stroke Brother Diabetes Colon cancer, Onset Age: 42 Lung cancer Social History Narrative: 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 No tobacco use. What is your current living situation?: I presently have a place to live Problems where you live: no known problems In the past 12 months, utilities in danger of being shut off: no In past 12 months, lack of transportation kept you from medical appts, meetings, work, or getting things needed for daily living: no In the past 12 mos, have been you worried that your food would run out before you had money to buy more?: never true In the past 12 mos, the food you bought just didn't last and you didn't have money to buy more?: never true Smoking Status: Never smoker Do you use any of these nicotine containing products: None How often do you have a drink containing alcohol: never How often do you have six or more drinks on one occasion: Never AUDIT-C Alcohol total score: 0 Non-prescribed substance use: denies use Caffeine: No How often does anyone, including family, friends and others, physically hurt you: never How often does anyone, including family, friends and others, insult or talk down to you: never How often does anyone, including family, friends and others, threaten you with harm: never How often does anyone, including family, friends and others, scream or curse at you: never Are you using contraception or practicing any form of control: No Exam Narrative: Exam Narrative: Objective: Patient's vital signs are within normal limits other than slightly elevated systolic pressure Alert orient x3 No scleral icterus, she has good color, no cyanosis HEENT is unremarkable no facial asymmetry Neck is supple Chest is clear Heart rhythm regular without murmur Abdomen benign soft nontender Rectal exam shows external hemorrhoids small non thrombosed, there may be a slight fissure noted in her anal area versus irritation, rectal exam shows minimal stool for guaiac but a attempted to get a fecal blood sample. There was no blood on this examining glove Const: Vital Signs, click to edit/add: Vital Signs - 24 hr 11/21/24 09:07 11/21/24 09:19 11/21/24 09:43 Temperature 97.5 F L Pulse Rate 66 Pulse Rate [Pulse Oximeter] 76 Respiratory Rate 16 13 Blood Pressure Blood Pressure [Ri ght Upper Arm] 148/77 H Pulse Oximetry 95 94 95 Oxygen Delivery Me thod Room Air 11/21/24 10:03 11/21/24 10:32 11/21/24 11:02 Temperature Pulse Rate 68 66 66 Pulse Rate [Pulse Oximeter] Respiratory Rate 13 11 L Blood Pressure 154/114 H 128/83 Blood Pressure [Ri ght Upper Arm] Pulse Oximetry 94 97 97 Oxygen Delivery Me thod 11/21/24 11:03 11/21/24 11:32 Temperature Pulse Rate 65 62 Pulse Rate [Pulse Oximeter] Respiratory Rate 9 L 12 Blood Pressure 138/83 153/105 H Blood Pressure [Ri ght Upper Arm] Pulse Oximetry 98 97 Oxygen Delivery Me thod Course Vital Signs Vital signs: Initial Vital Signs Temperature 97.5 F L 11/21/24 09:07 Temperature Source Temporal Artery Scan 11/21/24 09:07 Pulse Rate 76 11/21/24 09:07 Respiratory Rate 16 11/21/24 09:07 Blood Pressure 148/77 H 11/21/24 09:07 Blood Pressure Mean 100 11/21/24 09:07 Blood Pressure Position Sitting 11/21/24 09:07 Pulse Oximetry 95 11/21/24 09:07 Oxygen Delivery Method Room Air 11/21/24 09:07 Vital Signs Temperature 97.5 F L 11/21/24 09:07 Pulse Rate 76 11/21/24 09:07 Respiratory Rate 16 11/21/24 09:07 Blood Pressure 148/77 H 11/21/24 09:07 Pulse Oximetry 95 11/21/24 09:07 Oxygen Delivery Method Room Air 11/21/24 09:07 Temperature 97.5 F L 11/21/24 09:07 Pulse Rate 62 11/21/24 11:32 Respiratory Rate 12 11/21/24 11:32 Blood Pressure 153/105 H 11/21/24 11:32 Pulse Oximetry 97 11/21/24 11:32 Oxygen Delivery Method Room Air 11/21/24 09:07 Medications Administered Medications: Discontinued Medications Generic Name Dose Route Start Last Admin Trade Name Freq PRN Reason Stop Dose Admin Sodium Chloride 500 mls @ 500 mls/hr 11/21/24 09:19 11/21/24 11:50 0.9 % Sodium Chloride 500 Ml IV 11/21/24 10:18 0 mls/hr .Q1H ONE Infusion Pantoprazole Sodium 40 mg 11/21/24 10:24 11/21/24 11:13 Pantoprazole Sodium 40 Mg Inj IVP 11/21/24 10:25 40 mg ONCE ONE Administration Medical Decision Making [facility] Narrative Medical decision making narrative: [age] year white female who is on a daily aspirin presents with rectal bleeding on and off for the last few months, he had episode today, she had palpitations today. She has a history of anxiety. She has no history of known cardiac disease. Will get a cardiac enzyme. Will get chest x-ray, EKG by my read shows normal sinus rhythm normal EKG no acute ST T wave changes. Patient will get laboratory studies, 500 mL normal saline bolus Check a fecal occult blood sample. Will also put the patient on property assessment monitor and oximeter. Decision disposition pending findings above. Addendum 11:13 a.m. patient's EKG by my read shows normal sinus rhythm no acute ST T wave changes, her stool was positive microscopically for blood, but there was no gross blood, she has not had a bowel movement or GI bleeding since she has been here. Her white count hemoglobin are normal hemoglobin is 12.8, platelets adequate, INR and PTT normal, ER profile profile unremarkable, proBNP normal, point of care troponin is negative. Patient be discharged home light activity observation she has been in a stable sinus rhythm since she has been here no ectopy. Follow up with regular doctor next 2 3 days consider repeat colonoscopy or other analysis at some point. If needed, the patient does have external hemorrhoid 2 certainly could cause some bleeding and a questionable anal fissure. Would recommend recheck with regular doctor as described. Lab Data Labs: Lab Results 11/21/24 11/21/24 11/21/24 Range/Units 09:20 09:25 09:41 WBC 6.23 (4.50-11.00) K/uL RBC 4.08 (4.00-5.20) m/uL Hgb 12.8 (12.0-16.0) gm/dL Hct 38.5 (33.0-51.0) % MCV 94 (80-100) fL MCH 31 (26-34) pg MCHC 33 (32-36) gm/dL RDW Coeff of Cal 12.1 (11.5-15.5) % Plt Count 229 (140-440) K/uL Neut % (Auto) 66.2 (42.0-72.0) % Lymph % (Auto) 23.8 (20-44) % Addison % (Auto) 8.0 (0.0-11.0) % Eos % (Auto) 1.3 (0.0-7.0) % Baso % (Auto) 0.5 (0.0-3.0) % Neut # (Auto) 4.13 (1.7-7.0) K/uL Lymph # (Auto) 1.48 (0.90-2.90) K/uL Addison # (Auto) 0.50 (0.00-0.90) K/UL Eos # (Auto) 0.08 (0.00-0.50) K/uL Baso # (Auto) 0.03 (0.00-0.30) K/uL Abs Immat Gran (auto) 0.01 (0.00-0.30) K/uL Imm/Tot Granulo (auto) 0.2 % INR 1.03 (0.91-1.10) APTT 25 (23-33) Seconds Sodium 138 (135-149) mmol/L Potassium 3.9 (3.6-5.1) mmol/L Chloride 103 (96-114) mmol/L Carbon Dioxide 28 (20-32) mmol/L Anion Gap 7 (7-15) mEq/L BUN 18 (7-30) mg/dL Creatinine 0.7 (0.5-1.5) mg/dL Estimated Creat Clear 45.85 Estimated GFR 94 ml/min Glucose 106 (60-115) mg/dL Calcium 9.7 (8.4-10.6) mg/dL Total Bilirubin 0.6 (0.1-1.5) mg/dL Direct Bilirubin 0.1 (0.0-0.5) mg/dL AST 42 H (12-35) U/L ALT 22 (4-35) U/L Alkaline Phosphatase 66 (40-150) U/L NT-Pro-B Natriuret Pep 260 (See Note) pg/mL Total Protein 7.0 (6.0-8.3) g/dL Albumin 4.3 (3.3-5.0) g/dL Stool Occult Blood Positive A (Negative) POC Troponin I 0.00 L (0.01-0.04) ng/ml Discharge Plan Discharge Clinical Impression: Chest pain, Rectal bleeding, External hemorrhoid Patient Disposition: Home, Self-Care Condition: Stable Additional Instructions: Stop your aspirin, recheck with regular doctor next 2-3 days, consider repeat colon study, discuss this with your doctor. No need for an urgent intervention. Return as needed. Activity Level: Light activity Discharge Diet: Regular Prescriptions: No Action melatonin 3 mg capsule 3 mg PO QDAY hydrochlorothiazide 25 mg tablet 25 mg PO QDAY Qty: 90 3RF omeprazole 40 mg capsule,delayed release(DR/EC) 40 mg PO QDAY 90 Days Qty: 90 3RF levothyroxine 75 mcg tablet 75 mcg PO QDAY 90 Days Qty: 90 3RF sertraline 100 mg tablet 150 mg PO DAILY Qty: 135 3RF Follow Up/Referrals: Tiffany Fowler APRN, BUSHLER [Primary Care Provider, Family Practice] Stand Alone Forms: Keyword [facility] Info Instructions
[2024-11-21 09:27] LABS: Fecal Occult Blood* Positive (Negative)
[2024-11-21 09:49] LABS: Basophils Absolute Auto 0.03 K/uL (0.00-0.30); Basophils Percent Auto 0.5 % (0.0-3.0); Eosinophils Absolute Auto 0.08 K/uL (0.00-0.50); Eosinophils Percent Auto 1.3 % (0.0-7.0); Hematocrit 38.5 % (33.0-51.0); Hemoglobin* 12.8 gm/dL (12.0-16.0); Immature Granulocytes Abs Auto 0.01 K/uL (0.00-0.30); Immature Granulocytes Pct Auto 0.2 %; Lymphocytes Absolute Auto 1.48 K/uL (0.90-2.90); Lymphocytes Percent Auto 23.8 % (20-44); Mean Corpuscular HGB Conc 33 gm/dL (32-36); Mean Corpuscular Hemoglobin 31 pg (26-34); Mean Corpuscular Volume 94 fL (80-100); Neutrophils Absolute Auto 4.13 K/uL (1.7-7.0); Neutrophils Percent Auto 66.2 % (42.0-72.0); Platelet Count* 229 K/uL (140-440); RDW Coefficient of Variation % 12.1 % (11.5-15.5); Red Blood Count 4.08 m/uL (4.00-5.20); White Blood Count* 6.23 K/uL (4.50-11.00)
[2024-11-21 09:50] LABS: Slide Review Reflex No
--- OUTSIDE RECORDS SUMMARY | 2024-11-21 09:56 | XMS_ITS | Clinical Summary ---
Author Organization [facility] Address [address] [place] [id number] Care Team Providers Care Systems Trainer Name Role Phone Tiffany Fowler NP Primary Care Provider [phone] Allergies No known active allergies Medications Levothyroxine 75 mcg cap Take by mouth. Activ e omeprazole (PRILOSEC) 40 mg Delayed-Release capsuleIndicatio ns:heartburn Take 40 mg by mouth once daily. Indications: HEARTBURN Active metoprolol (LOPRESSOR) 25 mg tabletIndication s:hypertension Take 25 mg by mouth 2 times daily. Indications: HYPERTENSION Active hydrochlorothiaz harjeet (HCTZ) 25 mg tabletIndication s:edema Take 25 mg by mouth once daily. Indications: EDEMA Active predniSONE (DELTASONE) 10 mg tablet Take 4 pills today and then decrease by 1 pill each day. 10 tablet 0 5 Active rx albuterol HFA (PROVENTIL; VENTOLIN) (90 mcg each actuation) inhaler (ED DC MED) Inhale 2 Puffs by mouth 4 times daily. 1 canister 0 5 Active rx albuterol HFA (PROVENTIL; VENTOLIN) (90 mcg each actuation) inhaler (ED DC MED)Indications: Mild persistent asthma without complication (HC) Inhale 2 Puffs by mouth 4 times daily. 1 canister 0 6 Active albuterol HFA 90 mcg/actuation inhalerIndicatio ns:Mild persistent asthma without complication (HC) Inhale 2 Puffs by mouth 4 times daily if needed. 1 Inhaler 0 6 Active cyclobenzaprine (FLEXERIL) 5 mg tabletIndication s:Dorsalgia Take 1 tablet by mouth at bedtime if needed for muscle spasms. 30 tablet 03/27/2018 2:07 PM CDT 8 Active famotidine (PEPCID) 20 mg tabletIndication s:Gastroesophage al reflux disease, unspecified whether esophagitis present Take 1 Tablet (20 mg) by mouth 2 times daily if needed for GI Upset or Heartburn. 60 Tablet 4 Active Active Problems Problem Noted Date Diagnosed Date Personal history of colonic polyps 07/13/2012 Social History Tobacco Use Types Packs/Day Years Used Date Smoking Tobacco: Never Alcohol Use Standard Drinks/Week Comments No 0 (1 standard drink = 0.6 oz pur e alcohol) Comments No Sex and Gender Information Value Date Recorded Sex Assigned at Not on file Legal Sex Female 7:33 AM FREELANCE COPYWRITER Gender Identity Not on file Sexual Orientation Not on file Obstetrics History Last Filed Vital Signs Vital Sign Reading Time Taken Comments Blood Pressure 122/84 07/03/2023 11:20 PM FREELANCE COPYWRITER Pulse 71 07/03/2023 11:20 PM FREELANCE COPYWRITER Temperature 36.6 C (97.8 F) 07/03/2023 10:39 PM FREELANCE COPYWRITER Respiratory Rate 16 07/03/2023 10:39 PM FREELANCE COPYWRITER Oxygen Saturation 94% 07/03/2023 11:20 PM FREELANCE COPYWRITER Inhaled Oxygen Concentration - - Weight 86.4 kg (190 lb 7.6 oz) 07/03/2023 10:39 PM FREELANCE COPYWRITER Height 162.6 cm (5' 4) 07/03/2023 10:39 PM FREELANCE COPYWRITER Body Mass Index 32.7 07/03/2023 10:39 PM FREELANCE COPYWRITER Plan of Treatment Health Maintenance Due Date Last Done Comments Tdap 08/23/1966 Depression screening for age 12+ 1967 BMI (ht and wt on same day) for age 18+ 08/23/1973 Hepatitis C screening for ag e 18-79 08/23/1973 Tetanus booster 1975 Lipids for age 45-75 08/23/2000 Mammogram for age 45-75 08/23/2000 Pneumococcal series for age 50+ (1 of 1 - PCV) 08/23/2005 Zoster (shingles) series for age 50+ (1 of 2) 08/23/2005 Colonoscopy through age 75 07/04/201707/04, 05/14/2008 DEXA/DXA scan for age 65+ 08/23/2020 COVID-19 vaccine series ( season) 2024 05/09/2021, 10/07/2020, 09/03/2020 Influenza Vaccine (Season Ended) 2025 RSV vaccine for adults or (1 - 1-dose 75+ series) 08/23/2030 Hepatitis B series for 19+ Aged Out N o longer eligible based on patient's age to complete this topic Procedures Procedure Name Priority Date/Time Associated Diagnosis Comments SCAN-COLONOSCOPY 05/14/2008 12:0 0 AM FREELANCE COPYWRITER from Last 3 Months or Most Recently Relevant to Health Maintenance Results * SCAN-COLONOSCOPY (05/14/2008 12:00 AM FREELANCE COPYWRITER) Narrative Procedure Note Scanner - 05/14/2008 12:00 AM FREELANCE COPYWRITER us Scanner OTHER Final Result from Last 3 Months or Most Recently Relevant to Health Maintenance Insurance [facility] MEDICARE ADVANTAGE MR MEDICARE PART B HB ONLY Care Teams Systems Trainer Relationship Specialty Start Date End Date Tiffany Fowler, FIRE CONTROL MECHANIC [address] [place] [address] MARCELO Rosales [id number] PCP - General Emergency Medicine 07/03/23
--- OUTSIDE RECORDS SUMMARY | 2024-11-21 09:56 | XMS_ITS | Clinical Summary ---
Author Organization [facility] Address [address] [place] [address] Care Team Providers Care Ehr Trainer Name Role Phone Navi Nguyen Primary Care Provider [phone] Allergies No known active allergies Medications levothyroxine (SYNTHROID) 75 MCG tablet Take 1 tablet (75 mcg total) by mouth 1 (one) time each day Active omeprazole (PriLOSEC) [address] capsule Take 1 capsule (40 mg total) by mouth 1 (one) time each day Do not crush or chew. Active hydroCHLOROthia zide (HYDRODIURIL) 25 MG tablet Take 1 tablet (25 mg total) by mouth 1 (one) time each day Active sertraline (ZOLOFT) 100 MG tablet Take 1 tablet (100 mg total) by mouth 1 (one) time each day Active melatonin tablet Take by mouth Active mupirocin (BACTROBAN) 2 % ointmentIndicat ions:Paronychia of finger, left Apply a small amount to the affected area three times daily for 10 days 22 g 05/31/2024 Active Active Problems Problem Noted Date Diagnosed Date Paronychia of finger, left 05/31/2024 Assessment & Plan (05/31/2024 6:17 PM ACCOUNTS RECEIVABLE PROCESSOR): Start cephalexin 1 tablet 4 times a day for the next 10 days. Start mupirocin ointment 3 times a day for the next 10 days topically around finger and cuticle. Keep finger clean use soap and water to wash the hand throughout the day. If in a dirty area please cover the area with a Band-Aid. Follow-up if symptoms get worse or not better after 10 days. Or if any fevers chills nausea vomiting. Immunizations Immunization Administration Dates Next Due DTP 03/21/1962,06/13/1956 DTaP 03/12/2009 Hep B, Unspecified 10/06/1992,05/15/1992, 992 Hepatitis B 10/06/1992,05/15/1992,04/04/1992 Influenza 6mo-64yrs Quad Pre servative Free IM 03/26/2020,05/26/2017,07/26/2016,04/11 Influenza, Split Virus, Triv alent, Preservative 04/30/2008 Influenza, Trivalent, PF 05/08/2013 Influenza, Unspecified 04/16/2021,2014(Deferred: Other),03/12/2009,05/31/2007 OPV 05/09/1973,06/13/1957,06/13/1956 Pneumococcal Polysaccharide 01/19/2021, 9 TD Preservative Free 01/02/2020 Td 11/25/1997, 3,03/21/1990,06/13 Td, Unspecified 11/25/1997,05/09/1993 Tdap 04/16/2021,03/12/2009,04/30/2008 Social History Tobacco Use Types Packs/Day Years Used Date Smoking Tobacco: Never Smokeless Tobacco: Never Tobacco Cessation:Counseling Given: Not Answered Alcohol Use Standard Drinks/Week Comments Never 0 (1 standard drink = 0.6 oz pur e alcohol) Comments No Sex and Gender Information Value Date Recorded Sex Assigned at Not on file Legal Sex Female 8:53 PM CDT Gender Identity Not on file Sexual Orientation Not on file Last Filed Vital Signs Vital Sign Reading Time Taken Comments Blood Pressure 134/68 05/31/2024 2:58 PM ACCOUNTS RECEIVABLE PROCESSOR Pulse 77 05/31/2024 2:58 PM ACCOUNTS RECEIVABLE PROCESSOR Temperature 36.6 C (97.9 F) 05/31/2024 2:58 PM ACCOUNTS RECEIVABLE PROCESSOR Respiratory Rate 16 05/31/2024 2:58 PM ACCOUNTS RECEIVABLE PROCESSOR Oxygen Saturation 92% 05/31/2024 2:58 PM ACCOUNTS RECEIVABLE PROCESSOR Inhaled Oxygen Concentration - - Weight 86.6 kg (191 lb) 05/31/2024 2:58 PM ACCOUNTS RECEIVABLE PROCESSOR Height 157 cm (5' 1.81) 05/31/2024 2:58 PM ACCOUNTS RECEIVABLE PROCESSOR Body Mass Index 35.15 05/31/2024 2:58 PM ACCOUNTS RECEIVABLE PROCESSOR Plan of Treatment Health Maintenance Due Date Last Done Comments Bone Density Scan 1955 CT Colonography 1955 FIT-DNA 1955 Sigmoidoscopy 1955 iFOBT 1955 Fall Risk Performed 08/23/1973 Medicare Annual Wellness Visit (AWV) 08/23/1973 Zoster Vaccines (1 of 2) 08/23/2005 Colonoscopy 05/14/2018 05/14/2008 Colorectal Cancer Screening 05/14/2018 Mammogram 01/16/2021 01/17/2020, 11/2019, 10/11/2017, Additional history exists Pneumococcal Vaccine: 50+ Years (2 of 2 - PCV) 01/19/2022 01/19/2021, 04/23/2009 COVID-19 Vaccine ( - season) 2024 05/09/2021, 10/07/2020, 09/03/2020 Influenza Vaccine (Season Ended) 2025 04/16/2021, 03/26/2020, 05/26/2017, Additional history exists DTaP,Tdap,and Td Vaccines (9 - Td or Tdap) 04/16/2031 04/16/2021, 01/02/2020, 03/12/2009, Additional history exists HPV Vaccines Aged Out No longer eligi ble based on patient's age to complete this topic Insurance [facility] MEDICARE ADVANTAGE Care Teams Ehr Trainer Relationship Specialty Start Date End Date Navi Nguyen PA [address] [place] [id number] PCP - General Family Medicine 06/21/24
--- OUTSIDE RECORDS SUMMARY | 2024-11-21 09:56 | XMS_ITS | Clinical Summary ---
Author Organization [facility] Address [address] [place] [address] Care Team Providers Care Rehab Aid Name Role Phone Elsewhere, Pcp Primary Care Provider Unavailabl e Source Comments Patient records contain information from all sites at [facility]. For routine questions regarding patient records, call [phone] during business hours, M-F 8:00 AM - 5:00 PM Central Time. Record requests for emergency care only can be directed to [phone] at any time.[facility] Allergies Active Allergy Reactions Criticality Noted Date Comments Hydrocortisone Other (see comments) Medium 01/31/2012 Throat tightening Triamcinolone Other (see comments) Medium 01/31/2012 Unclear symptoms and many years ago. Has tried other steroid formulations without recurrent or severe intolerances. Medications * This document contains information received from the source organization and may not represent a complete record from that organization. acetaminophen (TYLENOL EXTRA STRENGTH) 500 mg tablet Take 1 tablet by mouth every 6 (six) hours as needed. 5 Active ibuprofen (for_ADVIL,MOTR IN) 200 mg tablet Take 1-2 tablets by mouth as needed. 2 Active ipratropium-alb uterol (DUO-NEB) 0.5-2.5 mg/3 mL nebulizer solution Take 3 mL by nebulization 4 (four) times a day as needed for wheezing or shortness of breath (shortness of breath, wheezing). 360 mL 11 9 Active Ventolin HFA inhaler INHALE TWO PUFFS BY MOUTH EVERY 6 HOURS NEEDED FOR WHEEZING 1 Inhaler 3 1 Active hydroCHLOROthia zide (HYDRODIURIL) 25 mg tablet Take 1 tablet (25 mg total) by mouth daily. 90 tablet 2 Active levothyroxine (SYNTHROID, LEVOTHROID) 75 mcg tablet Take 1 tablet (75 mcg total) by mouth daily with breakfast. 90 tablet 2 Active omeprazole (PriLOSEC) [address] capsule Take 1 capsule (40 mg total) by mouth every morning before breakfast. 90 capsule 2 Active sertraline (ZOLOFT) 100 mg tablet Take 1.5 tablets (150 mg total) by mouth daily. 135 tablet 3 3 Active Active Problems Problem Noted Date Diagnosed [...] Immunization 05/26/2017 Hypertension Chronic 06/09/2012 021 Immunizations Immunization Administration Dates Next Due DTP 03/21/1962,06/13/1956 DTaP (Infanrix, [employer]) 03/12/2009 HepB, Unspecified 10/06/1992,05/15/1992,04/04/19 92 Influenza, Seasonal, Injectable 04/30/2008 Influenza, Unspecified 03/12/2009,05/31/2007 OPV 05/09/1973,06/13/1957,06/13/1956 PPSV23 01/19/2021,04/23/2009 SARS-COV-2 (COVID-19) - PFIZ ER (Discontinued)(12 years or older) 10/07/2020,09/03/2020 Td (Adult), adsorbed 03/21/1990,06/13/1964 Td Preservative Free (TENIVA C, DECAVAC) 01/02/2020 Td, (Adult) Unspecified 11/25/1997,05/09/1993 Tdap 03/12/2009,04/30/2008 influenza trivalent vaccine (6 months and older)(PF) 05/08/2013 influenza vaccine quad (FLUZONE/FLUARIX) (6 months and [...] often do you attend chur ch or restoration services? More than 4 times per year [...] Answer Date Recorded PHQ-2 Score 1 [facility] [...] 27) 7 03/25 Nutrition Answer Date Recorded On average, how many serving s of fruits and vegetables do you eat per day (serving size is equal to 1 cup or approximately the size of a tennis ball)? 2-3 06/24/2021 Dental Answer Date Recorded Dental: Regular Dentist Unknown 07/08/19 25 Employment Answer Date Recorded Employment status Retired 06/24/2021 Education Answer Date Recorded What is the highest level of school you have completed or the highest degree you have received? 12th grade 12/31/2019 Comments No Sex and Gender Information Value Date Recorded Sex Assigned at Female 06/24/2021 3:47 PM [employer] Legal Sex Female 8:05 AM [employer] REPA[employer] Gender Identity Female 01/12/2018 9:08 AM CDT Sexual Orientation Straight 01/12/2018 9: 08 AM CDT Last Filed Vital Signs Vital Sign Reading Time Taken Comments Blood Pressure 121/66 01/19/2021 11:15 AM CDT Pulse 65 01/19/2021 11:15 AM CDT Temperature 36.5 C (97.7 F) 01/19/2021 11:15 AM CDT Respiratory Rate 16 01/19/2021 11:15 AM CDT [...] Screen) 1955 CT Colonography 1955 Cologuard 1955 Depression Monitoring (PHQ-9) 1955 Office Visit for Blood Press ure Check / Re-check 1955 Zoster Vaccines (2 of 2) 01/25/2017 11/30/2016 Colonoscopy 07/14/2017 07/14/2012 (Perf ormed elsewhere), 05/14/2008, 05/14/2008 Colorectal Cancer Surveillance 07/14/2017 Mammogram 01/16/2021 01/17/2020, 05/06/2017, 07/22/2016, Additional history exists Creatinine Level (Kidney Fun ction Test) 12/18/2021 12/18/2020, 05/12/2020, 01/17/2020, Additional history exists Lipid (Cholesterol) Screening 12/18/2021, 01/17/2020, 09/29/2017, Additional history exists Potassium Level 12/18/2021 12/18/2020, 04/15, 01/17/2020, Additional history exists Sodium Level 12/18/2021 12/18/2020, 04/15, 01/17/2020, Additional history exists Thyroid Stimulating Hormone (TSH) test for thyroid function 12/18/2021 12/18/2020, 01/17/2020, 09/29/2017, Additional history exists Pneumococcal vaccine (50+ ye ars) (2 of 2 - PCV) 01/19/2022 01/19/2021, 04/23/2009 Fasting Glucose for Diabetes Screening 12/19/2023 12/18/2020, 05/12/2020, 01/17/2020, Additional history exists COVID-19 Vaccine (4 - 2023-2 5 season) 2024 05/09/2021, 10/07/2020, 09/03/2020 Influenza Vaccine (#1) 2024 , 03/26/2020, 05/26/2017, Additional history exists Depression Monitoring (PHQ-9 for quality tracking) 06/13/2024 Fall Risk Screen (Annual) 06/13/2024 DTaP,Tdap,and Td Vaccines (9 - Td or Tdap) 04/16/2031 04/16/2021, 01/02/2020, 03/12/2009, Additional history exists IPV Vaccines Completed 05/09/1973, 06/1957, 06/13/1956 Hepatitis B Vaccines Completed 10/06/1992, 05/15/1992, 04/04/1992 [...] 9:24 AM CDT 12/18/2020 10:29 AM CDT us Navi SchwabC. LAB BLOOD ADD-ON Final Result Performing Organization Address City/[facility] Co de Phone Number [facility] [address] [address], [facility] [place] [address] [place] [phone] * S-TSH (Thyroid-Stimulating Hormone - Sensitive) (12/18/2020 9:24 AM CDT) TSH, Sensitive 1.2 0.3 - 4.2 mIU/L 12/18/2020 11:04 AM CDT OWAT Blood (Blood, Venous) 12/18/2020 9:24 AM CDT 12/18/2020 10:30 AM CDT us Navi SchwabC. LAB BLOOD ADD-ON Final Result Performing Organization Address City/[facility]/ZIP Co de Phone Number [facility] [address] [place] [address], [facility] [place] [address], [place] [address] * (ABNORMAL) Comprehensive Metabolic Panel (12/18/2020 9:24 [...] 9:24 AM CDT 12/18/2020 10:29 AM CDT us Navi Nguyen P.A.-C. LAB BLOOD ADD-ON Final Result [facility] [address] [place] [address], [facility] [place] [address] [place] [address] * BI Breast Screening Bilateral with Tomosynthesis (01/17/2020 8:32 AM CDT) Anatomical Region Laterality Modality Breast, Breast Imaging RST L OS, Breast Imaging ARZ LOS, Breast Imaging FLA LOS Bilateral Mammography 01/17/2020 8:51 AM CDT Impressions 01/17/2020 8:52 AM CDT Negative. RECOMMENDATION: Annual Screening Mammogram ASSESSMENT: BI-RADS: 1: Negative. Narrative 01/17/2020 8:52 AM CDT EXAM: BI BREAST SCREENING BILATERAL WITH TOMOSYNTHESIS Current study was evaluated with a Computer Aided Detection (CAD) system. INDICATION: Screening mammogram. COMPARISON: Prior exam(s) were available and reviewed for comparison. DENSITY: c. The breast(s) are heterogeneously dense, which may obscure small masses. FINDINGS: No mammographic findings of malignancy. Procedure Note Bernabe [...] Annual Screening Mammogram ASSESSMENT: BI-RADS: 1: Negative. us Agustin Stuart M.D. IMG BI PROCEDURES Final Resu lt * HCV Ab Scrn w/Reflex to HCV PCR (09/29/2017 10:53 AM CDT) HCV Ab Screen, S Negative Negative 09/30/2017 8:33 AM CDT [facility] Comment:[id number] rat io is <1.00. Blood (Blood, Venous) 09/29/2017 10:53 AM CDT 09/30/2017 7:24 AM CDT us Agustin Stuart M.D. LAB MICROBIOLOGY - BLOOD ORD ERABLES Final Result [facility] [address] [place] [address] from Last 3 Months or Most Recently Relevant to Health Maintenance Insurance * Guarantor: Margaret Castillo Account Type Relation to Patient Date of Phone Billing Address Personal/Family Self [address] [place] [address] [facility] Care Teams Rehab Aid Relationship Specialty Start Date End Date Elsewhere, Pcp PCP - General Internal Medicine 02/01/22
[2024-11-21 09:57] LABS: Albumin* 4.3 g/dL (3.3-5.0); Chloride* 103 mmol/L (96-114); Potassium* 3.9 mmol/L (3.6-5.1); Sodium* 138 mmol/L (135-149)
[2024-11-21 10:00] LABS: Alanine Aminotransferase* 22 U/L (4-35); Alkaline Phosphatase* 66 U/L (40-150); Anion Gap 7 mEq/L (7-15); Aspartate Amino Transferase* 42 U/L (12-35); Bilirubin Direct* 0.1 mg/dL (0.0-0.5); Bilirubin Total* 0.6 mg/dL (0.1-1.5); Blood Urea Nitrogen* 18 mg/dL (7-30); Calcium* 9.7 mg/dL (8.4-10.6); Carbon Dioxide* 28 mmol/L (20-32); Creatinine* 0.7 mg/dL (0.5-1.5); Est. Creatinine Clearance* 45.85; Estimated Glomerular Filt Rate 94 ml/min; Glucose* 106 mg/dL (60-115); INR 1.03 (0.91-1.10); Prothrombin Time 14.4 Seconds
[2024-11-21 10:01] LABS: Partial Thromboplastin Time* 25 Seconds (23-33)
[2024-11-21 10:10] LABS: NT Pro B Type NatriureticPept* 260 pg/mL (See Note)
[2024-11-21] MEDS: PANTOPRAZOLE SODIUM 40 MG INJ IVP (11:13)
[2024-11-21] MEDS: 0.9 % SODIUM CHLORIDE 500 ML 500 ML IV (11:13)
== END 2024-11-21 11:51 | disposition home or self-care (01) ==
PROVIDERS: Emergency Provider Family Medicine; PCP Nurse Practitioner Family
DX: R00.2 Palpitations (principal); R07.9 Chest pain, unspecified; K62.5 Hemorrhage of anus and rectum; K64.4 Residual hemorrhoidal skin tags
CPT/HCPCS: 36415; 71045; 80048; 80076; 82270; 83880; 84484; 85025; 85610; 85730; 93005; 94761; 96374; 99284; 99285; J2470; J7030

== ENCOUNTER 2025-01-15 11:30 | Outpatient (CLI) | payer MEDICARE, SELFPAY | END 2025-01-15 11:31 | disposition home or self-care (01) | PROVIDERS: PCP Nurse Practitioner Family; Visit Provider Nurse Practitioner Family | DX: E55.9 Vitamin D deficiency, unspecified (principal); E78.5 Hyperlipidemia, unspecified; T14.8XXA Other injury of unspecified body region, initial encounter | CPT/HCPCS: 85025; 85730 ==